=== PATIENT | male | born 1935 | race Caucasian/White ===

== ENCOUNTER 2016-07-12 14:28 | Inpatient (IN) | payer MEDICAID, MEDICARE ==
[~2016-07-12] VITALS: Ht 172.7 cm; Wt 55.0 kg
[~2016-07-12 14:28] MED LIST: ASPI1TAB PO; ATEN25TA PO; CITA20TA4 PO; FINA5TAB2 PO; FLOM5CAP PO; FOLI1TAB2 PO; LISI10TA4 PO; MIRT30TA3 PO; NITR0.4S14 SL; NORCOTAB PO; SIMV5TAB4 PO; TRAM50TA2 PO; VITMTA PO
[2016-07-12] MEDS ORDERED: IPRATROPIUM 0.5MG/ALBUTEROL 2.5MG INH SOL UD 3ML (DUONEB)(J7620) As Ordered ONE (16:59)
[2016-07-12] MEDS ORDERED: ALBUTEROL SULFATE 2.5 MG/0.5 ML INH NEB SOLN As Ordered ONE (16:59)
[2016-07-12] MEDS: FUROSEMIDE 40 MG/4 ML VIAL (J1940) IV SCH (17:00)
[2016-07-12] MEDS ORDERED: methylPREDNISolone INJ 125 MG/2 ML VIAL (J2930) As Ordered ONE (17:12)
[2016-07-12 17:18] LABS: MEAN CORPUSCULAR HEMOGLOBIN 29.3 pg (27.0-33.0); MEAN CORPUSCULAR HGB CONC 35.6 g/dl (32.0-36.5); MEAN CORPUSCULAR VOLUME 82.1 fl (80.0-96.0); RED CELL DISTRIBUTION WIDTH 14.6 % (11.5-14.5)
[2016-07-12 17:44] LABS: ALBUMIN 3.2 GM/DL (3.2-5.2); ALBUMIN/GLOBULIN RATIO 0.89 (1.00-1.93); ALKALINE PHOSPHATASE 135 U/L (45-117); ALT/SGPT 16 U/L (12-78); AMYLASE 20 U/L (25-115); ANION GAP 14 MEQ/L (8-16); AST/SGOT 17 U/L (15-37); BILIRUBIN,DIRECT 0.2 MG/DL (0.0-0.2); BILIRUBIN,TOTAL 0.6 MG/DL (0.2-1.0); BLOOD UREA NITROGEN 4 MG/DL (7-18); CALCIUM LEVEL 8.2 MG/DL (8.8-10.2); CARBON DIOXIDE LEVEL 23 MEQ/L (21-32); CHLORIDE LEVEL 80 MEQ/L (98-107); GLOMERULAR FILTRATION RATE > 60.0 (>35); GLUCOSE, FASTING 99 MG/DL (83-110); POTASSIUM SERUM 3.7 MEQ/L (3.5-5.1); SODIUM LEVEL 117 MEQ/L (136-145); TOTAL PROTEIN 6.8 GM/DL (6.4-8.2)
[2016-07-12] MEDS ORDERED: OXAZEPAM 10 MG CAP As Ordered ONE (18:40)
[2016-07-12 19:09] LABS: AMPHETAMINES LEVEL URINE NEGATIVE (NEGATIVE); BENZODIAZEPINES URINE NEGATIVE (NEGATIVE); COCAINE METABOLITE URINE NEGATIVE (NEGATIVE); CONTROL LINE INT CTR LINE PRESENT; METHADONE URINE NEGATIVE (NEGATIVE); OPIATES URINE NEGATIVE (NEGATIVE); TRICYCLIC ANTIDEPRESS URINE NEGATIVE (NEGATIVE)
[2016-07-12 19:12] LABS: FREE T4 1.52 NG/DL (0.76-1.46)
[2016-07-12] MEDS ORDERED: ATOR1TAB19 PO (19:16)
[2016-07-12] MEDS ORDERED: BISACODYL 5 MG TAB PO PRN (20:15)
[2016-07-12] MEDS ORDERED: IPRATROPIUM 0.5MG/ALBUTEROL 2.5MG INH SOL UD 3ML (DUONEB)(J7620) NEB PRN (20:30)
[2016-07-12] MEDS ORDERED: NITROGLYCERIN 0.4 MG SUBL TABLET SL PRN (20:30)
[2016-07-12] MEDS ORDERED: FUROSEMIDE 40 MG/4 ML VIAL (J1940) As Ordered ONE (20:40)
[2016-07-12] MEDS ORDERED: LORazepam 2 MG/ML VIAL (J2060) IV PRN (20:45)
--- NOTE | 2016-07-12 20:58 | REP ---
CHEST, ONE VIEW: HISTORY: Shortness of breath. COMPARISON: 05/02/2016 Calcified granuloma are present in the lungs. An increase in interstitial markings is present in the lungs. Linear densities are present in the left lower lobe consistent with scarring. The heart is normal in size. The pulmonary vasculature is normal in appearance. IMPRESSION: 1. Old granulomatous disease. 2. COPD. 3. Left lower lobe scarring. Signed by Arvin Barclay MD 07/13/2016 08:18 A
[2016-07-12 21:32] LABS: INR 1.05
[2016-07-12 21:35] LABS: ANION GAP 12 MEQ/L (8-16); BLOOD UREA NITROGEN 6 MG/DL (7-18); CARBON DIOXIDE LEVEL 23 MEQ/L (21-32); CHLORIDE LEVEL 82 MEQ/L (98-107); CREATININE FOR GFR 0.63 MG/DL (0.70-1.30); GLOMERULAR FILTRATION RATE > 60.0 (>35); GLUCOSE, FASTING 130 MG/DL (83-110); PHOSPHORUS LEVEL 2.5 MG/DL (2.5-4.9); POTASSIUM SERUM 3.8 MEQ/L (3.5-5.1); SODIUM LEVEL 117 MEQ/L (136-145)
--- NOTE | 2016-07-12 23:04 | EDDOCDS ---
Physician Documentation [facility] Name: Clint Gresham Age: 81 yrs Sex: Male : 1935 Arrival Date: 07/12/2016 Time: 14:28 Bed 7 Private MD: [facility] Disposition: 07/12 21:15 Critical Care:. ml Disposition: 07/12/16 19:45 Hospitalization ordered by Rosi Cummings for Inpatient Admission. Preliminary diagnosis are Hypo-osmolality and hyponatremia, Alcohol abuse counseling and surveillance, Alcohol abuse, Chronic obstructive pulmonary disease with (acute) exacerbation. - Bed requested for PCU. - Status is Inpatient Admission. jul - Condition is Stable. - Problem is new. - Symptoms are unchanged. Historical: - Allergies: No known drug Allergies; - Home Meds: 1. Aspirin Oral 2. Atenolol Oral Unknown 3. Folic Acid Oral 4. Lisinopril Oral 5. Simvastatin Unknown - PMHx: bowel obstruction; Cancer, Colon; COPD; Hypercholesterolemia; Hypertension; ulcers; - PSHx: Cholecystectomy; back surgery; perforated ulcer; Colon Resection; - Social history: Smoking status: Patient uses tobacco products, heavy tobacco smoker. No barriers to communication noted, The patient speaks fluent Welsh. - Family history: Not pertinent. - : The pt / caregiver states he / she is not on anticoagulants. Home medication list is obtained from [employer] import data. - Exposure Risk Screening:: None identified. Vital Signs: 14:30 BP 100 / 65 LA Sitting (auto/reg); Pulse 82; Resp 20; Temp 98.7; Pulse Ox 95% ; Weight cmb 66.68 kg / 147 lbs; Height 5 ft. 8 in. (172.72 cm); Pain 7/10; 17:35 BP 158 / 70 (auto/); js13 17:35 Pulse 66 MON; Resp 18; Pulse Ox 96% on 2 lpm NC; js13 17:50 BP 172 / 74 (auto/); js13 17:50 Pulse 70 MON; Resp 18; Pulse Ox 96% on 2 lpm NC; js13 18:05 BP 158 / 70 (auto/); js13 18:05 Pulse 70 MON; Resp 20; Pulse Ox 96% on 2 lpm NC; js13 18:49 Pulse 70 MON; Resp 22 S; Pulse Ox 88% on 2 lpm NC; jace 18:50 BP 168 / 67 (auto/); jace 19:04 Pulse 68 MON; Resp 18 S; Pulse Ox 88% on 2 lpm NC; jace 19:05 BP 174 / 82 (auto/); jace 19:19 Pulse 90 MON; Resp 20; Pulse Ox 94% 2 lpm ; jace 19:20 BP 178 / 81 (auto/); jace 19:34 Pulse 74 MON; Resp 16 S; Pulse Ox 93% on 2 lpm NC; jace 19:35 BP 176 / 80 (auto/); jace 19:49 Pulse 78 MON; Resp 20 S; Pulse Ox 93% on 2 lpm NC; jace 19:50 BP 168 / 76 (auto/); jace 20:04 Pulse 76 MON; Resp 22 S; Pulse Ox 97% on 2 lpm NC; jace 20:05 BP 197 / 88 (auto/); jace 20:19 Pulse 70 MON; Resp 20 S; Pulse Ox 95% on 2 lpm NC; jace 20:20 BP 175 / 66 (auto/); jace 20:34 Pulse 68 MON; Resp 18 S; Pulse Ox 98% on 2 lpm NC; jace 20:35 BP 176 / 80 (auto/); jace 22:05 BP 167 / 75; Pulse 84 MON; Resp 22; Pulse Ox 97% on 2 lpm NC; jace 14:30 Body Mass Index 22.35 (66.68 kg, 172.72 cm) cmb MDM: 16:45 IV Saline Lock ordered. ml 16:45 Consult PFS/PSA/Meter And Regulator Shop Supervisor ordered. ml 16:45 Consult PFS/PSA/Meter And Regulator Shop Supervisor: Patient's case requires discussion with on-call ml Psychiatrist ordered. 16:45 PSA/PFS to call Nursing Customer Operations Associate, to enter patient data on [place] Safe Act if patient ml involuntarily admitted or transferred for SI or HI ordered. 16:45 Stroke Belt Sander Operator/Pulse Ox/q 15 min VS ordered. ml 16:45 Confirm accurate psychiatric medication list and times of last dosage ordered. ml 16:45 Detain Pt Until Medically/PFS Cleared ordered. ml 16:45 Rhythm Strip to chart ordered. ml 16:45 Albuterol 5 mg Nebulizer once ordered. ml 16:45 Albuterol-Ipratropium 3 ml Inhalation once ordered. ml 16:45 Call Respiratory ordered. ml 16:45 Solu-MEDROL 125 mg IVP once ordered. ml 16:46 Acetaminophen Level Ordered. EDMS 16:46 Basic Metabolic Profile Ordered. EDMS 16:46 Complete Blood Count Ordered. EDMS 16:46 Drug Eval Toxicology ED Only Ordered. EDMS 16:46 Ethyl Alcohol (ethanol) Ordered. EDMS 16:46 Liver Profile Ordered. EDMS 16:46 Salicylate Level Ordered. EDMS 16:46 Thyroid Stimulating Hormone Ordered. EDMS 16:47 Chest, 1 View Ordered. EDMS 16:47 ECG WITH READING ER PHYS+CARDIAG ordered. EDMS 16:47 Call Respiratory complete. js13 16:55 AMYLASE Ordered. EDMS 16:55 LIPASE Ordered. EDMS 18:06 Complete Blood Count Reviewed. ml 18:06 NS 0.9% 1000 ml IV at 100 mL/hr continuous ordered. ml 18:07 BED REQUEST+ADM ordered. EDMS 18:07 Urine Random,Sodium Ordered. EDMS 18:07 Osmolality, Serum Ordered. EDMS 18:07 Osmolality,Urine Ordered. EDMS 18:07 TSH with Free T4 Ordered. EDMS 18:07 Urine Random,Creatinine Ordered. EDMS 18:21 Acetaminophen Level Reviewed. ml 18:21 Basic Metabolic Profile Reviewed. ml 18:21 Ethyl Alcohol (ethanol) Reviewed. ml 18:21 Liver Profile Reviewed. ml 18:21 Salicylate Level Reviewed. ml 18:21 AMYLASE Reviewed. ml 18:21 Thyroid Stimulating Hormone Reviewed. ml 18:21 LIPASE Reviewed. ml 18:22 Oxazepam 20 mg PO once ordered. ml 18:48 BED REQUEST+ADM ordered. EDMS 19:31 Financial registration complete. gjb 19:43 Admission / Observation Status ordered. EDMS 20:14 Furosemide 40 mg IVP once ordered. ss12 20:18 LOW FAT LOW CHOLESTEROL DIET ordered. EDMS 20:19 [facility] [place] Payment Agreement was scanned into [employer] and attached to record. gjb 20:19 PHYSICAL THERAPY EVAL & TREAT ordered. EDMS 20:22 RENAL PROFILE Ordered. EDMS 20:23 CBC WITH DIFFERENTIAL Ordered. EDMS 20:23 RENAL PROFILE Ordered. EDMS 20:23 RENAL PROFILE Ordered. EDMS 20:23 RENAL PROFILE Ordered. EDMS 20:23 RENAL PROFILE Ordered. EDMS 20:23 RENAL PROFILE Ordered. EDMS 20:25 Admission / Observation Status ordered. EDMS 20:25 Attending Doctor Change: ordered. EDMS 20:25 BRAIN NATIURETIC PEPTIDE Ordered. EDMS 20:25 AMMONIA Ordered. EDMS 20:33 CORTISOL AM Ordered. EDMS 20:39 ANTI-DIURETIC HORMONE Ordered. EDMS 20:49 THYROGLOBULIN ANTIBODIES Ordered. EDMS 20:56 RENAL PROFILE Ordered. EDMS 21:10 LIVER US Ordered. EDMS 21:11 PROTHROMBIN TIME PROFILE\E\INR Ordered. EDMS 21:45 ECHOCARD,DOPPLER/COLOR FLOW ordered. EDMS Administered Medications: 17:07 Drug: Albuterol 5 mg [albuterol sulfate 2.5 mg/0.5 mL solution for nebulization (1 mL)] sd7 Route: Nebulizer; 17:18 Follow up: Response: Nebulizer completed 17:07 Drug: Albuterol-Ipratropium 3 ml [ipratropium-albuterol 0.5 mg-3 mg(2.5 mg base)/3 mL sd7 nebulization soln (3 mL)] Route: Inhalation; 17:18 Follow up: Response: Nebulizer completed 7 17:14 Drug: Solu-MEDROL 125 mg [Solu-Medrol 500 mg intravenous solution (125 mg)] Route: IVP; js13 Site: left antecubital; 18:16 Drug: NS 0.9% 1000 ml [sodium chloride 0.9 % intravenous solution] Route: IV; Rate: 100 js13 mL/hr; Site: left antecubital; 21:00 Follow up: IV Status: Infusion discontinued jace 18:44 Drug: Oxazepam 20 mg [oxazepam 10 mg capsule (2 caps)] Route: PO; js13 20:48 Drug: Furosemide 40 mg [furosemide 10 mg/mL injection solution (4 mL)] Route: IVP; jace Site: left antecubital; Critical Care Time: 21:15 Critical care time: Bedside Care: 120 minutes, Consultation: 10 minutes. Total time: ml 130 minutes Signatures: Dispatcher [employer] EDMS Kristyn Valdivia MD MD ml Sleeman, Kacey RN Mony Kapoor RN Carl Tavarez, Lease Picker Unit ml3 Tete Jackman RN RN js13 Yannick Vitale12 Kayley Alves Carolyn RN cas Woodhouse, Samantha RT sd7 The chart was reviewed and I authenticate all verbal orders and agree with the evaluation and treatment provided.Corrections: (The following items were deleted from the chart) 16:55 16:47 LIPASE+LAB ordered. EDMS EDMS 16:55 16:47 AMYLASE+LAB ordered. EDMS EDMS 20:56 20:23 RENAL PROFILE ordered. EDMS EDMS 21:49 21:48 THYROID PROFILE ordered. EDMS EDMS 21:54 21:49 THYROID BINDING GLOBULIN ordered. EDMS EDMS Attachments: 20:19 [facility] [place] Payment Agreement gjb [email or web address]
--- NOTE | 2016-07-12 23:05 | EDDOCDS ---
Nurse's Notes [facility] Name: Clint Gresham Age: 81 yrs Sex: Male : 1935 Arrival Date: 07/12/2016 Time: 14:28 Bed 7 Private MD: [facility] [place] Diagnosis: Hypo-osmolality and hyponatremia;Alcohol abuse counseling and surveillance;Alcohol abuse;Chronic obstructive pulmonary disease with (acute) exacerbation Presentation: 07/12 15:02 Presenting complaint: Patient states: he is here because he drank too much beer and kcs needs something to calm him down. Mental Health Triage Level: Level 1- Pt displays no suicidal or homicidal ideations and does not appear to be a danger to self or others. Adult Sepsis Screening: The patient does not have new or worsening altered mentation. Patient has a respiratory rate of greater than or equal to 22 (1 point). Systolic blood pressure is less than or equal to 100 (1 point). Patient has a qSOFA score of 2. No known or suspected infection- Negative Sepsis Screen. Suicide/Homicide risk assessment- the patient denies having any suicidal and/or homicidal ideations and does not present with any other emotional, behavioral or mental health complaints. Status: Patient is not a service writer or dependent. Transition of care: patient was not received from another setting of care. 15:02 Acuity: NADJA Level 3 kcs 15:02 Method Of Arrival: Wheelchair kcs Triage Assessment: 15:05 General: Appears comfortable, slender, well developed, well nourished, Behavior is kcs cooperative, pleasant. Pain: Location: back Pain currently is 10 out of 10 on a pain scale. Neurological: Level of Consciousness is awake, alert. Respiratory: Airway is patent Respiratory effort is even, unlabored, Respiratory pattern is regular, symmetrical. Derm: Skin is intact, is healthy with good turgor, Skin is dry, Skin is normal. Historical: - Allergies: No known drug Allergies; - Home Meds: 1. Aspirin Oral 2. Atenolol Oral Unknown 3. Folic Acid Oral 4. Lisinopril Oral 5. Simvastatin Unknown - PMHx: bowel obstruction; Cancer, Colon; COPD; Hypercholesterolemia; Hypertension; ulcers; - PSHx: Cholecystectomy; back surgery; perforated ulcer; Colon Resection; - Social history: Smoking status: Patient uses tobacco products, heavy tobacco smoker. No barriers to communication noted, The patient speaks fluent Malay. - Family history: Not pertinent. - : The pt / caregiver states he / she is not on anticoagulants. Home medication list is obtained from [facility] import data. - Exposure Risk Screening:: None identified. Screenin:14 Screening information is obtained from the patient. Fall risk: At risk due to age, js13 apparent chemical impairment. Assistance ADL's: requires no assistance with activities of daily living. Abuse/DV Screen: The patient / caregiver reports he/she is: not in a situation that causes fear, pain or injury. Nutritional screening: No deficits noted. Advance Directives: There is no active DNR order. home support is adequate. Assessment: 17:14 General: Appears in no apparent distress, Behavior is appropriate for age, cooperative. js13 Pain: Denies pain. Neurological: Level of Consciousness is awake, alert. Cardiovascular: Rhythm is sinus rhythm with 1st degree heart block Chest pain is denied. Respiratory: Airway is patent Respiratory effort is even, Respiratory pattern is regular, Breath sounds with rhonchi Breath sounds with wheezes. Derm: Skin is pink, warm & dry. 17:47 General: Appears in no apparent distress, comfortable, to be sleeping. Respiratory: js13 Airway is patent Respiratory effort is even, unlabored, Respiratory pattern is regular, Breath sounds with rhonchi Breath sounds with wheezes. Derm: Skin is pink, warm & dry. 18:19 General: Appears in no apparent distress, comfortable, Behavior is appropriate for age, js13 cooperative. Pain: Denies pain. Neurological: Level of Consciousness is awake, alert. Cardiovascular: Rhythm is sinus rhythm Chest pain is denied. Respiratory: Airway is patent Respiratory effort is even, unlabored, Respiratory pattern is regular, Breath sounds with rhonchi Breath sounds with wheezes. Derm: Skin is pink, warm & dry. 20:00 Reassessment: Patient appears in no apparent distress at this time. Patient denies pain jace at this time. General: Appears in no apparent distress, Behavior is appropriate for age, cooperative. Neurological: No deficits noted. Cardiovascular: Rhythm is sinus rhythm. Respiratory: Airway is patent Respiratory effort is even, unlabored, Respiratory pattern is regular, Breath sounds with rhonchi bilaterally. GI: Abdomen is non- distended. Derm: Skin is pink, warm & dry. 21:00 Reassessment: Patient appears in no apparent distress at this time. General: Appears in jace no apparent distress, Behavior is appropriate for age, cooperative. Neurological: No deficits noted. Cardiovascular: Rhythm is sinus rhythm. Respiratory: Airway is patent Respiratory effort is even, unlabored. GI: Abdomen is non- distended. Derm: Skin is pink, warm & dry. 22:00 Reassessment: Patient appears in no apparent distress at this time. General: Appears jace comfortable, Behavior is appropriate for age, cooperative. Neurological: No deficits noted. Cardiovascular: Rhythm is sinus rhythm. Respiratory: Airway is patent Respiratory effort is even, unlabored, Respiratory pattern is regular. GI: Abdomen is flat, non- distended. Derm: Skin is pink, warm & dry. 22:51 Reassessment: Patient appears in no apparent distress at this time. General: Appears jace comfortable. Pain: Denies pain. Neurological: No deficits noted. Cardiovascular: Rhythm is sinus rhythm. Respiratory: Airway is patent Respiratory effort is even, Respiratory pattern is regular. Derm: Skin is pink, warm & dry. Vital Signs: 14:30 BP 100 / 65 LA Sitting (auto/reg); Pulse 82; Resp 20; Temp 98.7; Pulse Ox 95% ; Weight cmb 66.68 kg; Height 5 ft. 8 in. (172.72 cm); Pain 7/10; 17:35 BP 158 / 70 (auto/); js13 17:35 Pulse 66 MON; Resp 18; Pulse Ox 96% on 2 lpm NC; js13 17:50 BP 172 / 74 (auto/); js13 17:50 Pulse 70 MON; Resp 18; Pulse Ox 96% on 2 lpm NC; js13 18:05 BP 158 / 70 (auto/); js13 18:05 Pulse 70 MON; Resp 20; Pulse Ox 96% on 2 lpm NC; js13 18:49 Pulse 70 MON; Resp 22 S; Pulse Ox 88% on 2 lpm NC; jace 18:50 BP 168 / 67 (auto/); jace 19:04 Pulse 68 MON; Resp 18 S; Pulse Ox 88% on 2 lpm NC; jace 19:05 BP 174 / 82 (auto/); jace 19:19 Pulse 90 MON; Resp 20; Pulse Ox 94% 2 lpm ; jace 19:20 BP 178 / 81 (auto/); jace 19:34 Pulse 74 MON; Resp 16 S; Pulse Ox 93% on 2 lpm NC; jace 19:35 BP 176 / 80 (auto/); jace 19:49 Pulse 78 MON; Resp 20 S; Pulse Ox 93% on 2 lpm NC; jace 19:50 BP 168 / 76 (auto/); jace 20:04 Pulse 76 MON; Resp 22 S; Pulse Ox 97% on 2 lpm NC; jace 20:05 BP 197 / 88 (auto/); jace 20:19 Pulse 70 MON; Resp 20 S; Pulse Ox 95% on 2 lpm NC; jace 20:20 BP 175 / 66 (auto/); jace 20:34 Pulse 68 MON; Resp 18 S; Pulse Ox 98% on 2 lpm NC; jace 20:35 BP 176 / 80 (auto/); jace 22:05 BP 167 / 75; Pulse 84 MON; Resp 22; Pulse Ox 97% on 2 lpm NC; jace 14:30 Body Mass Index 22.35 (66.68 kg, 172.72 cm) cmb Vitals: 14:30 Log In Time: July 12, 2016 at 14:27. cmb ED Course: 14:28 Patient visited by Angelina Garcia. cmb 14:28 Patient moved to Waiting cmb 14:30 [facility] [place] is Private Physician. cmb 14:35 Patient moved to Pre RCE cmb 15:04 Triage Initiated kcs 15:46 Patient moved to Triage 3 ar3 16:21 Tete Jackman,RN is Primary Nurse. mb9 16:21 Patient moved to 7 mb9 16:36 Kristyn Valdivia MD is Attending Physician. ml 16:36 Patient visited by Kristyn Valdivia MD. ml 17:00 Inserted saline lock:. jace 17:07 LIPASE Sent. js13 17:07 AMYLASE Sent. js13 17:07 Acetaminophen Level Sent. js13 17:07 Basic Metabolic Profile Sent. js13 17:07 Complete Blood Count Sent. js13 17:07 Ethyl Alcohol (ethanol) Sent. js13 17:08 Liver Profile Sent. js13 17:08 Salicylate Level Sent. js13 17:08 Thyroid Stimulating Hormone Sent. js13 17:10 EKG done. (by ED staff). Reviewed by Kristyn Valdivia MD. dem1 17:14 The patient / caregiver is instructed regarding the plan of care and ED course. Placed js13 in gown. Bed in low position. Call light in reach. Side rails up X2. visitor services technician on. Pulse ox on. NIBP on. 17:16 Patient visited by Tete Jackman,JT. js13 17:16 Patient visited by Shan De La Torre. dem1 17:48 Patient visited by Tete Jackman,JT. js13 18:16 Osmolality, Serum Sent. js13 18:16 TSH with Free T4 Sent. js13 18:20 Patient visited by Tete Jackman,JT. js13 18:44 Osmolality,Urine Sent. js13 18:44 Urine Random,Creatinine Sent. js13 18:44 Urine Random,Sodium Sent. js13 18:44 Drug Eval Toxicology ED Only Sent. js13 18:58 Luci Alvarado,RN is Primary Nurse. jace 19:19 Rosi Cummings hr operations advisor. ys2 19:26 Patient visited by Kiera García PCA. ashlee 19:41 Primary Nurse role handed off by Tete Jackman RN ashlee 19:44 Rosi Cummings is Hospitalizing Provider. ml 20:19 [facility] [place] [place] Agreement was scanned into [employer] and attached to record. gjb 21:33 Chest, 1 View Returned. EDMS 22:02 No procedures done that require assistance. jace Administered Medications: 17:07 Drug: Albuterol 5 mg [albuterol sulfate 2.5 mg/0.5 mL solution for nebulization (1 mL)] 7 Route: Nebulizer; 17:18 Follow up: Response: Nebulizer completed 17:07 Drug: Albuterol-Ipratropium 3 ml [ipratropium-albuterol 0.5 mg-3 mg(2.5 mg base)/3 mL sd7 nebulization soln (3 mL)] Route: Inhalation; 17:18 Follow up: Response: Nebulizer completed 17:14 Drug: Solu-MEDROL 125 mg [Solu-Medrol 500 mg intravenous solution (125 mg)] Route: IVP; js13 Site: left antecubital; 18:16 Drug: NS 0.9% 1000 ml [sodium chloride 0.9 % intravenous solution] Route: IV; Rate: 100 js13 mL/hr; Site: left antecubital; 21:00 Follow up: IV Status: Infusion discontinued jace 18:44 Drug: Oxazepam 20 mg [oxazepam 10 mg capsule (2 caps)] Route: PO; js13 20:48 Drug: Furosemide 40 mg [furosemide 10 mg/mL injection solution (4 mL)] Route: IVP; jace Site: left antecubital; Intake: 21:00 IV: 300.00ml; Total: 300.00ml. jace Output: 21:00 Urine: 300.00ml (Voided); Total: 300.00ml. jace 22:05 Urine: 650.00ml (Voided); Total: 950.00ml. jace RT: 17:12 Initial Med Neb Given as ordered Patient was instructed and evaluated on procedure sd7 Patient tolerated procedure well without adverse effect. Respiratory: Breath sounds with rhonchi bilaterally. Breath sounds with wheezes bilaterally. at expiration. Order Results: Lab Order: Acetaminophen Level; SPEC'M 07/12/16 17:04 Test: ACETAMINOPHEN LEVEL; Value: < 2.0; Range: 10.0-30.0; Abnormal: Below low normal; Units: UG/ML; Status: F Lab Order: Basic Metabolic Profile; SPEC'M 07/12/16 17:04 Test: GLUCOSE, FASTING; Value: 99; Range: 83-110; Units: MG/DL; Status: F Test: BLOOD UREA NITROGEN; Value: 4; Range: 7-18; Abnormal: Below low normal; Units: MG/DL; Status: F Test: CREATININE FOR GFR; Value: 0.70; Range: 0.70-1.30; Units: MG/DL; Status: F Test: GLOMERULAR FILTRATION RATE; Value: > 60.0; Range: >35; Status: F Test: SODIUM LEVEL; Value: 117; Range: 136-145; Abnormal: Critical Low; Units: MEQ/L; Status: F Test: POTASSIUM SERUM; Value: 3.7; Range: 3.5-5.1; Units: MEQ/L; Status: F Test: CHLORIDE LEVEL; Value: 80; Range: 98-107; Abnormal: Below low normal; Units: MEQ/L; Status: F Test: CARBON DIOXIDE LEVEL; Value: 23; Range: 21-32; Units: MEQ/L; Status: F Test: ANION GAP; Value: 14; Range: 8-16; Units: MEQ/L; Status: F Test: CALCIUM LEVEL; Value: 8.2; Range: 8.8-10.2; Abnormal: Below low normal; Units: MG/DL; Status: F Test Note: ; Units are mL/min/1.73 m2 Chronic Kidney Disease Staging per NKF: Stage I & II GFR >=60 Normal to Mildly Decreased Stage III GFR 30-59 Moderately Decreased Stage IV GFR 15-29 Severely Decreased Stage V GFR <15 Very Little GFR Left ESRD GFR <15 on [employer] Lab Order: Complete Blood Count; SPEC'M 07/12/16 17:04 Test: WHITE BLOOD COUNT; Value: 10.0; Range: 4.0-10.0; Units: K/mm3; Status: F Test: RED BLOOD COUNT; Value: 3.63; Range: 4.30-6.10; Abnormal: Below low normal; Units: M/mm3; Status: F Test: HEMOGLOBIN; Value: 10.6; Range: 14.0-18.0; Abnormal: Below low normal; Units: g/dl; Status: F Test: HEMATOCRIT; Value: 29.8; Range: 42.0-52.0; Abnormal: Below low normal; Units: %; Status: F Test: MEAN CORPUSCULAR VOLUME; Value: 82.1; Range: 80.0-96.0; Units: fl; Status: F Test: MEAN CORPUSCULAR HEMOGLOBIN; Value: 29.3; Range: 27.0-33.0; Units: pg; Status: F Test: MEAN CORPUSCULAR HGB CONC; Value: 35.6; Range: 32.0-36.5; Units: g/dl; Status: F Test: RED CELL DISTRIBUTION WIDTH; Value: 14.6; Range: 11.5-14.5; Abnormal: Above high normal; Units: %; Status: F Test: PLATELET COUNT, AUTOMATED; Value: 245; Range: 150-450; Units: k/mm3; Status: F Lab Order: Drug Eval Toxicology ED Only; SPEC'M 07/12/16 18:45 Test: AMPHETAMINES LEVEL URINE; Value: NEGATIVE; Range: NEGATIVE; Status: F Test: BARBITURATES URINE; Value: NEGATIVE; Range: NEGATIVE; Status: F Test: BENZODIAZEPINES URINE; Value: NEGATIVE; Range: NEGATIVE; Status: F Test: CANNABINOIDS URINE; Value: NEGATIVE; Range: NEGATIVE; Status: F Test: COCAINE METABOLITE URINE; Value: NEGATIVE; Range: NEGATIVE; Status: F Test: METHADONE URINE; Value: NEGATIVE; Range: NEGATIVE; Status: F Test: OPIATES URINE; Value: NEGATIVE; Range: NEGATIVE; Status: F Test: TRICYCLIC ANTIDEPRESS URINE; Value: NEGATIVE; Range: NEGATIVE; Status: F Test Note: ; ALL PRESUMPTIVE POSITIVE FINDINGS ARE UNCONFIRMED NORMAL VALUES THRESHOLD IN NG/ML AMPHETAMINES 1000 METHAMPHETAMINES 1000 BARBITURATES 300 BENZODIAZEPINES 300 CANNABINOIDS (THC) 50 COCAINE METABOLITE 300 METHADONE 300 OPIATES 300 PHENCYCLIDINE 25 TRICYCLIC ANTIDEPRESSANTS 1000 RESULTS ARE FOR MEDICAL PURPOSES ONLY. ALL URINE SPECIMENS WILL BE SAVED FOR 3 DAYS. IF CONFIRMATION OF A PRESUMPTIVE POSTIVE SCREEN RESULT IS DESIRED, CALL CHEMISTRY ([phone]) AND REQUEST URINE TO BE SENT TO REFERENCE LAB. FOR A LIST OF CLOSELY RELATED COMPOUNDS PLEASE CALL THE LAB. Lab Order: Ethyl Alcohol (ethanol); SPEC'M 07/12/16 17:04 Test: ETHYL ALCOHOL (ETHANOL); Value: 0.016; Range: 0.000-0.010; Abnormal: Above high normal; Units: %; Status: F Lab Order: Liver Profile; SPEC'M 07/12/16 17:04 Test: AST/SGOT; Value: 17; Range: 15-37; Units: U/L; Status: F Test: ALT/SGPT; Value: 16; Range: 12-78; Units: U/L; Status: F Test: ALKALINE PHOSPHATASE; Value: 135; Range: 45-117; Abnormal: Above high normal; Units: U/L; Status: F Test: BILIRUBIN,TOTAL; Value: 0.6; Range: 0.2-1.0; Units: MG/DL; Status: F Test: BILIRUBIN,DIRECT; Value: 0.2; Range: 0.0-0.2; Units: MG/DL; Status: F Test: TOTAL PROTEIN; Value: 6.8; Range: 6.4-8.2; Units: GM/DL; Status: F Test: ALBUMIN; Value: 3.2; Range: 3.2-5.2; Units: GM/DL; Status: F Test: ALBUMIN/GLOBULIN RATIO; Value: 0.89; Range: 1.00-1.93; Abnormal: Below low normal; Status: F Lab Order: Salicylate Level; [facility] 07/12/16 17:04 Test: SALICYLATE LEVEL; Value: < 1.7; Range: 5.0-30.0; Abnormal: Below low normal; Units: MG/DL; Status: F Lab Order: Thyroid Stimulating Hormone; 07/12/16 17:04 Test: THYROID STIMULATING HORMONE; Value: 2.000; Range: 0.358-3.740; Units: uIU/ML; Status: F Lab Order: AMYLASE; [facility] 07/12/16 17:04 Test: AMYLASE; Value: 20; Range: 25-115; Abnormal: Below low normal; Units: U/L; Status: F Lab Order: LIPASE; [facility] 07/12/16 17:04 Test: LIPASE; Value: 96; Range: 73-393; Units: U/L; Status: F Lab Order: Urine Random,Sodium; 07/12/16 18:45 Test: SODIUM,RANDOM URINE; Value: 36; Units: MEQ/L; Status: F Lab Order: Osmolality, Serum; 07/12/16 18:14 Test: OSMOLALITY SERUM; Value: 239; Range: 280-301; Abnormal: Below low normal; Units: MOSM/KG; Status: F Lab Order: Osmolality,Urine; 07/12/16 18:45 Test: OSMOLALITY URINE; Value: 354; Range: 500-800; Abnormal: Below low normal; Units: MOSM/KG; Status: F Lab Order: TSH with Free T4; 07/12/16 18:14 Test: THYROID STIMULATING HORMONE; Value: 1.990; Range: 0.358-3.740; Units: uIU/ML; Status: F Test: FREE T4; Value: 1.52; Range: 0.76-1.46; Abnormal: Above high normal; Units: NG/DL; Status: F Lab Order: Urine Random,Creatinine; 07/12/16 18:45 Test: CREATININE,RANDOM URINE; Value: 79.4; Units: MG/DL; Status: F Lab Order: RENAL PROFILE; SPEC'M 07/12/16 20:49 Test: GLUCOSE, FASTING; Value: 130; Range: 83-110; Abnormal: Above high normal; Units: MG/DL; Status: F Test: BLOOD UREA NITROGEN; Value: 6; Range: 7-18; Abnormal: Below low normal; Units: MG/DL; Status: F Test: CREATININE FOR GFR; Value: 0.63; Range: 0.70-1.30; Abnormal: Below low normal; Units: MG/DL; Status: F Test: GLOMERULAR FILTRATION RATE; Value: > 60.0; Range: >35; Status: F Test: SODIUM LEVEL; Value: 117; Range: 136-145; Abnormal: Critical Low; Units: MEQ/L; Status: F Test: POTASSIUM SERUM; Value: 3.8; Range: 3.5-5.1; Units: MEQ/L; Status: F Test: CHLORIDE LEVEL; Value: 82; Range: 98-107; Abnormal: Below low normal; Units: MEQ/L; Status: F Test: CARBON DIOXIDE LEVEL; Value: 23; Range: 21-32; Units: MEQ/L; Status: F Test: ANION GAP; Value: 12; Range: 8-16; Units: MEQ/L; Status: F Test: CALCIUM LEVEL; Value: 8.0; Range: 8.8-10.2; Abnormal: Below low normal; Units: MG/DL; Status: F Test: PHOSPHORUS LEVEL; Value: 2.5; Range: 2.5-4.9; Units: MG/DL; Status: F Test: ALBUMIN; Value: 3.0; Range: 3.2-5.2; Abnormal: Below low normal; Units: GM/DL; Status: F Test Note: ; Units are mL/min/1.73 m2 Chronic Kidney Disease Staging per NKF: Stage I & II GFR >=60 Normal to Mildly Decreased Stage III GFR 30-59 Moderately Decreased Stage IV GFR 15-29 Severely Decreased Stage V GFR <15 Very Little GFR Left ESRD GFR <15 on [employer] Lab Order: BRAIN NATIURETIC PEPTIDE; SPEC'M 07/12/16 20:49 Test: BRAIN NATRIURETIC PEPTIDE; Value: 405; Range: <100; Abnormal: Above high normal; Units: PG/ML; Status: F Lab Order: AMMONIA; SPEC'M 07/12/16 20:49 Test: AMMONIA; Value: < 25; Range: <32; Units: uMOL/L; Status: F Lab Order: PROTHROMBIN TIME PROFILE\E\INR; SPEC'M 07/12/16 17:04 Test: PROTHROMBIN TIME; Value: 13.8; Range: 12.3-14.5; Units: SECONDS; Status: F Test: INR; Value: 1.05; Status: F Test Note: ; THERAPUTIC HUMAN INR VALUES INDICATIONS NORMAL RANGES PROPHYLAXIS/TREATMENT OF: VENOUS THROMBOSIS 2.0-3.0 PULMONARY EMBOLISM 2.0-3.0 PREVENTION OF SYSTEMIC EMBOLISM FROM: TISSUE HEART VALVES 2.0-3.0 ACUTE MYOCARDIAL INFARCTION 2.0-3.0 VALVULAR HEART DISEASE 2.0-3.0 ATRIAL FIBRILLATION 2.0-3.0 MECHANICAL VALVES(HIGH RISK) 2.5-3.5 RECURRENT MYOCARDIAL INFARCTION 2.5-3.5 Radiology Order: Chest, 1 View Test: Chest, 1 View REASON FOR EXAMINATION: sob; CHEST, ONE VIEW:; ; HISTORY: Shortness of breath.; ; COMPARISON: 05/02/2016; ; Calcified granuloma are present in the lungs. An increase in interstitial; markings is present in the lungs. Linear densities are present in the left lower; lobe consistent with scarring. The heart is normal in size. The pulmonary; vasculature is normal in appearance.; ; IMPRESSION:; 1. Old granulomatous disease.; 2. COPD.; 3. Left lower lobe scarring.; ; ; ; Unreviewed; Outcome: 19:45 Decision to Hospitalize by Provider. 22:02 Ultrasound Study completed. jace 22:02 Condition: good. jace 22:03 Discharge Assessment: patient administered narcotics -. jace 22:52 The following High Risk Discharge criteria are identified: Yes, Admitted to PCU jace accompanied by nurse, accompanied by tech, via stretcher, with oxygen, on monitor, with chart. Property :Personal belongings accompany Pt. 23:04 Patient left the ED. jul Signatures: Dispatcher [employer] EDMS Kristyn Valdivia MD MD ml Sleeman, Kacey, RN RN kcs Newman, Jill New, RN RN jan Sovie, Carolyn, RN RN Rae Gilbert, GOLF CART ATTENDANT GOLF CART ATTENDANT ar3 Kiera García, GOLF CART ATTENDANT GOLF CART ATTENDANT Shan Menendez dem1 Tete Jackman,RN RN js13 Jose, Angelina simmonsb Brandy Bowens,RT RT sd7 Corby LealRN RN mb9 Kayley Alves Yu ys2 SANJIVD
[2016-07-12 23:10] VITALS: BP 165/71
[2016-07-12] MEDS: traMADol 50 MG TAB PO SCH (23:33)
[2016-07-13 01:13] LABS: ALBUMIN 2.9 GM/DL (3.2-5.2); ANION GAP 11 MEQ/L (8-16); BLOOD UREA NITROGEN 6 MG/DL (7-18); CALCIUM LEVEL 8.1 MG/DL (8.8-10.2); CARBON DIOXIDE LEVEL 26 MEQ/L (21-32); CHLORIDE LEVEL 80 MEQ/L (98-107); GLOMERULAR FILTRATION RATE > 60.0 (>35); GLUCOSE, FASTING 145 MG/DL (83-110); PHOSPHORUS LEVEL 2.9 MG/DL (2.5-4.9); POTASSIUM SERUM 3.8 MEQ/L (3.5-5.1); SODIUM LEVEL 117 MEQ/L (136-145)
[2016-07-13 01:46] VITALS: O2SAT 98
[2016-07-13] MEDS: IPRATROPIUM 0.5MG/ALBUTEROL 2.5MG INH SOL UD 3ML (DUONEB)(J7620) NEB SCH ×4 (01:48→19:15)
[2016-07-13 04:39] LABS: EOS % 0.5 % (0.0-3.0); LARGE UNSTAINED CELL # 0.1 K/mm3 (0.0-0.4); LARGE UNSTAINED CELL % 1.8 % (0.0-4.0); LYMPH # 0.5 K/mm3 (1.5-4.5); LYMPH % 8.4 % (24.0-44.0); MEAN CORPUSCULAR HGB CONC 35.2 g/dl (32.0-36.5); MEAN CORPUSCULAR VOLUME 82.4 fl (80.0-96.0); MONO # 0.3 K/mm3 (0.0-0.8); MONO % 6.2 % (0.0-5.0); NEUTROPHILS # 4.6 K/mm3 (1.8-7.7); NEUTROPHILS % 83.2 % (36.0-66.0); PLATELET COUNT, AUTOMATED 218 k/mm3 (150-450); RED CELL DISTRIBUTION WIDTH 14.7 % (11.5-14.5); WHITE BLOOD COUNT 5.5 K/mm3 (4.0-10.0)
[2016-07-13 05:03] VITALS: BP 147/67
[2016-07-13 05:05] LABS: ANION GAP 11 MEQ/L (8-16); BLOOD UREA NITROGEN 7 MG/DL (7-18); CALCIUM LEVEL 8.2 MG/DL (8.8-10.2); CARBON DIOXIDE LEVEL 27 MEQ/L (21-32); CHLORIDE LEVEL 82 MEQ/L (98-107); CREATININE FOR GFR 0.77 MG/DL (0.70-1.30); GLOMERULAR FILTRATION RATE > 60.0 (>35); GLUCOSE, FASTING 150 MG/DL (83-110); PHOSPHORUS LEVEL 3.2 MG/DL (2.5-4.9); POTASSIUM SERUM 4.7 MEQ/L (3.5-5.1); SODIUM LEVEL 120 MEQ/L (136-145)
[2016-07-13] MEDS: OXAZEPAM 15 MG CAP PO SCH ×3 (05:37→22:57)
[2016-07-13 07:30] VITALS: BP 100/55
[2016-07-13 08:36] LABS: ALBUMIN 2.9 GM/DL (3.2-5.2); ANION GAP 11 MEQ/L (8-16); BLOOD UREA NITROGEN 7 MG/DL (7-18); CALCIUM LEVEL 8.2 MG/DL (8.8-10.2); CARBON DIOXIDE LEVEL 27 MEQ/L (21-32); CHLORIDE LEVEL 83 MEQ/L (98-107); CREATININE FOR GFR 0.64 MG/DL (0.70-1.30); GLOMERULAR FILTRATION RATE > 60.0 (>35); GLUCOSE, FASTING 129 MG/DL (83-110); PHOSPHORUS LEVEL 2.8 MG/DL (2.5-4.9); POTASSIUM SERUM 3.7 MEQ/L (3.5-5.1); SODIUM LEVEL 121 MEQ/L (136-145)
[2016-07-13 08:49] LABS: CORTISOL AM 6.8 UG/DL (4.3-22.4)
[2016-07-13] MEDS ORDERED: LISINOPRIL 10 MG TAB PO SCH (09:00)
[2016-07-13] MEDS: FUROSEMIDE 40 MG/4 ML VIAL (J1940) IV SCH ×2 (10:07→17:33)
[2016-07-13] MEDS: MULTIVITAMINS/MINERALS THERAP 1 TAB PO SCH (10:08)
[2016-07-13] MEDS: ATENOLOL 25 MG TAB PO SCH (10:08)
[2016-07-13] MEDS: ASPIRIN 81 MG ENTERIC TAB PO SCH (10:08)
[2016-07-13] MEDS: FOLIC ACID 1 MG TAB PO SCH (10:08)
[2016-07-13] MEDS: ATORVASTATIN 10 MG TAB PO SCH (10:09)
[2016-07-13] MEDS: TAMSULOSIN 0.4 MG CAP PO SCH (10:09)
[2016-07-13] MEDS: CitaloPRAM (CeleXA) 20 MG TAB PO SCH (10:09)
[2016-07-13] MEDS: THIAMINE 100 MG TAB PO SCH (10:09)
[2016-07-13] MEDS: traMADol 50 MG TAB PO SCH ×2 (10:09→20:38)
[2016-07-13] MEDS: ENOXAPARIN 40 MG/0.4 ML SYRINGE (J1650) SC SCH (10:23)
--- NOTE | 2016-07-13 10:24 | REP ---
RIGHT UPPER QUADRANT ULTRASOUND: Real-time sonographic evaluation of the right upper quadrant performed. Patient has had a prior cholecystectomy. There is no intrahepatic biliary dilatation. Common bile duct measurement of 8 mm is within normal limits. Calcified granulomas are seen in the liver. Echotexture is heterogenous with no gross mass. Main portal vein is slightly dilated at 15 mm. Pancreas as visualized is grossly unremarkable, but not well seen due to overlying bowel gas. Right kidney demonstrates no hydronephrosis with normal size at 12.2 cm in length. There is no free fluid. IMPRESSION: Status post cholecystectomy. No significant biliary dilatation. Multiple calcified granulomas in the liver with heterogeneous echotexture. Mildly dilated main portal vein at 15 mm could indicate some degree of portal hypertension. Signed by Quoc Ferrari MD 07/13/2016 05:20 P
[2016-07-13] MEDS: FINASTERIDE 5 MG TAB PO SCH (11:24)
[2016-07-13 12:00] VITALS: BP 112/59
--- NOTE | 2016-07-13 12:17 | HPE ---
DATE OF ADMISSION: 07/12/2016 PRIMARY CARE PHYSICIAN: Patient is seeing Dr. Sy at the [facility] ([place]). CHIEF COMPLAINT: Fatigue, anxiety, and alcohol abuse. HISTORY OF PRESENT ILLNESS: Mr. Gresham is an 81-year-old male with multiple past medical history who presented to the emergency room (ER) due to experiencing fatigue as well as anxiety. Patient expressed that he has been having anxiety for a long time and he has been drinking to help his anxiety. Patient expressed that he drinks about four or five cans of beer. However, patient expressed that he does not drink regularly. Patient noticed that for the past several days he has been more fatigued and tired; also this morning patient developed dyspnea. Patient denies chills and night sweats; however, patient expressed that he felt warm. He did not take his temperature. Patient has chronic dry cough; however, patient expressed that today's cough has increased with production of white sputum. Patient was at [facility] from 04/29/2016 to 05/05/2016, due to intestinal obstruction due to scarring. At the emergency room (ER), patient was found to have low sodium level (117) as well as abnormal free T4. Patient also found to have increased ethyl alcohol blood level (0.016). In the ER, the patient received breathing treatment as well as Solu-Medrol 125 mg and started on normal saline as well as one dose of oxazepam 20 mg, and hospitalist was called to admit the patient. ALLERGIES: No known drug allergies. PAST MEDICAL HISTORY: 1. Small intestinal obstruction secondary to adhesions. 2. Chronic obstructive pulmonary disease (COPD). 3. Coronary artery disease status post coronary artery bypass. 4. Hypertension. 5. Hypercholesterolemia. 6. Hyponatremia. 7. Tobacco abuse. 8. Alcohol abuse. 9. Colorectal cancer. 10. Perforated ulcer. PAST SURGICAL HISTORY: 1. Status post partial gastrectomy. 2. Partial colectomy. 3. Status post iliac artery stent. 4. Coronary artery bypass. 5. Back surgery. HOME MEDICATIONS: - aspirin 81 mg by mouth daily - atenolol 25 mg by mouth daily - atorvastatin calcium 10 mg by mouth daily - citalopram hydrobromide 20 mg by mouth daily - finasteride 5 mg by mouth daily - folic acid 1 mg by mouth daily - lisinopril 5 mg by mouth daily - mirtazapine 10 mg by mouth at bedtime as needed for sleep - multivitamin one tablet by mouth daily - nitroglycerin 0.4 mg SL - Flomax 0.4 mg by mouth daily - tramadol 50 mg by mouth twice a day SOCIAL HISTORY: Patient expressed that he lives by himself. Patient has three sons who are healthy. Patient expressed that he drinks about four or five cans of beer two or three times per week. However, patient expressed that he drinks due to his anxiety. Patient was a person; however, patient has retired. Patient denies illicit drug use. Patient smoked about 18 cigarettes per day for the past 72 years. FAMILY HISTORY: Patient had four brothers and one sister who have . Patient's father at age 64 due to unknown cause. Patient's mother at age 78 due to cancer. Patient expressed that cardiac issues as well as diabetes runs in the family. REVIEW OF SYSTEMS: GENERAL: Patient expressed that he feels fatigued. Patient denies chills or night sweats; however, patient expressed that he feels warm, but he did not take his temperature. Patient denies weight change. HEENT: Patient expressed that he sometimes has a problem with swallowing food. Patient denies acute vision or hearing changes. Patient also denies sinsuitis. NECK: Patient denies lumps, bumps, or decreased range of motion of his neck. HEART: Patient denies chest pain, palpitations, racing or skipping heartbeat. LUNGS: Patient denies wheezing; however, patient expressed that he has been experiencing shortness of breath since this morning as well as chronic cough with production of sputum since this morning. ABDOMEN: Patient denies abdominal pain, nausea, vomiting, diarrhea, or constipation, melena or hematochezia. NEURO: Patient denies history of transient ischemic attack (TIA), cerebrovascular accident (CVA), or seizure type activity. PHYSICAL EXAMINATION: VITAL SIGNS: Blood pressure 100/65, pulse 85, respiratory rate 20, temperature 98.7, pulse oximetry 95%, weight 66.68 kg, height 172.72 cm, body mass index (BMI) 22.35. GENERAL APPEARANCE: Patient was lying in bed in no acute distress. Patient was awake, alert, and oriented to time, place and person. HEENT: Normocephalic, atraumatic. Pupils are equal. Oral mucosa is moist. NECK: Patient has mild thyromegaly. No lymphadenopathy. HEART: Regular rate and rhythm, normal S1, S2. LUNGS: Patient has wheezing, both on inhalation and exhalation, as well as scattered rhonchi at the base of the lung. ABDOMEN: Soft, nontender. Positive bowel sounds in all quadrants. Patient has healed surgical incisional areas on the abdomen. EXTREMITIES: Patient has lower extremity edema, +2 pulses in both lower extremities. Normal range of motion in both upper and lower extremities. Patient has missing proximal interphalangeal (PIP) joints on the left second digit. NEURO: Cranial nerves II-XII was intact. No focal deficiencies. LABORATORY DATA: White blood cells 10, red blood cells 3.63, hemoglobin 10.6, hematocrit 29.8, MCV 82.1, MCH 29.3, MCHC 35.6, RDW 14.6, platelet count 245. Sodium 117, potassium 3.7, chloride 80, carbon dioxide 23, anion gap 14, BUN 4, creatinine 0.7, GFR more than 60, fasting glucose 99, osmolarity 239, calcium 8.2, total bilirubin 0.6, direct bilirubin 0.2, AST 17, ALT 16, alkaline phosphatase 135, total protein 6.8, albumin 3.2, amylase 20, lipase 96, TSH 1.99, free T4 1.52. Urine random osmolarity 354, urine random creatinine 79.4, urine random sodium 36. Urine tox negative except salicylates less than 1.7, acetaminophen less than 2. Ethyl alcohol 0.16. Total globulin antibody is pending. IMAGING STUDIES: Chest x-ray shows old granulomatous disease, COPD, and left lower lobe scarring. ASSESSMENT AND PLAN: 1. Hyponatremia. Dr. Levine has been consulted. Appreciate Dr. Levine's recommendations. Dr. Levine recommended that the patient be started on IV Lasix 40 mg twice a day. We started dosing in the emergency room. Also, we have ordered urine random osmolarity as well as urine random creatinine and urine random sodium; results are pending at this time. Patient's FENa score is calculated to be 0.27%. It is possible that the patient is experiencing euvolemic hyponatremia possibly related to syndrome of inappropriate secretion of antidiuretic hormone (SIADH). We will continue monitoring patient's sodium level and we will repeat renal profile every four hours. Also, we have ordered a.m. cortisol as well as antidiuretic hormone; result is pending at this time. 2. Hypothyroidism. Physical examination indicated that the patient possibly has mild thyromegaly. Lab work indicated increase of free T4. We have ordered thyroglobulin antibody; result is pending at this time. Patient required to have thyroid ultrasound; however, this can possibly be done as an outpatient. At this time, we will continue patient on home dosage of beta amie (atenolol 25 mg by mouth daily). EKG did not show any signs of atrial fibrillation (AFib) or atrial flutter. We will continue to monitor patient for any abnormal symptoms. Patient is admitted to progressive care unit (PCU) for further monitoring. 3. Alcohol abuse. Patient has been having alcohol abuse for many years. Therefore, we have started the patient on Serax 50 mg every eight hours as well as Ativan 2 mg every 2 hours as needed anxiety. Due to possibility of liver abnormalities secondary to alcohol abuse, we have ordered liver ultrasound as well as PT/INR and result is pending at this time. Also due to alcoholism, we will continue patient on folic acid 1 mg by mouth daily, as well as thiamine 100 mg by mouth daily. 4. Hypertension. We will continue patient on lisinopril 5 mg by mouth daily as well as Lasix 40 mg IV twice a day. 5. Chronic obstructive pulmonary disease (COPD). We have started the patient on breathing treatments; also patient is on oxygen nasal cannula for the saturation of 88-92%. 6. Back pain. We will continue patient on Ultram home dosage (50 mg by mouth twice a day). 7. Insomnia. We will continue patient on home dosage of mirtazapine 10 mg by mouth at bedtime as needed for sleep. 8. Anxiety. We will continue patient on Celexa 20 mg by mouth daily, also patient is on beta amie. 9. Benign prostatic hypertrophy (BPH). We will continue patient on Flomax as well as Proscar 5 mg by mouth daily. 10. Deep vein thrombosis (DVT) prophylaxis. Patient is on Lovenox 40 mg subcutaneous daily. 11. Hyperlipidemia. Patient is on Lipitor 10 mg by mouth daily. 12. Coronary artery disease. Patient is status post coronary artery bypass. At this time, we will continue patient on aspirin. Also, patient is on beta amie as well as Lipitor. Also, we will continue the patient on lisinopril. 13. Problem with swallowing. We have ordered aspiration precautions. Patient needs to have swallow evaluation. However, we will continue patient on low fat, low cholesterol, and no salt diet. My preceptor for this patient encounter was Dr. Rosi Cummings. The preceptor was physically present in the building during the encounter and was fully available as needed. All aspects of the patient interview, examination, medical decision making process, and medical care plan development were reviewed and approved by the preceptor. The preceptor is aware and concurs with the plan as stated in the body of this note and will attest to such by his/her co-signature.
[2016-07-13 12:25] LABS: OSMOLALITY URINE 242 MOSM/KG (500-800)
--- NOTE | 2016-07-13 13:12 | IPNPDOC ---
Text Note Date of Service The patient was seen on 07/13/16 at 12:46. NOTE Subjective: Patient is a 81 year old male with a PMHx of COPD, SBO 2/2 adhesions, CAD s/p CABG, HTN, DLP, Colorectal CA, Perforated ulcer, Hx of hyponatremia, who presented to the ER with complaints of fatigue, anxiety and alcohol abuse. Patient noted that he was anxious at home and took alcohol to help control it. Patient had complaints of a shortness of breath and a non-productive cough. Patient was seen and examined at the bedside. He reports that he was feeling well, no acute complaints today. Objective: Vitals (See below) General: Sitting up in bed, no acute distress, AAOx3 HEENT: NC, AT CVS: RRR, +S1S2 Lungs: Fair air entry b/l, - w/r/r Abdomen: Soft, ND, NT, +BSx4 Extremities: b/l pitting edema (L > R), -calf tenderness Assessment and plan: 1. Hyponatremia - possibly 2/2 SIADH, beer potomania, fluid overload - Has no signs of confusion, or altered mental status, no seizure episodes - No focal weakness - CXR with granulomatous disease, COPD, left lower lobe scarring - Sodium on admission was 117, has shown improvement - will continue to check BMP + Albumin q4 hours - will c/w lasix 40 IV BID - Nephrology (Dr. Levine) following - appreciate their input 2. Normocytic anemia - will check iron panel, b12, folate, reticulocyte count 3. Granulomatous disease - CXR with granulomas; US of liver reveals granulomas 4. Abnormal thyroid function - TSH normal; Mild elevation of free T4 - will need repeat of thyroid function test - thyroglobulin antibody negative - outpatient follow up with ultrasound 5. Alcohol abuse - c/w Folate, Thiamine and Multivitamine - alcohol withdrawal precautions - c/w serax 15mg PO q8h 6. HTN - BP well controlled - c/w lisinopril 5mg po qd with holding parameters 7. COPD - c/w duoneb breathing treatments 8. Insomnia - c/w mirtazapine PRN 9. Back pain - c/w ultram 10. Anxiety - c/w celeza and atenolol 11. BPH - c/w tamsulosin and finasteride 12. DLP - c/w lipitor 13. Swallowing difficulty - c/w aspiration precautions 14. CAD - s/p CABG - c/w ASA, Atenolol, Lipitor and Lisinopril 15. DVT prophylaxis - c/w Lovenox VS,Fishbone, I+O VS, Fishbone, I+O Laboratory Tests 07/12/16 17:04 Red Blood Count 3.63 L, Mean Corpuscular Volume 82.1, Mean Corpuscular Hemoglobin 29.3, Mean Corpuscular Hemoglobin Concent 35.6, Red Cell Distribution Width 14.6 H 07/12/16 20:49 Anion Gap 12 07/13/16 00:32 Anion Gap 11 07/13/16 04:26 Red Blood Count 3.59 L, Mean Corpuscular Volume 82.4, Mean Corpuscular Hemoglobin 29.0, Mean Corpuscular Hemoglobin Concent 35.2, Red Cell Distribution Width 14.7 H, Anion Gap 11, Neutrophils (%) (Auto) 83.2 H, Lymphocytes (%) (Auto) 8.4 L, Monocytes (%) (Auto) 6.2 H, Eosinophils (%) (Auto ) 0.5, Basophils (%) (Auto) 0.0, Neutrophils # (Auto) 4.6, Lymphocytes # (Auto) 0.5 L, Monocytes # (Auto) 0.3, Eosinophils # (Auto) 0.0, Basophils # (Auto) 0.0 07/13/16 07:57 Anion Gap 11 Vital Signs Date Time Temp Pulse Resp B/P Pulse Ox O2 Delivery O2 Flow Rate FiO2 07/13/16 10:09 20 07/13/16 10:08 82 114/74 07/13/16 08:00 Room Air 07/13/16 07:30 97.5 95 07/13/16 05:03 1.0 I&O- Last 24 Hours up to 6 AM 07/13/16 06:00 Output Total 425 ml Balance -425 ml PIA PATEL MD Jul 13, 2016 13:12
[2016-07-13 13:15] LABS: ANION GAP 12 MEQ/L (8-16); BLOOD UREA NITROGEN 8 MG/DL (7-18); CALCIUM LEVEL 8.6 MG/DL (8.8-10.2); CARBON DIOXIDE LEVEL 27 MEQ/L (21-32); CHLORIDE LEVEL 84 MEQ/L (98-107); CREATININE FOR GFR 0.83 MG/DL (0.70-1.30); GLOMERULAR FILTRATION RATE > 60.0 (>35); GLUCOSE, FASTING 115 MG/DL (83-110); PHOSPHORUS LEVEL 2.4 MG/DL (2.5-4.9); POTASSIUM SERUM 4.3 MEQ/L (3.5-5.1); SODIUM LEVEL 123 MEQ/L (136-145)
[2016-07-13 13:41] LABS: FERRITIN 31 NG/ML (26-388); PERCENT SATURATION 8.8 % (19.7-37.4); TOTAL IRON BINDING CAPACITY 387 UG/DL (250-450)
[2016-07-13 13:48] LABS: RETIC HEMOGLOBIN CONTENT CHr 30.4 PG (24-36); RETICULOCYTE ABSOLUTE ADVIA212 101 x10(9)/L (17-77)
[2016-07-13 13:53] LABS: FOLATE > 24.0 NG/ML (>5.4); VITAMIN B12 LEVEL 297 PG/ML (247-911)
--- NOTE | 2016-07-13 14:09 | CR ---
DATE OF CONSULTATION: 07/13/2016 REQUESTING PHYSICIAN: Dr. Garvin CONSULTING PHYSICIAN: Dr. Levine REASON FOR CONSULTATION: Management for hyponatremia. CHIEF COMPLAINT: The patient presented to the hospital last night with fatigue, anxiety, and history of alcohol abuse. HISTORY OF PRESENT ILLNESS: Mr. Clint Gresham is an 81-year-old male with a past medical history of alcohol abuse. He drinks about 5 cans of alcohol every day. He had been feeling much more anxious recently. He tried to increase his drinks to help with anxiety, but that was not helping him. He started feeling more and more fatigued and tiredness. He also was complaining of shortness of breath. He presented to the emergency room yesterday where on initial triage labs he was found to have a sodium of 117. The patient was admitted to the hospital for symptomatic hyponatremia and nephrology service was called for further management of hyponatremia. The patient was already discussed by me with the on-call hospitalist last night and after looking at the labs and discussing the patient the patient was started on Lasix 40 mg IV twice a day and his IV fluids were held. I saw the patient at bedside today. He was having breakfast. He does not have any neurological symptoms at this time. PAST MEDICAL HISTORY: 1. Chronic obstructive pulmonary disease (COPD). 2. History of coronary artery disease status post coronary artery bypass graft (CABG). 3. Hypertension. 4. Hyperlipidemia. 5. History of tobacco abuse. 6. Alcohol abuse. 7. History of perforated duodenal ulcer in the past. PAST SURGICAL HISTORY: 1. Status post partial gastrectomy. 2. Status post partial colectomy. 3. Status post iliac artery stent. 4. Status post coronary artery bypass grafting. 5. Status post back surgery. ALLERGIES: Patient has no known drug allergies. HOME MEDICATIONS: - aspirin 81 mg by mouth daily - atenolol 25 mg by mouth daily - atorvastatin 10 mg by mouth daily - citalopram 20 mg daily - finasteride 5 mg daily - folic acid 1 mg - lisinopril 5 mg - mirtazapine 10 mg at bedtime - multivitamin - nitroglycerin sublingual as needed - Flomax 0.4 mg by mouth daily - tramadol 50 mg by mouth twice a day FAMILY HISTORY: There is no significant family history of end stage renal disease requiring hemodialysis. Positive family history of cardiac disease and diabetes in the family. SOCIAL HISTORY: The patient lives alone. He drinks about five cans of alcohol every day. He denies any drug abuse. He is an active smoker. He smokes about 18 cigarettes a day. REVIEW OF SYSTEMS: CONSTITUTIONAL: The patient reports fatigue, anxiety, feeling weak and tired. EYES: He denies any recent blurry vision or eye pain. ENT: He denies any ear discharge, ear infection, sore throat, dysphagia, odynophagia. CARDIOVASCULAR: He reports history of coronary artery disease, but he denies any chest pain. RESPIRATORY: The patient does report some shortness of breath; however, he denies any wheezing or cough. GI: He denies any abdominal pain, constipation or diarrhea. GENITOURINARY: He denies any dysuria or hematuria, but he does report history of benign prostatic hypertrophy (BPH). MUSCULOSKELETAL: Patient reported weakness and lethargy. CENTRAL NERVOUS SYSTEM (ASSI[employer]): He denies any history of seizures or strokes. PSYCHIATRIC: He reports anxiety and alcohol abuse. All other review of systems is negative. PHYSICAL EXAMINATION: Patient is awake, alert, oriented times three, sitting in the bed, eating his breakfast at this time. VITAL SIGNS: Temperature 97.5 degrees Fahrenheit, blood pressure 114/74, pulse 82, respiratory rate 18, saturating 95% on room air. INTAKE AND OUTPUT: Urine output recorded overnight as 1325 mL. Weight on the bed scale is 64.1 kg. HEAD AND NECK EXAM: Extraocular muscles intact. Pupils equally round and reactive to light. Neck is supple. There is mildly elevated jugular venous distention. CARDIOVASCULAR: S1, S2. Regular rate. No murmur, rub or gallop. RESPIRATORY: Decreased breath sounds at the bases. Mild expiratory rhonchi on expiration. ABDOMEN: Soft. Positive bowel sounds. Nontender. No ascites. No organomegaly. There is old midline surgical scar visible in the abdomen. EXTREMITIES: No clubbing or cyanosis. Pulses are 2+. He has 1+ edema of the bilateral lower extremities. CENTRAL NERVOUS SYSTEM: No focal neurological deficit. Power is 5/5 in all extremities. LAB REVIEW: CBC showed a WBC of 5.5, hemoglobin 10.4, and platelets 218. Urine random osmolality was 354, random creatinine was 79.4 and sodium was 36. A repeat random osmolality done this morning shows it is 242. BMP done today morning showed sodium 121 and it was 117 on admission, potassium 3.7, chloride 83, bicarbonate 27, BUN 7, creatinine 0.64, calcium 8.2, phosphorus 2.8, albumin 2.9. MICROBIOLOGY: Influenza is negative. IMAGING: Ultrasound of the liver done today morning showed status post cholecystectomy, no significant biliary dilatation, multiple calcified granulomas in the liver. A chest x-ray done last night showed old granulomatous disease, chronic obstructive pulmonary disease, left lower lobe scarring. CURRENT MEDICATIONS: Patient's current medications were all reviewed by me. He is on DuoNeb, aspirin, atenolol, atorvastatin, Dulcolax, Celexa, Lovenox, Proscar, folic acid. He was on Lasix 40 mg IV twice a day, but I changed it to 20 mg IV twice a day. He is on lisinopril 5 mg daily, mirtazapine, multivitamin, nitroglycerin, oxazepam, Flomax, thiamine, tramadol, and he has been started on potassium chloride 40 mEq by mouth daily as well. ASSESSMENT: 81-year-old male with past medical history of hypertension, coronary artery disease, COPD, history of alcohol abuse, admitted at this time with symptomatic hyponatremia. PLAN: 1. Patient has hypotonic hyponatremia with high urine osmolality and high urine sodium and clinically slightly volume overloaded on physical exam. Most likely, it is syndrome of inappropriate secretion of antidiuretic hormone (SIADH), but his beer drinking and use of lisinopril at home might also have contributed. However, treatment would be the same. Avoid IV fluids. He has already been started on IV Lasix. I am going to decrease the dose to 20 mg IV twice a day. I already see an improvement in the urine osmolality with IV Lasix that he is on. I have already stopped the lisinopril as well because sometimes lisinopril can also cause hyponatremia. If patient's blood pressure goes up, we shall start him on amlodipine. The patient also needs to increase his oral intake. He needs to take a regular diet. Most likely, he is just drinking alcohol at home, so low osmolar diet can also contribute to hyponatremia. However, sodium level is improving. Continue to monitor the BMP every four hours until the sodium goes above 130. 2. Hypertension. As mentioned above, ANNA inhibitor has been stopped. Continue atenolol 25 mg by mouth daily. If needed, calcium channel blockers can be started. 3. History of coronary artery disease, possible congestive heart failure. I do not have any echocardiogram available on this patient during this admission. It is possible that patient might be in congestive heart failure as well. I have ordered an echocardiogram. Report is pending. Continue the diuretics at this time. 4. Chronic obstructive pulmonary disease. The patient is getting nebulizations at this time. The rest of the management is as per primary team. Thank you for involving us in the care of this patient. We shall be happy to follow the patient along with you tomorrow morning. Plan of care was already discussed with Dr. Garvin today.
[2016-07-13] MEDS: POTASSIUM CHLORIDE 10 MEQ SR TABLET PO SCH (14:30)
[2016-07-13 16:00] VITALS: BP 102/66
[2016-07-13 16:44] LABS: ANION GAP 12 MEQ/L (8-16); BLOOD UREA NITROGEN 11 MG/DL (7-18); CALCIUM LEVEL 8.3 MG/DL (8.8-10.2); CARBON DIOXIDE LEVEL 28 MEQ/L (21-32); CHLORIDE LEVEL 83 MEQ/L (98-107); CREATININE FOR GFR 0.88 MG/DL (0.70-1.30); GLOMERULAR FILTRATION RATE > 60.0 (>35); GLUCOSE, FASTING 132 MG/DL (83-110); PHOSPHORUS LEVEL 2.2 MG/DL (2.5-4.9); POTASSIUM SERUM 3.9 MEQ/L (3.5-5.1); SODIUM LEVEL 123 MEQ/L (136-145)
[2016-07-13] MEDS ORDERED: IRON SUCROSE 100 MG/5 ML INJ (J1756) IV ONE (17:45)
[2016-07-13] MEDS ORDERED: SODIUM PHOSPHATE INJ 20 MMOL in D5W 250 ML IV ONE (19:00)
[2016-07-13] MEDS ORDERED: IRON SUCROSE 25 MG in NS 50 ML IV ONE (19:00)
--- NOTE | 2016-07-13 19:47 | ECGEPIP ---
Stationary ECG Study [facility] - ED Test Date: 2016-07-12 Pat Name: KAREEN SHARMA Department: Room: - Gender: M Analyst Microbiology Lab: kai : [id number] Requested By: Kristyn Valdivia Order Number: [id number] Reading MD: Valentine Suero Measurements Intervals Hessel Rate: 69 P: 96 ME: 243 QRS: 27 QRSD: 98 T: 52 QT: 457 QTc: 490 Interpretive Statements SINUS RHYTHM WITH FIRST DEGREE AV BLOCK MINIMAL ST DEPRESSION PROLONGED QT INTERVAL NO PRIOR FOR COMPARISON Electronically Signed On 07-13-2016 19:47:09 EST by Valentine Suero
[2016-07-13 20:00] VITALS: BP 131/65
[2016-07-13] MEDS ORDERED: IRON SUCROSE 475 MG in NS 250 ML IV ONE (20:00)
[2016-07-13] MEDS: MIRTAZAPINE 15 MG TAB PO PRN (20:38)
[2016-07-13 20:41] LABS: ALBUMIN 2.9 GM/DL (3.2-5.2); ANION GAP 10 MEQ/L (8-16); BLOOD UREA NITROGEN 13 MG/DL (7-18); CALCIUM LEVEL 8.2 MG/DL (8.8-10.2); CARBON DIOXIDE LEVEL 28 MEQ/L (21-32); CHLORIDE LEVEL 87 MEQ/L (98-107); CREATININE FOR GFR 0.97 MG/DL (0.70-1.30); GLOMERULAR FILTRATION RATE > 60.0 (>35); GLUCOSE, FASTING 138 MG/DL (83-110); PHOSPHORUS LEVEL 2.3 MG/DL (2.5-4.9); POTASSIUM SERUM 3.9 MEQ/L (3.5-5.1); SODIUM LEVEL 125 MEQ/L (136-145)
[2016-07-14] VITALS (13 sets, daily range): BP systolic 101–160; BP diastolic 56–73
[2016-07-14] MEDS: IPRATROPIUM 0.5MG/ALBUTEROL 2.5MG INH SOL UD 3ML (DUONEB)(J7620) NEB SCH ×4 (01:59→19:54)
[2016-07-14] MEDS: OXAZEPAM 15 MG CAP PO SCH (06:17)
[2016-07-14 06:23] LABS: EOS % 0.5 % (0.0-3.0); LARGE UNSTAINED CELL # 0.2 K/mm3 (0.0-0.4); LARGE UNSTAINED CELL % 2.2 % (0.0-4.0); LYMPH # 1.2 K/mm3 (1.5-4.5); LYMPH % 14.1 % (24.0-44.0); MEAN CORPUSCULAR HEMOGLOBIN 28.1 pg (27.0-33.0); MEAN CORPUSCULAR HGB CONC 33.1 g/dl (32.0-36.5); MONO # 0.5 K/mm3 (0.0-0.8); MONO % 6.1 % (0.0-5.0); NEUTROPHILS # 6.8 K/mm3 (1.8-7.7); NEUTROPHILS % 77.1 % (36.0-66.0); PLATELET COUNT, AUTOMATED 242 k/mm3 (150-450); WHITE BLOOD COUNT 8.8 K/mm3 (4.0-10.0)
[2016-07-14] MEDS: ATENOLOL 25 MG TAB PO SCH (06:39)
[2016-07-14 08:04] LABS: ALBUMIN 3.1 GM/DL (3.2-5.2); ALBUMIN/GLOBULIN RATIO 0.86 (1.00-1.93); ALKALINE PHOSPHATASE 128 U/L (45-117); ALT/SGPT 16 U/L (12-78); ANION GAP 9 MEQ/L (8-16); AST/SGOT 24 U/L (15-37); BILIRUBIN,TOTAL 0.2 MG/DL (0.2-1.0); BLOOD UREA NITROGEN 9 MG/DL (7-18); CALCIUM LEVEL 8.4 MG/DL (8.8-10.2); CARBON DIOXIDE LEVEL 31 MEQ/L (21-32); CHLORIDE LEVEL 93 MEQ/L (98-107); CREATININE FOR GFR 0.78 MG/DL (0.70-1.30); GLOMERULAR FILTRATION RATE > 60.0 (>35); GLUCOSE, FASTING 132 MG/DL (83-110); POTASSIUM SERUM 3.8 MEQ/L (3.5-5.1); SODIUM LEVEL 133 MEQ/L (136-145); TOTAL PROTEIN 6.7 GM/DL (6.4-8.2)
[2016-07-14] MEDS: FUROSEMIDE 40 MG/4 ML VIAL (J1940) IV SCH ×2 (08:52→17:33)
[2016-07-14] MEDS: MULTIVITAMINS/MINERALS THERAP 1 TAB PO SCH (08:52)
[2016-07-14] MEDS: POTASSIUM CHLORIDE 10 MEQ SR TABLET PO SCH (08:52)
[2016-07-14] MEDS: ENOXAPARIN 40 MG/0.4 ML SYRINGE (J1650) SC SCH (08:52)
[2016-07-14] MEDS: ATORVASTATIN 10 MG TAB PO SCH (08:52)
[2016-07-14] MEDS: CitaloPRAM (CeleXA) 20 MG TAB PO SCH (08:53)
[2016-07-14] MEDS: FINASTERIDE 5 MG TAB PO SCH (08:53)
[2016-07-14] MEDS: THIAMINE 100 MG TAB PO SCH (08:53)
[2016-07-14] MEDS: FOLIC ACID 1 MG TAB PO SCH (08:53)
[2016-07-14] MEDS: TAMSULOSIN 0.4 MG CAP PO SCH (08:53)
[2016-07-14] MEDS: ASPIRIN 81 MG ENTERIC TAB PO SCH (08:53)
[2016-07-14] MEDS: traMADol 50 MG TAB PO SCH ×2 (08:54→21:14)
[2016-07-14] MEDS: amLODIPine 5 MG TAB PO SCH (11:00)
--- NOTE | 2016-07-14 12:06 | IPNPDOC ---
Text Note Date of Service The patient was seen on 07/14/16 at 11:59. NOTE Subjective: Patient is a 81 year old male with a PMHx of COPD, SBO 2/2 adhesions, CAD s/p CABG, HTN, DLP, Colorectal CA, Perforated ulcer, Hx of hyponatremia, who presented to the ER with complaints of fatigue, anxiety and alcohol abuse. Patient noted that he was anxious at home and took alcohol to help control it. Patient had complaints of a shortness of breath and a non-productive cough. Patient was seen and examined at the bedside. He denies any problems overnight. Objective: Vitals (See below) General: Sitting up in bed, no acute distress, AAOx3 HEENT: NC, AT CVS: RRR, +S1S2 Lungs: Fair air entry b/l, - w/r/r Abdomen: Soft, ND, NT, +BSx4 Extremities: b/l pitting edema (L > R), -calf tenderness Assessment and plan: 1. Hyponatremia - possibly 2/2 SIADH, beer potomania, fluid overload - Has no signs of confusion, or altered mental status, no seizure episodes - No focal weakness - CXR with granulomatous disease, COPD, left lower lobe scarring - Sodium on admission was 117, has shown improvement; currently at 133 - will continue to check BMP + Albumin q4 hours - will c/w lasix 40 IV BID - Nephrology (Dr. Levine) following - appreciate their input 2. Normocytic anemia - B12 and Folate adequate - Reticulocyte index of 1.4 - hypoproliferative - Iron panel consistent with ROSE - s/p Iron sucrose 500mg IV on 07/13 - will c/w ferrous sulfate 325 BID 3. Granulomatous disease - CXR with granulomas; US of liver reveals granulomas 4. Abnormal thyroid function - TSH normal; Mild elevation of free T4 - will need repeat of thyroid function test - thyroglobulin antibody negative - outpatient follow up with ultrasound 5. Alcohol abuse - c/w Folate, Thiamine and Multivitamin - alcohol withdrawal precautions - Currently on serax 15mg PO q8h; will begin to taper today 6. HTN - BP well controlled - c/w lisinopril and amlodipine with holding parameters 7. COPD - c/w duoneb breathing treatments 8. Insomnia - c/w mirtazapine PRN 9. Back pain - c/w ultram 10. Anxiety - c/w celeza and atenolol 11. BPH - c/w tamsulosin and finasteride 12. DLP - c/w lipitor 13. Swallowing difficulty - c/w aspiration precautions 14. CAD - s/p CABG - c/w ASA, Atenolol, Lipitor and Lisinopril 15. DVT prophylaxis - c/w Lovenox VS,Fishbone, I+O VS, Fishbone, I+O Laboratory Tests 07/13/16 12:19 Anion Gap 12 07/13/16 16:04 Anion Gap 12 07/13/16 20:00 Anion Gap 10 07/14/16 06:03 Calcium Level 8.4 L, Aspartate Amino Transf (AST/SGOT) 24, Alanine Aminotransferase (ALT/SGPT) 16, Alkaline Phosphatase 128 H, Total Bilirubin 0.2 #, Total Protein 6.7, Albumin 3.1 L 07/14/16 06:05 Red Blood Count 3.79 L, Mean Corpuscular Volume 85.0, Mean Corpuscular Hemoglobin 28.1, Mean Corpuscular Hemoglobin Concent 33.1, Red Cell Distribution Width 15.0 H, Neutrophils (%) (Auto) 77.1 H, Lymphocytes (%) (Auto ) 14.1 L, Monocytes (%) (Auto) 6.1 H, Eosinophils (%) (Auto) 0.5, Basophils (%) (Auto) 0.0, Neutrophils # (Auto) 6.8, Lymphocytes # (Auto) 1.2 L, Monocytes # ( Auto) 0.5, Eosinophils # (Auto) 0.0, Basophils # (Auto) 0.0 Vital Signs Date Time Temp Pulse Resp B/P Pulse Ox O2 Delivery O2 Flow Rate FiO2 07/14/16 11:00 65 130/72 07/14/16 08:54 20 Nasal Cannula 2.0 07/14/16 08:00 97.5 97 I&O- Last 24 Hours up to 6 AM 07/14/16 05:59 Intake Total 1143.25 ml Output Total 2725 ml Balance -1581.75 ml PIA PATEL MD Jul 14, 2016 12:06
[2016-07-14] MEDS: FERROUS SULFATE 325MG TAB PO SCH ×2 (13:19→21:14)
[2016-07-14] MEDS: OXAZEPAM 10 MG CAP PO SCH ×2 (13:19→21:14)
[2016-07-14] MEDS ORDERED: ACETAMINOPHEN TAB 650MG DOSE (2X325MG) PO PRN (16:00)
--- NOTE | 2016-07-14 17:06 | ECHO ---
DATE OF SERVICE: 07/13/2016 REFERRING PROVIDER: Dr. Rosi Cummings PATIENT LOCATION: Room 3229 REASON FOR ECHOCARDIOGRAM: Shortness of breath. 2D MEASUREMENTS: IVS: 1.2 cm LV: 4.9 cm LVPW: 1.0 cm LA: 4.3 cm Aorta: 3.7 cm IVC: 2.2 cm DOPPLER MEASUREMENTS: Peak velocity across the aortic valve: 1.9 m/s Peak velocity across the LVOT: 1.0 m/s Mitral E: 1.0 Mitral A: 0.87 with a ratio of 1.2 Maximum tricuspid valve velocity: 2.5 m/s 2D COMMENTS: 1. Normal left ventricular size, wall thickness and normal global left ventricular systolic function. Left ventricular systolic ejection fraction is estimated at 65-70%. 2. The left atrium appeared to be mildly enlarged. Normal right atrium and right ventricle. 3. The atrial septum appeared to be normal without evidence of defect or shunt. 4. Borderline enlarged aortic root at 3.7 cm 5. Small pericardial effusion noted mainly posteriorly, no evidence of cardiac tamponade. 6. Mildly calcified aortic valve with normal leaflet excursion. Mildly calcified mitral annulus with normal anterior mitral leaflet motion. Normal tricuspid valve and pulmonic valve. The proximal pulmonary artery branches appear to be normal in limited views. 7. The inferior vena cava was mildly enlarged, central venous pressure is probably elevated. IMPRESSION: 1. Normal global left ventricular systolic function. Not mentioned above, there was abnormal relaxation noted across the mitral valve annulus consistent with a pseudo-pneumo pattern, left ventricle and diastolic pressure might be elevated. 2. Aortic valve sclerosis with trivial aortic stenosis but no aortic regurgitation. 3. Mitral annulus calcification with mildly enlarged left atrium and mild mitral regurgitation. The dilated left atrium is probably related to underlying left ventricular diastolic dysfunction because there was no significant mitral regurgitation. 4. Mild tricuspid regurgitation with mild pulmonary hypertension. 5. There are some features of elevated central venous pressure. 6. Small pericardial effusion note, no evidence of cardiac tamponade.
[2016-07-14] MEDS: MIRTAZAPINE 15 MG TAB PO PRN (21:14)
--- NOTE | 2016-07-14 21:41 | IPN ---
DATE: 07/14/2016 SUBJECTIVE: The patient was seen and examined at the bedside today in the morning. He was sitting on the sofa. He is slightly sleepy today because of the medications that he is being given for alcohol withdrawal, his sodium level improved to 133 today morning. REVIEW OF SYSTEMS: The patient denies any fever, chills, rigors, headache, nausea, vomiting, chest pain, shortness of breath, pain in abdomen, constipation or diarrhea. He reports that he is sleeping because of the medications. All other review of systems is negative. OBJECTIVE: VITAL SIGNS: Temperature is 97 degrees Fahrenheit, blood pressure is 132/65, pulse is 85, respiratory rate of 18, saturating 94% on room air. Intake and output: Urine output is 2.3 liters yesterday, 2.4 liters so far today since overnight. PHYSICAL EXAMINATION: The patient is awake, alert and oriented times three, but slightly sleepy because of the benzodiazepines that he is on. HEAD/NECK: Extraocular muscles intact. Pupils equally round and reactive to light. Neck is supple. There is no jugular venous distention (JVD). CARDIOVASCULAR: S1, S2, regular rate. No murmur, rub or gallop. RESPIRATORY: Chest is clear to auscultation bilaterally. Bilateral equal air entry. No rales or rhonchi. ABDOMEN: Soft. Positive bowel sounds. Nontender. No ascites. No organomegaly. EXTREMITIES: No clubbing or cyanosis. Pulses are 2+. No edema of the bilateral lower extremities. CENTRAL NERVOUS SYSTEM: No focal neurological deficit. Power is 5/5 in all extremities. LAB REVIEW: CBC showed a WBC 8.8, hemoglobin 10.7, platelets are 242. BMP showed sodium 133, potassium 3.8, chloride 93, bicarbonate 31, BUN 9, creatinine is 0.78. Calcium is 8.4. His iron was 34. Transferrin saturation was 8.8%. Ferritin was 31. Albumin is 3.1. IMAGING: Ultrasound of the liver was done which showed a status post cholecystectomy. No significant biliary dilatation. Multiple calcified granulomas in the liver with heterogeneous echotexture. CURRENT MEDICATIONS: The patient's medications were all reviewed by me. He has been started on amlodipine 5 mg by mouth daily. Lisinopril was stopped yesterday. His oxazepam dose has been decreased to 10 mg every 8 hourly. There is no other change in the medications at this time. ASSESSMENT: 81-year-old male with past medical history of hypertension, coronary artery disease, COPD, history of alcohol abuse admitted this time with symptomatic hyponatremia. PLAN: 1. Hypotonic Hyponatremia: The patient is responding well with current dose of IV Lasix 20 mg twice a day. His sodium level has improved to 133. Continue the current dose of Lasix at this time. If patient's sodium level improves to above 135 by tomorrow then Lasix will be stopped and he will be put on fluid restriction. 2. Hypertension. The patient's angiotensin-converting enzyme (ANNA) inhibitors were stopped because of hyponatremia. He has been started on amlodipine 10 mg by mouth daily. He continues to be on atenolol. Blood pressure is in acceptable range at this time. The patient should not restart his ANNA inhibitors because of the risk of recurrent hyponatremia. 3. Congestive heart failure with diastolic dysfunction. The patient had elevated central venous pressures on echocardiogram. Continue current dose of Lasix 20 mg IV twice a day. The dose will be adjusted tomorrow morning. Plan of care was discussed with the hospitalist, Dr. Topher Garvin. [facility]
--- NOTE | 2016-07-15 00:05 | EDDOCDS ---
Nurse's Notes [facility] Name: Clint Gresham Age: 81 yrs Sex: Male : 1935 Arrival Date: 07/12/2016 Time: 14:28 Bed 7 Private MD: [facility] Christine Diagnosis: Hypo-osmolality and hyponatremia;Alcohol abuse counseling and surveillance;Alcohol abuse;Chronic obstructive pulmonary disease with (acute) exacerbation Presentation: 07/12 15:02 Presenting complaint: Patient states: he is here because he drank too much beer and kcs needs something to calm him down. Mental Health Triage Level: Level 1- Pt displays no suicidal or homicidal ideations and does not appear to be a danger to self or others. Adult Sepsis Screening: The patient does not have new or worsening altered mentation. Patient has a respiratory rate of greater than or equal to 22 (1 point). Systolic blood pressure is less than or equal to 100 (1 point). Patient has a qSOFA score of 2. No known or suspected infection- Negative Sepsis Screen. Suicide/Homicide risk assessment- the patient denies having any suicidal and/or homicidal ideations and does not present with any other emotional, behavioral or mental health complaints. 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 Transition of care: patient was not received from another setting of care. 15:02 Acuity: NADJA Level 3 kcs 15:02 Method Of Arrival: Wheelchair kcs Triage Assessment: 15:05 General: Appears comfortable, slender, well developed, well nourished, Behavior is kcs cooperative, pleasant. Pain: Location: back Pain currently is 10 out of 10 on a pain scale. Neurological: Level of Consciousness is awake, alert. Respiratory: Airway is patent Respiratory effort is even, unlabored, Respiratory pattern is regular, symmetrical. Derm: Skin is intact, is healthy with good turgor, Skin is dry, Skin is normal. Historical: - Allergies: No known drug Allergies; - Home Meds: 1. Aspirin Oral 2. Atenolol Oral Unknown 3. Folic Acid Oral 4. Lisinopril Oral 5. Simvastatin Unknown - PMHx: bowel obstruction; Cancer, Colon; COPD; Hypercholesterolemia; Hypertension; ulcers; - PSHx: Cholecystectomy; back surgery; perforated ulcer; Colon Resection; - Social history: Smoking status: Patient uses tobacco products, heavy tobacco smoker. No barriers to communication noted, The patient speaks fluent Croatian. - Family history: Not pertinent. - : The pt / caregiver states he / she is not on anticoagulants. Home medication list is obtained from [employer] import data. - Exposure Risk Screening:: None identified. Screenin:14 Screening information is obtained from the patient. Fall risk: At risk due to age, js13 apparent chemical impairment. Assistance ADL's: requires no assistance with activities of daily living. Abuse/DV Screen: The patient / caregiver reports he/she is: not in a situation that causes fear, pain or injury. Nutritional screening: No deficits noted. Advance Directives: There is no active DNR order. home support is adequate. Assessment: 17:14 General: Appears in no apparent distress, Behavior is appropriate for age, cooperative. js13 Pain: Denies pain. Neurological: Level of Consciousness is awake, alert. Cardiovascular: Rhythm is sinus rhythm with 1st degree heart block Chest pain is denied. Respiratory: Airway is patent Respiratory effort is even, Respiratory pattern is regular, Breath sounds with rhonchi Breath sounds with wheezes. Derm: Skin is pink, warm & dry. 17:47 General: Appears in no apparent distress, comfortable, to be sleeping. Respiratory: js13 Airway is patent Respiratory effort is even, unlabored, Respiratory pattern is regular, Breath sounds with rhonchi Breath sounds with wheezes. Derm: Skin is pink, warm & dry. 18:19 General: Appears in no apparent distress, comfortable, Behavior is appropriate for age, js13 cooperative. Pain: Denies pain. Neurological: Level of Consciousness is awake, alert. Cardiovascular: Rhythm is sinus rhythm Chest pain is denied. Respiratory: Airway is patent Respiratory effort is even, unlabored, Respiratory pattern is regular, Breath sounds with rhonchi Breath sounds with wheezes. Derm: Skin is pink, warm & dry. 20:00 Reassessment: Patient appears in no apparent distress at this time. Patient denies pain jace at this time. General: Appears in no apparent distress, Behavior is appropriate for age, cooperative. Neurological: No deficits noted. Cardiovascular: Rhythm is sinus rhythm. Respiratory: Airway is patent Respiratory effort is even, unlabored, Respiratory pattern is regular, Breath sounds with rhonchi bilaterally. GI: Abdomen is non- distended. Derm: Skin is pink, warm & dry. 21:00 Reassessment: Patient appears in no apparent distress at this time. General: Appears in jace no apparent distress, Behavior is appropriate for age, cooperative. Neurological: No deficits noted. Cardiovascular: Rhythm is sinus rhythm. Respiratory: Airway is patent Respiratory effort is even, unlabored. GI: Abdomen is non- distended. Derm: Skin is pink, warm & dry. 22:00 Reassessment: Patient appears in no apparent distress at this time. General: Appears jace comfortable, Behavior is appropriate for age, cooperative. Neurological: No deficits noted. Cardiovascular: Rhythm is sinus rhythm. Respiratory: Airway is patent Respiratory effort is even, unlabored, Respiratory pattern is regular. GI: Abdomen is flat, non- distended. Derm: Skin is pink, warm & dry. 22:51 Reassessment: Patient appears in no apparent distress at this time. General: Appears jace comfortable. Pain: Denies pain. Neurological: No deficits noted. Cardiovascular: Rhythm is sinus rhythm. Respiratory: Airway is patent Respiratory effort is even, Respiratory pattern is regular. Derm: Skin is pink, warm & dry. Vital Signs: 14:30 BP 100 / 65 LA Sitting (auto/reg); Pulse 82; Resp 20; Temp 98.7; Pulse Ox 95% ; Weight cmb 66.68 kg; Height 5 ft. 8 in. (172.72 cm); Pain 7/10; 17:35 BP 158 / 70 (auto/); js13 17:35 Pulse 66 MON; Resp 18; Pulse Ox 96% on 2 lpm NC; js13 17:50 BP 172 / 74 (auto/); js13 17:50 Pulse 70 MON; Resp 18; Pulse Ox 96% on 2 lpm NC; js13 18:05 BP 158 / 70 (auto/); js13 18:05 Pulse 70 MON; Resp 20; Pulse Ox 96% on 2 lpm NC; js13 18:49 Pulse 70 MON; Resp 22 S; Pulse Ox 88% on 2 lpm NC; jace 18:50 BP 168 / 67 (auto/); jace 19:04 Pulse 68 MON; Resp 18 S; Pulse Ox 88% on 2 lpm NC; jace 19:05 BP 174 / 82 (auto/); jace 19:19 Pulse 90 MON; Resp 20; Pulse Ox 94% 2 lpm ; jace 19:20 BP 178 / 81 (auto/); jace 19:34 Pulse 74 MON; Resp 16 S; Pulse Ox 93% on 2 lpm NC; jace 19:35 BP 176 / 80 (auto/); jace 19:49 Pulse 78 MON; Resp 20 S; Pulse Ox 93% on 2 lpm NC; jace 19:50 BP 168 / 76 (auto/); jace 20:04 Pulse 76 MON; Resp 22 S; Pulse Ox 97% on 2 lpm NC; jace 20:05 BP 197 / 88 (auto/); jace 20:19 Pulse 70 MON; Resp 20 S; Pulse Ox 95% on 2 lpm NC; ajce 20:20 BP 175 / 66 (auto/); jace 20:34 Pulse 68 MON; Resp 18 S; Pulse Ox 98% on 2 lpm NC; jace 20:35 BP 176 / 80 (auto/); jace 22:05 BP 167 / 75; Pulse 84 MON; Resp 22; Pulse Ox 97% on 2 lpm NC; jace 14:30 Body Mass Index 22.35 (66.68 kg, 172.72 cm) cmb Vitals: 14:30 Log In Time: July 12, 2016 at 14:27. cmb ED Course: 14:28 Patient visited by Angelina Garcia. cmb 14:28 Patient moved to Waiting cmb 14:30 [facility], Christine is Private Physician. cmb 14:35 Patient moved to Pre RCE cmb 15:04 Triage Initiated kcs 15:46 Patient moved to Triage 3 ar3 16:21 Tete Jackman,RN is Primary Nurse. mb9 16:21 Patient moved to 7 mb9 16:36 Kristyn Valdivia MD is Attending Physician. ml 16:36 Patient visited by Kristyn Valdivia MD. ml 17:00 Inserted saline lock:. jace 17:07 LIPASE Sent. js13 17:07 AMYLASE Sent. js13 17:07 Acetaminophen Level Sent. js13 17:07 Basic Metabolic Profile Sent. js13 17:07 Complete Blood Count Sent. js13 17:07 Ethyl Alcohol (ethanol) Sent. js13 17:08 Liver Profile Sent. js13 17:08 Salicylate Level Sent. js13 17:08 Thyroid Stimulating Hormone Sent. js13 17:10 EKG done. (by ED staff). Reviewed by Kristyn Valdivia MD. dem1 17:14 The patient / caregiver is instructed regarding the plan of care and ED course. Placed js13 in gown. Bed in low position. Call light in reach. Side rails up X2. groundwater monitoring technician on. Pulse ox on. NIBP on. 17:16 Patient visited by Tete Jackman,JT. js13 17:16 Patient visited by Shan De La Torre. dem1 17:48 Patient visited by Tete Jackman,JT. js13 18:16 Osmolality, Serum Sent. js13 18:16 TSH with Free T4 Sent. js13 18:20 Patient visited by Tete Jackman,JT. js13 18:44 Osmolality,Urine Sent. js13 18:44 Urine Random,Creatinine Sent. js13 18:44 Urine Random,Sodium Sent. js13 18:44 Drug Eval Toxicology ED Only Sent. js13 18:58 Luci Alvarado,RN is Primary Nurse. jace 19:19 Rosi Cummings audio visual equipment rental clerk. ys2 19:26 Patient visited by Kiera García PCA. ashlee 19:41 Primary Nurse role handed off by Tete Jackman RN ashlee 19:44 Rosi Cummings is Hospitalizing Provider. ml 20:[address] [facility] Payment Agreement was scanned into [employer] and attached to record. gjb 21:33 Chest, 1 View Returned. EDMS 22:02 No procedures done that require assistance. jace 07/13 12:41 T-Sheet-- Draft Copy was scanned into [employer] and attached to record. gb 12:41 Radiology Report was scanned into [employer] and attached to record. gb Administered Medications: 07/12 17:07 Drug: Albuterol 5 mg [albuterol sulfate 2.5 mg/0.5 mL solution for nebulization (1 mL)] sd7 Route: Nebulizer; 17:18 Follow up: Response: Nebulizer completed 17:07 Drug: Albuterol-Ipratropium 3 ml [ipratropium-albuterol 0.5 mg-3 mg(2.5 mg base)/3 mL sd7 nebulization soln (3 mL)] Route: Inhalation; 17:18 Follow up: Response: Nebulizer completed 17:14 Drug: Solu-MEDROL 125 mg [Solu-Medrol 500 mg intravenous solution (125 mg)] Route: IVP; js13 Site: left antecubital; 18:16 Drug: NS 0.9% 1000 ml [sodium chloride 0.9 % intravenous solution] Route: IV; Rate: 100 js13 mL/hr; Site: left antecubital; 21:00 Follow up: IV Status: Infusion discontinued jace 18:44 Drug: Oxazepam 20 mg [oxazepam 10 mg capsule (2 caps)] Route: PO; js13 20:48 Drug: Furosemide 40 mg [furosemide 10 mg/mL injection solution (4 mL)] Route: IVP; jace Site: left antecubital; Intake: 21:00 IV: 300.00ml; Total: 300.00ml. jace Output: 21:00 Urine: 300.00ml (Voided); Total: 300.00ml. jace 22:05 Urine: 650.00ml (Voided); Total: 950.00ml. jace RT: 17:12 Initial Med Neb Given as ordered Patient was instructed and evaluated on procedure sd7 Patient tolerated procedure well without adverse effect. Respiratory: Breath sounds with rhonchi bilaterally. Breath sounds with wheezes bilaterally. at expiration. Order Results: Lab Order: Acetaminophen Level; SPEC'M 07/12/16 17:04 Test: ACETAMINOPHEN LEVEL; Value: < 2.0; Range: 10.0-30.0; Abnormal: Below low normal; Units: UG/ML; Status: F Lab Order: Basic Metabolic Profile; SPEC'M 07/12/16 17:04 Test: GLUCOSE, FASTING; Value: 99; Range: 83-110; Units: MG/DL; Status: F Test: BLOOD UREA NITROGEN; Value: 4; Range: 7-18; Abnormal: Below low normal; Units: MG/DL; Status: F Test: CREATININE FOR GFR; Value: 0.70; Range: 0.70-1.30; Units: MG/DL; Status: F Test: GLOMERULAR FILTRATION RATE; Value: > 60.0; Range: >35; Status: F Test: SODIUM LEVEL; Value: 117; Range: 136-145; Abnormal: Critical Low; Units: MEQ/L; Status: F Test: POTASSIUM SERUM; Value: 3.7; Range: 3.5-5.1; Units: MEQ/L; Status: F Test: CHLORIDE LEVEL; Value: 80; Range: 98-107; Abnormal: Below low normal; Units: MEQ/L; Status: F Test: CARBON DIOXIDE LEVEL; Value: 23; Range: 21-32; Units: MEQ/L; Status: F Test: ANION GAP; Value: 14; Range: 8-16; Units: MEQ/L; Status: F Test: CALCIUM LEVEL; Value: 8.2; Range: 8.8-10.2; Abnormal: Below low normal; Units: MG/DL; Status: F Test Note: ; Units are mL/min/1.73 m2 Chronic Kidney Disease Staging per NKF: Stage I & II GFR >=60 Normal to Mildly Decreased Stage III GFR 30-59 Moderately Decreased Stage IV GFR 15-29 Severely Decreased Stage V GFR <15 Very Little GFR Left ESRD GFR <15 on GOVERNMENT AUDITOR Lab Order: Complete Blood Count; SPEC'M 07/12/16 17:04 Test: WHITE BLOOD COUNT; Value: 10.0; Range: 4.0-10.0; Units: K/mm3; Status: F Test: RED BLOOD COUNT; Value: 3.63; Range: 4.30-6.10; Abnormal: Below low normal; Units: M/mm3; Status: F Test: HEMOGLOBIN; Value: 10.6; Range: 14.0-18.0; Abnormal: Below low normal; Units: g/dl; Status: F Test: HEMATOCRIT; Value: 29.8; Range: 42.0-52.0; Abnormal: Below low normal; Units: %; Status: F Test: MEAN CORPUSCULAR VOLUME; Value: 82.1; Range: 80.0-96.0; Units: fl; Status: F Test: MEAN CORPUSCULAR HEMOGLOBIN; Value: 29.3; Range: 27.0-33.0; Units: pg; Status: F Test: MEAN CORPUSCULAR HGB CONC; Value: 35.6; Range: 32.0-36.5; Units: g/dl; Status: F Test: RED CELL DISTRIBUTION WIDTH; Value: 14.6; Range: 11.5-14.5; Abnormal: Above high normal; Units: %; Status: F Test: PLATELET COUNT, AUTOMATED; Value: 245; Range: 150-450; Units: k/mm3; Status: F Lab Order: Drug Eval Toxicology ED Only; SPEC'M 07/12/16 18:45 Test: AMPHETAMINES LEVEL URINE; Value: NEGATIVE; Range: NEGATIVE; Status: F Test: BARBITURATES URINE; Value: NEGATIVE; Range: NEGATIVE; Status: F Test: BENZODIAZEPINES URINE; Value: NEGATIVE; Range: NEGATIVE; Status: F Test: CANNABINOIDS URINE; Value: NEGATIVE; Range: NEGATIVE; Status: F Test: COCAINE METABOLITE URINE; Value: NEGATIVE; Range: NEGATIVE; Status: F Test: METHADONE URINE; Value: NEGATIVE; Range: NEGATIVE; Status: F Test: OPIATES URINE; Value: NEGATIVE; Range: NEGATIVE; Status: F Test: TRICYCLIC ANTIDEPRESS URINE; Value: NEGATIVE; Range: NEGATIVE; Status: F Test Note: ; ALL PRESUMPTIVE POSITIVE FINDINGS ARE UNCONFIRMED NORMAL VALUES THRESHOLD IN NG/ML AMPHETAMINES 1000 METHAMPHETAMINES 1000 BARBITURATES 300 BENZODIAZEPINES 300 CANNABINOIDS (THC) 50 COCAINE METABOLITE 300 METHADONE 300 OPIATES 300 PHENCYCLIDINE 25 TRICYCLIC ANTIDEPRESSANTS 1000 RESULTS ARE FOR MEDICAL PURPOSES ONLY. ALL URINE SPECIMENS WILL BE SAVED FOR 3 DAYS. IF CONFIRMATION OF A PRESUMPTIVE POSTIVE SCREEN RESULT IS DESIRED, CALL CHEMISTRY ([phone]) AND REQUEST URINE TO BE SENT TO REFERENCE LAB. FOR A LIST OF CLOSELY RELATED COMPOUNDS PLEASE CALL THE LAB. Lab Order: Ethyl Alcohol (ethanol); SPEC'M 07/12/16 17:04 Test: ETHYL ALCOHOL (ETHANOL); Value: 0.016; Range: 0.000-0.010; Abnormal: Above high normal; Units: %; Status: F Lab Order: Liver Profile; SPEC'M 07/12/16 17:04 Test: AST/SGOT; Value: 17; Range: 15-37; Units: U/L; Status: F Test: ALT/SGPT; Value: 16; Range: 12-78; Units: U/L; Status: F Test: ALKALINE PHOSPHATASE; Value: 135; Range: 45-117; Abnormal: Above high normal; Units: U/L; Status: F Test: BILIRUBIN,TOTAL; Value: 0.6; Range: 0.2-1.0; Units: MG/DL; Status: F Test: BILIRUBIN,DIRECT; Value: 0.2; Range: 0.0-0.2; Units: MG/DL; Status: F Test: TOTAL PROTEIN; Value: 6.8; Range: 6.4-8.2; Units: GM/DL; Status: F Test: ALBUMIN; Value: 3.2; Range: 3.2-5.2; Units: GM/DL; Status: F Test: ALBUMIN/GLOBULIN RATIO; Value: 0.89; Range: 1.00-1.93; Abnormal: Below low normal; Status: F Lab Order: Salicylate Level; [facility] 07/12/16 17:04 Test: SALICYLATE LEVEL; Value: < 1.7; Range: 5.0-30.0; Abnormal: Below low normal; Units: MG/DL; Status: F Lab Order: Thyroid Stimulating Hormone; 07/12/16 17:04 Test: THYROID STIMULATING HORMONE; Value: 2.000; Range: 0.358-3.740; Units: uIU/ML; Status: F Lab Order: AMYLASE; 07/12/16 17:04 Test: AMYLASE; Value: 20; Range: 25-115; Abnormal: Below low normal; Units: U/L; Status: F Lab Order: LIPASE; 07/12/16 17:04 Test: LIPASE; Value: 96; Range: 73-393; Units: U/L; Status: F Lab Order: Urine Random,Sodium; 07/12/16 18:45 Test: SODIUM,RANDOM URINE; Value: 36; Units: MEQ/L; Status: F Lab Order: Osmolality, Serum; 07/12/16 18:14 Test: OSMOLALITY SERUM; Value: 239; Range: 280-301; Abnormal: Below low normal; Units: MOSM/KG; Status: F Lab Order: Osmolality,Urine; 07/12/16 18:45 Test: OSMOLALITY URINE; Value: 354; Range: 500-800; Abnormal: Below low normal; Units: MOSM/KG; Status: F Lab Order: TSH with Free T4; 07/12/16 18:14 Test: THYROID STIMULATING HORMONE; Value: 1.990; Range: 0.358-3.740; Units: uIU/ML; Status: F Test: FREE T4; Value: 1.52; Range: 0.76-1.46; Abnormal: Above high normal; Units: NG/DL; Status: F Lab Order: Urine Random,Creatinine; [facility] 07/12/16 18:45 Test: CREATININE,RANDOM URINE; Value: 79.4; Units: MG/DL; Status: F Lab Order: RENAL PROFILE; SPEC'M 07/12/16 20:49 Test: GLUCOSE, FASTING; Value: 130; Range: 83-110; Abnormal: Above high normal; Units: MG/DL; Status: F Test: BLOOD UREA NITROGEN; Value: 6; Range: 7-18; Abnormal: Below low normal; Units: MG/DL; Status: F Test: CREATININE FOR GFR; Value: 0.63; Range: 0.70-1.30; Abnormal: Below low normal; Units: MG/DL; Status: F Test: GLOMERULAR FILTRATION RATE; Value: > 60.0; Range: >35; Status: F Test: SODIUM LEVEL; Value: 117; Range: 136-145; Abnormal: Critical Low; Units: MEQ/L; Status: F Test: POTASSIUM SERUM; Value: 3.8; Range: 3.5-5.1; Units: MEQ/L; Status: F Test: CHLORIDE LEVEL; Value: 82; Range: 98-107; Abnormal: Below low normal; Units: MEQ/L; Status: F Test: CARBON DIOXIDE LEVEL; Value: 23; Range: 21-32; Units: MEQ/L; Status: F Test: ANION GAP; Value: 12; Range: 8-16; Units: MEQ/L; Status: F Test: CALCIUM LEVEL; Value: 8.0; Range: 8.8-10.2; Abnormal: Below low normal; Units: MG/DL; Status: F Test: PHOSPHORUS LEVEL; Value: 2.5; Range: 2.5-4.9; Units: MG/DL; Status: F Test: ALBUMIN; Value: 3.0; Range: 3.2-5.2; Abnormal: Below low normal; Units: GM/DL; Status: F Test Note: ; Units are mL/min/1.73 m2 Chronic Kidney Disease Staging per NKF: Stage I & II GFR >=60 Normal to Mildly Decreased Stage III GFR 30-59 Moderately Decreased Stage IV GFR 15-29 Severely Decreased Stage V GFR <15 Very Little GFR Left ESRD GFR <15 on GOVERNMENT AUDITOR Lab Order: BRAIN NATIURETIC PEPTIDE; SPEC'M 01/03/17 20:49 Test: BRAIN NATRIURETIC PEPTIDE; Value: 405; Range: <100; Abnormal: Above high normal; Units: PG/ML; Status: F Lab Order: AMMONIA; SPEC'M 07/12/16 20:49 Test: AMMONIA; Value: < 25; Range: <32; Units: uMOL/L; Status: F Lab Order: PROTHROMBIN TIME PROFILE\E\INR; SPEC'M 07/12/16 17:04 Test: PROTHROMBIN TIME; Value: 13.8; Range: 12.3-14.5; Units: SECONDS; Status: F Test: INR; Value: 1.05; Status: F Test Note: ; THERAPUTIC HUMAN INR VALUES INDICATIONS NORMAL RANGES PROPHYLAXIS/TREATMENT OF: VENOUS THROMBOSIS 2.0-3.0 PULMONARY EMBOLISM 2.0-3.0 PREVENTION OF SYSTEMIC EMBOLISM FROM: TISSUE HEART VALVES 2.0-3.0 ACUTE MYOCARDIAL INFARCTION 2.0-3.0 VALVULAR HEART DISEASE 2.0-3.0 ATRIAL FIBRILLATION 2.0-3.0 MECHANICAL VALVES(HIGH RISK) 2.5-3.5 RECURRENT MYOCARDIAL INFARCTION 2.5-3.5 Radiology Order: Chest, 1 View Test: Chest, 1 View REASON FOR EXAMINATION: sob; CHEST, ONE VIEW:; ; HISTORY: Shortness of breath.; ; COMPARISON: 05/02/2016; ; Calcified granuloma are present in the lungs. An increase in interstitial; markings is present in the lungs. Linear densities are present in the left lower; lobe consistent with scarring. The heart is normal in size. The pulmonary; vasculature is normal in appearance.; ; IMPRESSION:; 1. Old granulomatous disease.; 2. COPD.; 3. Left lower lobe scarring.; ; ; ; Unreviewed; Outcome: 19:45 Decision to Hospitalize by Provider. 22:02 Ultrasound Study completed. jace 22:02 Condition: good. jace 22:03 Discharge Assessment: patient administered narcotics -. jace 22:52 The following High Risk Discharge criteria are identified: Yes, Admitted to PCU jace accompanied by nurse, accompanied by tech, via stretcher, with oxygen, on monitor, with chart. Property :Personal belongings accompany Pt. 23:04 Patient left the ED. jul Signatures: Dispatcher [employer] EDMS Kristyn Valdivia MD MD ml Sleeman, Kacey, RN RN Mony England RN RN lay Alvarado,Luci,RN RN jace Arreola, Massiel, Reg Reg gb Liz, Rae, METALLURGICAL LAB TECHNICIAN METALLURGICAL LAB TECHNICIAN ar3 Ricky, Kiera, METALLURGICAL LAB TECHNICIAN METALLURGICAL LAB TECHNICIAN ashlee Wil, Hodania dem1 Gasper,Tete,RN RN js13 Angelina Garcia cmb Kwan,Brandy,RT RT sd7 Corby Leal,RN RN [id number] Kayley Alves, Aranda ys2 Chart Complete MTDD
--- NOTE | 2016-07-15 00:05 | EDDOCDS ---
Physician Documentation [facility] Name: Clint Gresham Age: 81 yrs Sex: Male : 1935 Arrival Date: 07/12/2016 Time: 14:28 Bed 7 Private MD: [facility] Disposition: 07/12 21:15 Critical Care:. ml Disposition: 07/12/16 19:45 Hospitalization ordered by Rosi Cummings for Inpatient Admission. Preliminary diagnosis are Hypo-osmolality and hyponatremia, Alcohol abuse counseling and surveillance, Alcohol abuse, Chronic obstructive pulmonary disease with (acute) exacerbation. - Bed requested for PCU. - Status is Inpatient Admission. jul - Condition is Stable. - Problem is new. - Symptoms are unchanged. Historical: - Allergies: No known drug Allergies; - Home Meds: 1. Aspirin Oral 2. Atenolol Oral Unknown 3. Folic Acid Oral 4. Lisinopril Oral 5. Simvastatin Unknown - PMHx: bowel obstruction; Cancer, Colon; COPD; Hypercholesterolemia; Hypertension; ulcers; - PSHx: Cholecystectomy; back surgery; perforated ulcer; Colon Resection; - Social history: Smoking status: Patient uses tobacco products, heavy tobacco smoker. No barriers to communication noted, The patient speaks fluent Divehi. - Family history: Not pertinent. - : The pt / caregiver states he / she is not on anticoagulants. Home medication list is obtained from [employer] import data. - Exposure Risk Screening:: None identified. Vital Signs: 14:30 BP 100 / 65 LA Sitting (auto/reg); Pulse 82; Resp 20; Temp 98.7; Pulse Ox 95% ; Weight cmb 66.68 kg / 147 lbs; Height 5 ft. 8 in. (172.72 cm); Pain 7/10; 17:35 BP 158 / 70 (auto/); js13 17:35 Pulse 66 MON; Resp 18; Pulse Ox 96% on 2 lpm NC; js13 17:50 BP 172 / 74 (auto/); js13 17:50 Pulse 70 MON; Resp 18; Pulse Ox 96% on 2 lpm NC; js13 18:05 BP 158 / 70 (auto/); js13 18:05 Pulse 70 MON; Resp 20; Pulse Ox 96% on 2 lpm NC; js13 18:49 Pulse 70 MON; Resp 22 S; Pulse Ox 88% on 2 lpm NC; jace 18:50 BP 168 / 67 (auto/); jace 19:04 Pulse 68 MON; Resp 18 S; Pulse Ox 88% on 2 lpm NC; jace 19:05 BP 174 / 82 (auto/); jace 19:19 Pulse 90 MON; Resp 20; Pulse Ox 94% 2 lpm ; jace 19:20 BP 178 / 81 (auto/); jace 19:34 Pulse 74 MON; Resp 16 S; Pulse Ox 93% on 2 lpm NC; jace 19:35 BP 176 / 80 (auto/); jace 19:49 Pulse 78 MON; Resp 20 S; Pulse Ox 93% on 2 lpm NC; jace 19:50 BP 168 / 76 (auto/); jace 20:04 Pulse 76 MON; Resp 22 S; Pulse Ox 97% on 2 lpm NC; jace 20:05 BP 197 / 88 (auto/); jace 20:19 Pulse 70 MON; Resp 20 S; Pulse Ox 95% on 2 lpm NC; jace 20:20 BP 175 / 66 (auto/); jace 20:34 Pulse 68 MON; Resp 18 S; Pulse Ox 98% on 2 lpm NC; jace 20:35 BP 176 / 80 (auto/); jace 22:05 BP 167 / 75; Pulse 84 MON; Resp 22; Pulse Ox 97% on 2 lpm NC; jace 14:30 Body Mass Index 22.35 (66.68 kg, 172.72 cm) cmb MDM: 16:45 IV Saline Lock ordered. ml 16:45 Consult PFS/PSA/It Security Administrator ordered. ml 16:45 Consult PFS/PSA/It Security Administrator: Patient's case requires discussion with on-call ml Psychiatrist ordered. 16:45 PSA/PFS to call Nursing Brewery Cellar Worker, to enter patient data on [place] if patient ml involuntarily admitted or transferred for SI or HI ordered. 16:45 Fleet Sales Associate/Pulse Ox/q 15 min VS ordered. ml 16:45 Confirm accurate psychiatric medication list and times of last dosage ordered. ml 16:45 Detain Pt Until Medically/PFS Cleared ordered. ml 16:45 Rhythm Strip to chart ordered. ml 16:45 Albuterol 5 mg Nebulizer once ordered. ml 16:45 Albuterol-Ipratropium 3 ml Inhalation once ordered. ml 16:45 Call Respiratory ordered. ml 16:45 Solu-MEDROL 125 mg IVP once ordered. ml 16:46 Acetaminophen Level Ordered. EDMS 16:46 Basic Metabolic Profile Ordered. EDMS 16:46 Complete Blood Count Ordered. EDMS 16:46 Drug Eval Toxicology ED Only Ordered. EDMS 16:46 Ethyl Alcohol (ethanol) Ordered. EDMS 16:46 Liver Profile Ordered. EDMS 16:46 Salicylate Level Ordered. EDMS 16:46 Thyroid Stimulating Hormone Ordered. EDMS 16:47 Chest, 1 View Ordered. EDMS 16:47 ECG WITH READING ER PHYS+CARDIAG ordered. EDMS 16:47 Call Respiratory complete. js13 16:55 AMYLASE Ordered. EDMS 16:55 LIPASE Ordered. EDMS 18:06 Complete Blood Count Reviewed. ml 18:06 NS 0.9% 1000 ml IV at 100 mL/hr continuous ordered. ml 18:07 BED REQUEST+ADM ordered. EDMS 18:07 Urine Random,Sodium Ordered. EDMS 18:07 Osmolality, Serum Ordered. EDMS 18:07 Osmolality,Urine Ordered. EDMS 18:07 TSH with Free T4 Ordered. EDMS 18:07 Urine Random,Creatinine Ordered. EDMS 18:21 Acetaminophen Level Reviewed. ml 18:21 Basic Metabolic Profile Reviewed. ml 18:21 Ethyl Alcohol (ethanol) Reviewed. ml 18:21 Liver Profile Reviewed. ml 18:21 Salicylate Level Reviewed. ml 18:21 AMYLASE Reviewed. ml 18:21 Thyroid Stimulating Hormone Reviewed. ml 18:21 LIPASE Reviewed. ml 18:22 Oxazepam 20 mg PO once ordered. ml 18:48 BED REQUEST+ADM ordered. EDMS 19:31 Financial registration complete. gjb 19:43 Admission / Observation Status ordered. EDMS 20:14 Furosemide 40 mg IVP once ordered. ss12 20:18 LOW FAT LOW CHOLESTEROL DIET ordered. EDMS 20:19 [facility] [place] Payment Agreement was scanned into [employer] and attached to record. gjb 20:19 PHYSICAL THERAPY EVAL & TREAT ordered. EDMS 20:22 RENAL PROFILE Ordered. EDMS 20:23 CBC WITH DIFFERENTIAL Ordered. EDMS 20:23 RENAL PROFILE Ordered. EDMS 20:23 RENAL PROFILE Ordered. EDMS 20:23 RENAL PROFILE Ordered. EDMS 20:23 RENAL PROFILE Ordered. EDMS 20:23 RENAL PROFILE Ordered. EDMS 20:25 Admission / Observation Status ordered. EDMS 20:25 Attending Doctor Change: ordered. EDMS 20:25 BRAIN NATIURETIC PEPTIDE Ordered. EDMS 20:25 AMMONIA Ordered. EDMS 20:33 CORTISOL AM Ordered. EDMS 20:39 ANTI-DIURETIC HORMONE Ordered. EDMS 20:49 THYROGLOBULIN ANTIBODIES Ordered. EDMS 20:56 RENAL PROFILE Ordered. EDMS 21:10 LIVER US Ordered. EDMS 21:11 PROTHROMBIN TIME PROFILE\E\INR Ordered. EDMS 21:45 ECHOCARD,DOPPLER/COLOR FLOW ordered. EDMS 07/13 12:41 T-Sheet-- Draft Copy was scanned into [employer] and attached to record. gb 12:41 Radiology Report was scanned into [employer] and attached to record. gb Administered Medications: 07/12 17:07 Drug: Albuterol 5 mg [albuterol sulfate 2.5 mg/0.5 mL solution for nebulization (1 mL)] sd7 Route: Nebulizer; 17:18 Follow up: Response: Nebulizer completed sd7 17:07 Drug: Albuterol-Ipratropium 3 ml [ipratropium-albuterol 0.5 mg-3 mg(2.5 mg base)/3 mL sd7 nebulization soln (3 mL)] Route: Inhalation; 17:18 Follow up: Response: Nebulizer completed sd7 17:14 Drug: Solu-MEDROL 125 mg [Solu-Medrol 500 mg intravenous solution (125 mg)] Route: IVP; js13 Site: left antecubital; 18:16 Drug: NS 0.9% 1000 ml [sodium chloride 0.9 % intravenous solution] Route: IV; Rate: 100 js13 mL/hr; Site: left antecubital; 21:00 Follow up: IV Status: Infusion discontinued jace 18:44 Drug: Oxazepam 20 mg [oxazepam 10 mg capsule (2 caps)] Route: PO; js13 20:48 Drug: Furosemide 40 mg [furosemide 10 mg/mL injection solution (4 mL)] Route: IVP; jace Site: left antecubital; Critical Care Time: 21:15 Critical care time: Bedside Care: 120 minutes, Consultation: 10 minutes. Total time: ml 130 minutes Signatures: Dispatcher [employer] EDMS Kristyn Valdivia MD MD ml Sleeman, Kacey, RN RN kcs Newman, Jill New, RN RN jan Barnhardt, Gloria, Reg Reg gb Lopresti, Mary-Elizabeth, Work Study Student Unit ml3 Tete Jackman,RN RN js13 Yannick Vitale ss12 Kayley Alves gjb Luci Alvarado RN, cas, Samantha RT sd7 The chart was reviewed and I authenticate all verbal orders and agree with the evaluation and treatment provided.Corrections: (The following items were deleted from the chart) 16:55 16:47 LIPASE+LAB ordered. EDMS EDMS 16:55 16:47 AMYLASE+LAB ordered. EDMS EDMS 20:56 20:23 RENAL PROFILE ordered. EDMS EDMS 21:49 21:48 THYROID PROFILE ordered. EDMS EDMS 21:54 21:49 THYROID BINDING GLOBULIN ordered. EDMS EDMS Attachments: 20:19 [facility] [place] Payment Agreement gjb 07/13 12:41 T-Sheet-- Draft Copy gb Chart Complete MTDD
--- NOTE | 2016-07-15 00:07 | EDDOCDS ---
Physician Documentation [facility] Name: Clint Gresham Age: 81 yrs Sex: Male : 1935 Arrival Date: 07/12/2016 Time: 14:28 Bed 7 Private MD: [facility] Disposition: 07/12 21:15 Critical Care:. ml Disposition: 07/12/16 19:45 Hospitalization ordered by Rosi Cummings for Inpatient Admission. Preliminary diagnosis are Hypo-osmolality and hyponatremia, Alcohol abuse counseling and surveillance, Alcohol abuse, Chronic obstructive pulmonary disease with (acute) exacerbation. - Bed requested for PCU. - Status is Inpatient Admission. jul - Condition is Stable. - Problem is new. - Symptoms are unchanged. Historical: - Allergies: No known drug Allergies; - Home Meds: 1. Aspirin Oral 2. Atenolol Oral Unknown 3. Folic Acid Oral 4. Lisinopril Oral 5. Simvastatin Unknown - PMHx: bowel obstruction; Cancer, Colon; COPD; Hypercholesterolemia; Hypertension; ulcers; - PSHx: Cholecystectomy; back surgery; perforated ulcer; Colon Resection; - Social history: Smoking status: Patient uses tobacco products, heavy tobacco smoker. No barriers to communication noted, The patient speaks fluent Khmer. - Family history: Not pertinent. - : The pt / caregiver states he / she is not on anticoagulants. Home medication list is obtained from [employer] import data. - Exposure Risk Screening:: None identified. Vital Signs: 14:30 BP 100 / 65 LA Sitting (auto/reg); Pulse 82; Resp 20; Temp 98.7; Pulse Ox 95% ; Weight cmb 66.68 kg / 147 lbs; Height 5 ft. 8 in. (172.72 cm); Pain 7/10; 17:35 BP 158 / 70 (auto/); js13 17:35 Pulse 66 MON; Resp 18; Pulse Ox 96% on 2 lpm NC; js13 17:50 BP 172 / 74 (auto/); js13 17:50 Pulse 70 MON; Resp 18; Pulse Ox 96% on 2 lpm NC; js13 18:05 BP 158 / 70 (auto/); js13 18:05 Pulse 70 MON; Resp 20; Pulse Ox 96% on 2 lpm NC; js13 18:49 Pulse 70 MON; Resp 22 S; Pulse Ox 88% on 2 lpm NC; jace 18:50 BP 168 / 67 (auto/); jace 19:04 Pulse 68 MON; Resp 18 S; Pulse Ox 88% on 2 lpm NC; jace 19:05 BP 174 / 82 (auto/); jace 19:19 Pulse 90 MON; Resp 20; Pulse Ox 94% 2 lpm ; jace 19:20 BP 178 / 81 (auto/); jace 19:34 Pulse 74 MON; Resp 16 S; Pulse Ox 93% on 2 lpm NC; jace 19:35 BP 176 / 80 (auto/); jace 19:49 Pulse 78 MON; Resp 20 S; Pulse Ox 93% on 2 lpm NC; jace 19:50 BP 168 / 76 (auto/); jace 20:04 Pulse 76 MON; Resp 22 S; Pulse Ox 97% on 2 lpm NC; jace 20:05 BP 197 / 88 (auto/); jace 20:19 Pulse 70 MON; Resp 20 S; Pulse Ox 95% on 2 lpm NC; jace 20:20 BP 175 / 66 (auto/); jace 20:34 Pulse 68 MON; Resp 18 S; Pulse Ox 98% on 2 lpm NC; jace 20:35 BP 176 / 80 (auto/); jace 22:05 BP 167 / 75; Pulse 84 MON; Resp 22; Pulse Ox 97% on 2 lpm NC; jace 14:30 Body Mass Index 22.35 (66.68 kg, 172.72 cm) cmb MDM: 16:45 IV Saline Lock ordered. ml 16:45 Consult PFS/PSA/Career Discovery Teacher ordered. ml 16:45 Consult PFS/PSA/Career Discovery Teacher: Patient's case requires discussion with on-call ml Psychiatrist ordered. 16:45 PSA/PFS to call Nursing Overhead Foreman, to enter patient data on [place] if patient ml involuntarily admitted or transferred for SI or HI ordered. 16:45 Associate Professor Of Law/Pulse Ox/q 15 min VS ordered. ml 16:45 Confirm accurate psychiatric medication list and times of last dosage ordered. ml 16:45 Detain Pt Until Medically/PFS Cleared ordered. ml 16:45 Rhythm Strip to chart ordered. ml 16:45 Albuterol 5 mg Nebulizer once ordered. ml 16:45 Albuterol-Ipratropium 3 ml Inhalation once ordered. ml 16:45 Call Respiratory ordered. ml 16:45 Solu-MEDROL 125 mg IVP once ordered. ml 16:46 Acetaminophen Level Ordered. EDMS 16:46 Basic Metabolic Profile Ordered. EDMS 16:46 Complete Blood Count Ordered. EDMS 16:46 Drug Eval Toxicology ED Only Ordered. EDMS 16:46 Ethyl Alcohol (ethanol) Ordered. EDMS 16:46 Liver Profile Ordered. EDMS 16:46 Salicylate Level Ordered. EDMS 16:46 Thyroid Stimulating Hormone Ordered. EDMS 16:47 Chest, 1 View Ordered. EDMS 16:47 ECG WITH READING ER PHYS+CARDIAG ordered. EDMS 16:47 Call Respiratory complete. js13 16:55 AMYLASE Ordered. EDMS 16:55 LIPASE Ordered. EDMS 18:06 Complete Blood Count Reviewed. ml 18:06 NS 0.9% 1000 ml IV at 100 mL/hr continuous ordered. ml 18:07 BED REQUEST+ADM ordered. EDMS 18:07 Urine Random,Sodium Ordered. EDMS 18:07 Osmolality, Serum Ordered. EDMS 18:07 Osmolality,Urine Ordered. EDMS 18:07 TSH with Free T4 Ordered. EDMS 18:07 Urine Random,Creatinine Ordered. EDMS 18:21 Acetaminophen Level Reviewed. ml 18:21 Basic Metabolic Profile Reviewed. ml 18:21 Ethyl Alcohol (ethanol) Reviewed. ml 18:21 Liver Profile Reviewed. ml 18:21 Salicylate Level Reviewed. ml 18:21 AMYLASE Reviewed. ml 18:21 Thyroid Stimulating Hormone Reviewed. ml 18:21 LIPASE Reviewed. ml 18:22 Oxazepam 20 mg PO once ordered. ml 18:48 BED REQUEST+ADM ordered. EDMS 19:31 Financial registration complete. gjb 19:43 Admission / Observation Status ordered. EDMS 20:14 Furosemide 40 mg IVP once ordered. ss12 20:18 LOW FAT LOW CHOLESTEROL DIET ordered. EDMS 20:19 [facility] Payment Agreement was scanned into [employer] and attached to record. gjb 20:19 PHYSICAL THERAPY EVAL & TREAT ordered. EDMS 20:22 RENAL PROFILE Ordered. EDMS 20:23 CBC WITH DIFFERENTIAL Ordered. EDMS 20:23 RENAL PROFILE Ordered. EDMS 20:23 RENAL PROFILE Ordered. EDMS 20:23 RENAL PROFILE Ordered. EDMS 20:23 RENAL PROFILE Ordered. EDMS 20:23 RENAL PROFILE Ordered. EDMS 20:25 Admission / Observation Status ordered. EDMS 20:25 Attending Doctor Change: ordered. EDMS 20:25 BRAIN NATIURETIC PEPTIDE Ordered. EDMS 20:25 AMMONIA Ordered. EDMS 20:33 CORTISOL AM Ordered. EDMS 20:39 ANTI-DIURETIC HORMONE Ordered. EDMS 20:49 THYROGLOBULIN ANTIBODIES Ordered. EDMS 20:56 RENAL PROFILE Ordered. EDMS 21:10 LIVER US Ordered. EDMS 21:11 PROTHROMBIN TIME PROFILE\E\INR Ordered. EDMS 21:45 ECHOCARD,DOPPLER/COLOR FLOW ordered. EDMS 07/13 12:41 T-Sheet-- Draft Copy was scanned into [employer] and attached to record. gb 12:41 Radiology Report was scanned into [employer] and attached to record. gb Administered Medications: 07/12 17:07 Drug: Albuterol 5 mg [albuterol sulfate 2.5 mg/0.5 mL solution for nebulization (1 mL)] sd7 Route: Nebulizer; 17:18 Follow up: Response: Nebulizer completed sd7 17:07 Drug: Albuterol-Ipratropium 3 ml [ipratropium-albuterol 0.5 mg-3 mg(2.5 mg base)/3 mL sd7 nebulization soln (3 mL)] Route: Inhalation; 17:18 Follow up: Response: Nebulizer completed sd7 17:14 Drug: Solu-MEDROL 125 mg [Solu-Medrol 500 mg intravenous solution (125 mg)] Route: IVP; js13 Site: left antecubital; 18:16 Drug: NS 0.9% 1000 ml [sodium chloride 0.9 % intravenous solution] Route: IV; Rate: 100 js13 mL/hr; Site: left antecubital; 21:00 Follow up: IV Status: Infusion discontinued jace 18:44 Drug: Oxazepam 20 mg [oxazepam 10 mg capsule (2 caps)] Route: PO; js13 20:48 Drug: Furosemide 40 mg [furosemide 10 mg/mL injection solution (4 mL)] Route: IVP; jace Site: left antecubital; Critical Care Time: 21:15 Critical care time: Bedside Care: 120 minutes, Consultation: 10 minutes. Total time: ml 130 minutes Signatures: Dispatcher [employer] EDMS Kristyn Valdivia MD MD ml Sleeman, Kacey, RN RN kcs Newman, Jill New, RN RN jan Barnhardt, Gloria, Reg Reg gb Lopresti, Mary-Elizabeth, Wire Threader Unit ml3 Tete Jackman,RN RN js13 Yannick Vitale ss12 Kayley Alves gjb Luci Alvarado RN, cas, Samantha RT sd7 The chart was reviewed and I authenticate all verbal orders and agree with the evaluation and treatment provided.Corrections: (The following items were deleted from the chart) 16:55 16:47 LIPASE+LAB ordered. EDMS EDMS 16:55 16:47 AMYLASE+LAB ordered. EDMS EDMS 20:56 20:23 RENAL PROFILE ordered. EDMS EDMS 21:49 21:48 THYROID PROFILE ordered. EDMS EDMS 21:54 21:49 THYROID BINDING GLOBULIN ordered. EDMS EDMS Attachments: 20:19 [facility] Payment Agreement gjb 07/13 12:41 T-Sheet-- Draft Copy gb Chart Complete MTDD
[2016-07-15] MEDS: IPRATROPIUM 0.5MG/ALBUTEROL 2.5MG INH SOL UD 3ML (DUONEB)(J7620) NEB SCH ×4 (02:00→19:59)
[2016-07-15] MEDS: OXAZEPAM 10 MG CAP PO SCH ×2 (05:20→17:05)
[2016-07-15 06:38] LABS: BASO % 0.2 % (0.0-1.0); EOS # 0.2 K/mm3 (0.0-0.50); EOS % 1.5 % (0.0-3.0); LARGE UNSTAINED CELL # 0.2 K/mm3 (0.0-0.4); LARGE UNSTAINED CELL % 2.5 % (0.0-4.0); LYMPH # 1.2 K/mm3 (1.5-4.5); LYMPH % 12.3 % (24.0-44.0); MEAN CORPUSCULAR HEMOGLOBIN 28.2 pg (27.0-33.0); MEAN CORPUSCULAR HGB CONC 33.2 g/dl (32.0-36.5); MONO # 0.6 K/mm3 (0.0-0.8); MONO % 6.4 % (0.0-5.0); NEUTROPHILS # 7.3 K/mm3 (1.8-7.7); NEUTROPHILS % 77.1 % (36.0-66.0); PLATELET COUNT, AUTOMATED 259 k/mm3 (150-450); RED CELL DISTRIBUTION WIDTH 15.2 % (11.5-14.5); WHITE BLOOD COUNT 9.4 K/mm3 (4.0-10.0)
[2016-07-15 06:55] LABS: ANION GAP 8 MEQ/L (8-16); BLOOD UREA NITROGEN 13 MG/DL (7-18); CALCIUM LEVEL 8.7 MG/DL (8.8-10.2); CARBON DIOXIDE LEVEL 31 MEQ/L (21-32); CHLORIDE LEVEL 95 MEQ/L (98-107); CREATININE FOR GFR 0.76 MG/DL (0.70-1.30); GLOMERULAR FILTRATION RATE > 60.0 (>35); GLUCOSE, FASTING 122 MG/DL (83-110); PHOSPHORUS LEVEL 2.9 MG/DL (2.5-4.9); POTASSIUM SERUM 3.8 MEQ/L (3.5-5.1); SODIUM LEVEL 134 MEQ/L (136-145)
[2016-07-15] MEDS: FUROSEMIDE 40 MG/4 ML VIAL (J1940) IV SCH (09:00)
[2016-07-15] MEDS: amLODIPine 5 MG TAB PO SCH (09:00)
[2016-07-15] MEDS: FUROSEMIDE 20 MG TAB PO SCH ×2 (09:00→17:16)
[2016-07-15] MEDS: ATENOLOL 25 MG TAB PO SCH (09:00)
[2016-07-15] MEDS: MULTIVITAMINS/MINERALS THERAP 1 TAB PO SCH (09:11)
[2016-07-15] MEDS: FINASTERIDE 5 MG TAB PO SCH (09:11)
[2016-07-15] MEDS: POTASSIUM CHLORIDE 10 MEQ SR TABLET PO SCH (09:11)
[2016-07-15] MEDS: ATORVASTATIN 10 MG TAB PO SCH (09:13)
[2016-07-15] MEDS: THIAMINE 100 MG TAB PO SCH (09:13)
[2016-07-15] MEDS: CitaloPRAM (CeleXA) 20 MG TAB PO SCH (09:13)
[2016-07-15] MEDS: FOLIC ACID 1 MG TAB PO SCH (09:14)
[2016-07-15] MEDS: FERROUS SULFATE 325MG TAB PO SCH ×2 (09:14→20:57)
[2016-07-15] MEDS: ENOXAPARIN 40 MG/0.4 ML SYRINGE (J1650) SC SCH (09:14)
[2016-07-15] MEDS: ASPIRIN 81 MG ENTERIC TAB PO SCH (09:14)
[2016-07-15] MEDS: TAMSULOSIN 0.4 MG CAP PO SCH (09:14)
[2016-07-15] MEDS: traMADol 50 MG TAB PO SCH ×2 (09:14→20:58)
--- NOTE | 2016-07-15 11:15 | IPNPDOC ---
Text Note Date of Service The patient was seen on 07/15/16 at 11:13. NOTE Subjective: Patient is a 81 year old male with a PMHx of COPD, SBO 2/2 adhesions, CAD s/p CABG, HTN, DLP, Colorectal CA, Perforated ulcer, Hx of hyponatremia, who presented to the ER with complaints of fatigue, anxiety and alcohol abuse. Patient noted that he was anxious at home and took alcohol to help control it. Patient had complaints of a shortness of breath and a non-productive cough. Patient was seen and examined at the bedside. Patient denies any problems. However this morning, nursing staff has noted that he may have aspirated while taking his medications. Objective: Vitals (See below) General: Sitting up in bed, no acute distress, AAOx3 HEENT: NC, AT CVS: RRR, +S1S2 Lungs: Fair air entry b/l, - w/r/r Abdomen: Soft, ND, NT, +BSx4 Extremities: no lower extremity edema, -calf tenderness Assessment and plan: 1. Hyponatremia - possibly 2/2 SIADH, beer potomania, fluid overload - Has no signs of confusion, or altered mental status, no seizure episodes - No focal weakness - CXR with granulomatous disease, COPD, left lower lobe scarring - Sodium on admission was 117, has shown improvement; currently at 134 - Dose of lasix reduced to 20 IV BID from 40 IV BID - Nephrology (Dr. Levine) following - appreciate their input 2. Normocytic anemia - B12 and Folate adequate - Reticulocyte index of 1.4 - hypoproliferative - Iron panel consistent with ROSE - s/p Iron sucrose 500mg IV on 07/13 - will c/w ferrous sulfate 325 BID 3. Granulomatous disease - CXR with granulomas; US of liver reveals granulomas 4. Abnormal thyroid function - TSH normal; Mild elevation of free T4 - will need repeat of thyroid function test - thyroglobulin antibody negative - outpatient follow up with ultrasound 5. Alcohol abuse - c/w Folate, Thiamine and Multivitamin - alcohol withdrawal precautions - Currently on serax 15mg PO q8h; will begin to taper today 6. HTN - BP well controlled - c/w lisinopril and amlodipine with holding parameters 7. COPD - c/w duoneb breathing treatments 8. Insomnia - c/w mirtazapine PRN 9. Back pain - c/w ultram 10. Anxiety - c/w celeza and atenolol 11. BPH - c/w tamsulosin and finasteride 12. DLP - c/w lipitor 13. Swallowing difficulty - Possible aspiration this morning - Will get CXR to evaluate for infiltrate - Will get swallow evaluation - c/w aspiration precautions 14. CAD - s/p CABG - c/w ASA, Atenolol, Lipitor and Lisinopril 15. DVT prophylaxis - c/w Lovenox VS,Fishbone, I+O VS, Fishbone, I+O Laboratory Tests 07/15/16 06:00 Anion Gap 8, Red Blood Count 3.70 L, Mean Corpuscular Volume 85.0, Mean Corpuscular Hemoglobin 28.2, Mean Corpuscular Hemoglobin Concent 33.2, Red Cell Distribution Width 15.2 H, Neutrophils (%) (Auto) 77.1 H, Lymphocytes (%) (Auto ) 12.3 L, Monocytes (%) (Auto) 6.4 H, Eosinophils (%) (Auto) 1.5, Basophils (%) (Auto) 0.2, Neutrophils # (Auto) 7.3, Lymphocytes # (Auto) 1.2 L, Monocytes # ( Auto) 0.6, Eosinophils # (Auto) 0.2, Basophils # (Auto) 0.0 Vital Signs Date Time Temp Pulse Resp B/P Pulse Ox O2 Delivery O2 Flow Rate FiO2 07/15/16 09:14 20 07/15/16 09:00 83 108/63 07/15/16 08:15 Room Air 07/14/16 21:40 97.1 91 07/14/16 12:00 2.0 I&O- Last 24 Hours up to 6 AM 07/15/16 06:00 Intake Total 1220 ml Output Total 2450 ml Balance -1230 ml PIA PATEL MD Jul 15, 2016 11:15
[2016-07-15] MEDS ORDERED: VARIBAR PUDDING 40% w/v 230ML TUBE As Ordered ONE (11:33)
[2016-07-15] MEDS ORDERED: E-Z-PAQUE 96% w/w SUSP 176GM BTL As Ordered ONE (11:33)
[2016-07-15] MEDS ORDERED: VARIBAR NECTAR 40% w/v 240ML SUSP BTL As Ordered ONE (11:33)
--- NOTE | 2016-07-15 13:10 | REP ---
CHEST, SINGLE VIEW: Single view of the chest was performed. Interstitial fibrotic scarring is again seen bilaterally with tiny calcified granulomas. There is no evidence of barium aspiration. The heart is normal in size. There is calcified tortuous aorta. Mediastinal silhouette is unchanged. Multiple sternal wires and mediastinal clips are present. IMPRESSION: No acute infiltrate. No evidence of aspiration into the bronchial system. Signed by Quoc Ferrari MD 07/15/2016 01:30 P
[2016-07-15 14:00] VITALS: BP 106/61
[2016-07-15] MEDS ORDERED: OXAZEPAM 10 MG CAP PO SCH (14:00)
--- NOTE | 2016-07-15 14:29 | REP ---
COOKIE SWALLOW: The procedure was performed under the direct supervision of Dr. Ferrari. The procedure was performed with Chio Carbajal from speech pathology present. 5 mL aliquots of nectar pudding, solid, and thin consistency barium was administered. There is no evidence of penetration or aspiration. A detailed report of this examination will be provided by speech pathology. 55 seconds of fluoroscopy time was utilized for this procedure. Reviewed by TABBY Meier 07/15/2016 04:13 PEdited and Signed by Quoc Ferrari MD 07/15/2016 05:22 P
[2016-07-15] MEDS: MIRTAZAPINE 15 MG TAB PO PRN (20:57)
[2016-07-15 22:00] VITALS: BP 122/59
[2016-07-16] MEDS: IPRATROPIUM 0.5MG/ALBUTEROL 2.5MG INH SOL UD 3ML (DUONEB)(J7620) NEB SCH ×4 (00:06→20:04)
--- NOTE | 2016-07-16 01:36 | IPN ---
DATE OF SERVICE: 07/15/2016 SUBJECTIVE: Patient was seen and examined at the bedside today in the morning. He feels much better. His sodium is improving. Sodium is 134 today. REVIEW OF SYSTEMS: Patient is awake and alert. He denies any fever, chills, rigors, headache, nausea, vomiting, chest pain, shortness of breath, pain abdomen, constipation or diarrhea. Rest of review of systems is negative. OBJECTIVE: VITAL SIGNS: Temperature is 97.1 degrees Fahrenheit, blood pressure is 108/63, pulse is 83, respiratory rate of 18, saturating 91% on room air. INTAKE AND OUTPUT: Urine output recorded is 3.2 liters yesterday, 725 mL so far today. PHYSICAL EXAMINATION: GENERAL: Patient is awake, alert and oriented times three, lying in bed, no apparent distress. HEAD AND NECK EXAM: Extraocular muscles intact. Pupils equally round and reactive to light. Neck is supple. There is no jugular venous distention (JVD). Mucous membranes are moist. CARDIOVASCULAR: S1, S2, regular rate. No murmur, rub or gallop. RESPIRATORY: Chest is clear to auscultation bilaterally. Bilateral equal air entry. No rales or rhonchi. ABDOMEN: Soft. Positive bowel sounds. Nontender. No ascites. No organomegaly. Patient has an old midline surgical scar. EXTREMITIES: No clubbing or cyanosis. Pulses are 2+. No edema of the bilateral lower extremities. CENTRAL NERVOUS SYSTEM: No focal neurological deficit. Power is 5/5 in all extremities. LABORATORY REVIEW: CBC showed a WBC 9.4, hemoglobin 10.4, platelets are 259. BMP showed sodium 134, potassium 3.8, chloride 95, bicarbonate 31, BUN 13, creatinine is 0.7. Calcium is 8.7. Phosphorus is 2.9. CURRENT MEDICATIONS: Patient's current medications were all reviewed by me. His intravenous (IV) Lasix has been stopped and he has been switched to oral Lasix 20 mg by mouth twice a day. His oxazepam dose is being tapered down. ASSESSMENT: 81-year-old male with past medical history of hypertension, coronary artery disease, chronic obstructive pulmonary disease (COPD), history of alcohol abuse, admitted this time with symptomatic hyponatremia. PLAN: 1. Hyponatremia. The patient is responding well to current dose of Lasix. I have switched him to oral Lasix. Continue to check BMP daily. Sodium is 134. His sodium would normalize hopefully by tomorrow morning. 2. Hypertension. Patient's blood pressure is acceptable at this time. His angiotensin-converting enzyme (ANNA) inhibitors were stopped when he came to the hospital. Continue current dose of atenolol. No need to add anymore hypertensives at this time. He is currently on amlodipine 5 mg by mouth daily. 3. Congestive heart failure with diastolic dysfunction. On the recent echocardiogram, patient's volume status is well optimized at this time. His Lasix dose has been decreased to 20 mg by mouth twice a day. Further adjustment on dosage after the labs review tomorrow morning. 4. Iron deficiency anemia. Patient is status post intravenous (IV) iron during this admission. Hemoglobin is acceptable. Continue to monitor for now.
[2016-07-16] MEDS: OXAZEPAM 10 MG CAP PO SCH ×2 (05:21→17:05)
[2016-07-16 06:00] VITALS: BP 127/74
[2016-07-16 06:49] LABS: BASO % 0.3 % (0.0-1.0); EOS # 0.1 K/mm3 (0.0-0.50); EOS % 1.2 % (0.0-3.0); LARGE UNSTAINED CELL # 0.3 K/mm3 (0.0-0.4); LARGE UNSTAINED CELL % 2.5 % (0.0-4.0); LYMPH # 1.4 K/mm3 (1.5-4.5); LYMPH % 11.2 % (24.0-44.0); MEAN CORPUSCULAR HEMOGLOBIN 28.6 pg (27.0-33.0); MEAN CORPUSCULAR HGB CONC 33.3 g/dl (32.0-36.5); MEAN CORPUSCULAR VOLUME 85.8 fl (80.0-96.0); MONO # 0.6 K/mm3 (0.0-0.8); MONO % 6.2 % (0.0-5.0); NEUTROPHILS # 8.1 K/mm3 (1.8-7.7); NEUTROPHILS % 78.6 % (36.0-66.0); PLATELET COUNT, AUTOMATED 247 k/mm3 (150-450); RED CELL DISTRIBUTION WIDTH 15.9 % (11.5-14.5); WHITE BLOOD COUNT 10.3 K/mm3 (4.0-10.0)
[2016-07-16 07:13] LABS: ALBUMIN 3.1 GM/DL (3.2-5.2); ANION GAP 11 MEQ/L (8-16); BLOOD UREA NITROGEN 11 MG/DL (7-18); CALCIUM LEVEL 8.9 MG/DL (8.8-10.2); CARBON DIOXIDE LEVEL 26 MEQ/L (21-32); CHLORIDE LEVEL 96 MEQ/L (98-107); GLOMERULAR FILTRATION RATE > 60.0 (>35); GLUCOSE, FASTING 131 MG/DL (83-110); PHOSPHORUS LEVEL 2.9 MG/DL (2.5-4.9); POTASSIUM SERUM 4.1 MEQ/L (3.5-5.1); SODIUM LEVEL 133 MEQ/L (136-145)
[2016-07-16] MEDS: ATENOLOL 25 MG TAB PO SCH (10:10)
[2016-07-16] MEDS: FERROUS SULFATE 325MG TAB PO SCH ×2 (10:10→21:09)
[2016-07-16] MEDS: TAMSULOSIN 0.4 MG CAP PO SCH (10:10)
[2016-07-16] MEDS: ENOXAPARIN 40 MG/0.4 ML SYRINGE (J1650) SC SCH (10:10)
[2016-07-16] MEDS: FUROSEMIDE 20 MG TAB PO SCH ×2 (10:11→17:05)
[2016-07-16] MEDS: THIAMINE 100 MG TAB PO SCH (10:11)
[2016-07-16] MEDS: FINASTERIDE 5 MG TAB PO SCH (10:11)
[2016-07-16] MEDS: ATORVASTATIN 10 MG TAB PO SCH (10:11)
[2016-07-16] MEDS: ASPIRIN 81 MG ENTERIC TAB PO SCH (10:11)
[2016-07-16] MEDS: amLODIPine 5 MG TAB PO SCH (10:12)
[2016-07-16] MEDS: CitaloPRAM (CeleXA) 20 MG TAB PO SCH (10:12)
[2016-07-16] MEDS: MULTIVITAMINS/MINERALS THERAP 1 TAB PO SCH (10:12)
[2016-07-16] MEDS: FOLIC ACID 1 MG TAB PO SCH (10:12)
[2016-07-16] MEDS: traMADol 50 MG TAB PO SCH ×2 (10:13→21:10)
[2016-07-16] MEDS: SODIUM CHLORIDE 1 GM TAB PO SCH ×2 (11:50→21:09)
--- NOTE | 2016-07-16 12:36 | REP ---
CT chest without contrast: History: Evaluate for infiltrate. Comparison portable chest x-ray is from July 15, 2016. No comparison CT study. Findings: The there is a thick-walled cavitary mass in the right superior hilus measuring 2.8 x 3.1 x 2.8 cm. There is encasement and narrowing of the right upper lobe bronchus just below the cavitary lesion consistent with malignant encasement. There is no evidence of infiltrate. In the right upper lobe there are scattered areas of pricilla bronchovascular interstitial opacity and some inspissated intrabronchial material is seen. There are scattered granulomatous calcifications in the right lower lobe and in the left lower lobe. There is a granulomatous calcification in the lingula. There is bibasilar interstitial fibrosis. There are granulomatous lymph node residuals in the pretracheal mediastinum. No definite mediastinal adenopathy is seen. Extensive vascular calcification is seen. There are granulomatous calcifications within the spleen. No adrenal mass is observed on either side. A few scattered granulomatous calcifications are seen in the liver as well. There are clips in the upper abdomen. Prior sternotomy is seen. No bony destructive lesion is appreciated. Impression: There is a 3 cm central right upper lobe lung mass with cavitary change and encasement of the right upper lobe bronchus consistent with primary lung malignancy. Old granulomatous changes are seen. No CT evidence of pneumonia. Recommend PET-CT study and pulmonary medicine evaluation for further evaluation. Signed by Arpit Prabhakar MD 07/16/2016 02:07 P
--- NOTE | 2016-07-16 13:38 | IPNPDOC ---
Text Note Date of Service The patient was seen on 07/16/16 at 13:30. NOTE Subjective: Patient is a 81 year old male with a PMHx of COPD, SBO 2/2 adhesions, CAD s/p CABG, HTN, DLP, Colorectal CA, Perforated ulcer, Hx of hyponatremia, who presented to the ER with complaints of fatigue, anxiety and alcohol abuse. Patient noted that he was anxious at home and took alcohol to help control it. Patient had complaints of a shortness of breath and a non-productive cough. Patient was seen and examined at the bedside. Patient notes that he has been coughing still. Has had weak swallowing ability. Objective: Vitals (See below) General: Sitting up in bed, no acute distress, AAOx3 HEENT: NC, AT CVS: RRR, +S1S2 Lungs: Fair air entry b/l, Course lung sounds bilaterally Abdomen: Soft, ND, NT, +BSx4 Extremities: no lower extremity edema, -calf tenderness Assessment and plan: 1. 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 Levine) following - appreciate their input - Will discuss case with pulmonary (Dr. Siu) - appreciate their input 2. 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 Siu) - appreciate their input 3. Normocytic anemia - B12 and Folate adequate - Reticulocyte index of 1.4 - hypoproliferative - Iron panel consistent with ROSE - s/p Iron sucrose 500mg IV on 07/13 - will c/w ferrous sulfate 325 BID 4. Abnormal thyroid function - TSH normal; Mild elevation of free T4 - will need repeat of thyroid function test - thyroglobulin antibody negative - outpatient follow up with ultrasound 5. Alcohol abuse - c/w Folate, Thiamine and Multivitamin - alcohol withdrawal precautions - Currently on serax 15mg PO q8h; will begin to taper today 6. HTN - BP well controlled - c/w lisinopril and amlodipine with holding parameters 7. COPD - c/w duoneb breathing treatments 8. Insomnia - c/w mirtazapine PRN 9. Back pain - c/w ultram 10. Anxiety - c/w celeza and atenolol 11. BPH - c/w tamsulosin and finasteride 12. DLP - c/w lipitor 13. Swallowing difficulty - Possible aspiration this morning - CXR was negative for infiltrate and CT chest did not reveal any pneumonia - Swallow evaluation complete; did not reveal aspiration - c/w aspiration precautions - diet has been advanced; is tolerating 14. CAD - s/p CABG - c/w ASA, Atenolol, Lipitor and Lisinopril 15. DVT prophylaxis - c/w Lovenox VS,Fishbone, I+O VS, Fishbone, I+O Laboratory Tests 07/16/16 06:27 Anion Gap 11, Red Blood Count 3.90 L, Mean Corpuscular Volume 85.8, Mean Corpuscular Hemoglobin 28.6, Mean Corpuscular Hemoglobin Concent 33.3, Red Cell Distribution Width 15.9 H, Neutrophils (%) (Auto) 78.6 H, Lymphocytes (%) (Auto ) 11.2 L, Monocytes (%) (Auto) 6.2 H, Eosinophils (%) (Auto) 1.2, Basophils (%) (Auto) 0.3, Neutrophils # (Auto) 8.1 H, Lymphocytes # (Auto) 1.4 L, Monocytes # (Auto) 0.6, Eosinophils # (Auto) 0.1, Basophils # (Auto) 0.0 Vital Signs Date Time Temp Pulse Resp B/P Pulse Ox O2 Delivery O2 Flow Rate FiO2 07/16/16 10:13 16 07/16/16 09:00 Room Air 07/16/16 06:00 96.4 83 127/74 92 07/14/16 12:00 2.0 I&O- Last 24 Hours up to 6 AM 07/16/16 06:00 Intake Total 650 ml Output Total 1600 ml Balance -950 ml PIA PATEL MD Jul 16, 2016 13:35
[2016-07-16 14:00] VITALS: BP 97/61
[2016-07-16 22:00] VITALS: BP 104/57
[2016-07-17] MEDS: IPRATROPIUM 0.5MG/ALBUTEROL 2.5MG INH SOL UD 3ML (DUONEB)(J7620) NEB SCH ×4 (02:00→20:36)
[2016-07-17 06:00] VITALS: BP 114/61
[2016-07-17] MEDS: OXAZEPAM 10 MG CAP PO SCH (06:13)
[2016-07-17 06:40] LABS: BASO % 0.2 % (0.0-1.0); EOS # 0.2 K/mm3 (0.0-0.50); EOS % 2.3 % (0.0-3.0); LARGE UNSTAINED CELL # 0.3 K/mm3 (0.0-0.4); LARGE UNSTAINED CELL % 3.6 % (0.0-4.0); LYMPH # 1.5 K/mm3 (1.5-4.5); LYMPH % 16.1 % (24.0-44.0); MEAN CORPUSCULAR HEMOGLOBIN 28.6 pg (27.0-33.0); MEAN CORPUSCULAR VOLUME 86.5 fl (80.0-96.0); MONO # 0.5 K/mm3 (0.0-0.8); MONO % 5.5 % (0.0-5.0); NEUTROPHILS # 6.8 K/mm3 (1.8-7.7); NEUTROPHILS % 72.2 % (36.0-66.0); PLATELET COUNT, AUTOMATED 246 k/mm3 (150-450); RED CELL DISTRIBUTION WIDTH 15.1 % (11.5-14.5); WHITE BLOOD COUNT 9.4 K/mm3 (4.0-10.0)
[2016-07-17 06:57] LABS: ALBUMIN 3.1 GM/DL (3.2-5.2); ANION GAP 10 MEQ/L (8-16); BLOOD UREA NITROGEN 15 MG/DL (7-18); CALCIUM LEVEL 8.9 MG/DL (8.8-10.2); CARBON DIOXIDE LEVEL 27 MEQ/L (21-32); CHLORIDE LEVEL 97 MEQ/L (98-107); CREATININE FOR GFR 0.74 MG/DL (0.70-1.30); GLOMERULAR FILTRATION RATE > 60.0 (>35); GLUCOSE, FASTING 124 MG/DL (83-110); SODIUM LEVEL 134 MEQ/L (136-145)
--- NOTE | 2016-07-17 08:25 | IPN ---
DATE: 07/16/2016 SUBJECTIVE: Patient was seen and examined today in the morning. He reported that he was not feeling good; however, he could not pinpoint any pertinent symptoms. He reports that he is still having some cough and phlegm. His sodium is fluctuating between 133 and 134. Otherwise, renal function is stable. The patient just got the CAT scan of the chest done today morning for persistent cough and he was found to have right upper lobe lung mass. REVIEW OF SYSTEMS: Patient denies any fever, chills, rigors, headache, nausea, vomiting, chest pain. He does report some cough and phlegm. He denies any pain in abdomen, constipation or diarrhea. Rest of review of systems is negative. OBJECTIVE: VITAL SIGNS: Temperature is 96.4 degrees Fahrenheit, blood pressure is 127/74, pulse is 83, respiratory rate of 18, saturating 92% on room air. INTAKE AND OUTPUT: Urine output recorded as 925 mL yesterday, 1275 mL so far today. PHYSICAL EXAMINATION: GENERAL: Patient is awake, alert and oriented times three, sitting in the bed, slightly drowsy, in no apparent distress. HEAD AND NECK EXAM: Extraocular muscles intact. Pupils equally round and reactive to light. Neck is supple. There is no jugular venous distention (JVD). Mucous membranes are moist. CARDIOVASCULAR: S1, S2, regular rate. No murmur, rub or gallop. RESPIRATORY: Chest is clear to auscultation bilaterally. Bilateral equal air entry. No rales or rhonchi. ABDOMEN: Soft. Positive bowel sounds. Nontender. No ascites. No organomegaly. Positive old midline surgical scar. EXTREMITIES: No clubbing or cyanosis. Pulses are 2+. No edema of the bilateral lower extremities. CENTRAL NERVOUS SYSTEM: No focal neurological deficit. Power is 5/5 in all extremities. LABORATORY REVIEW: CBC showed a WBC of 10.3, hemoglobin 11.2, platelets are 247. BMP showed sodium 133, potassium 4.1, chloride 96, bicarbonate 26, BUN 11, creatinine 0.7, calcium is 8.9, phosphorus is 2.9. Albumin is 3.1. MICROBIOLOGY: Sputum for gram stain showed many gram positive cocci in clusters and chains. Moderate gram positive rods and a few gram negative rods. IMAGING: A CAT scan of the chest was done today morning which showed 3 cm central right upper lobe lung mass with cavity changes and encasement of the right upper lobe bronchus consistent with primary lung malignancy. No evidence of pneumonia. CURRENT MEDICATIONS: Patient's current medications were all reviewed by me. He has been started on sodium chloride 1 gram by mouth twice a day. He continues to be on Lasix 20 mg by mouth twice a day as well. ASSESSMENT: 81-year-old male with past medical history of hypertension, coronary artery disease, chronic obstructive pulmonary disease (COPD), history of alcohol abuse, admitted at this time with symptomatic hyponatremia. Later on, imaging showed right upper lobe lung mass. PLAN: 1. Hyponatremia. 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 Continue Lasix 20 mg by mouth twice a day and sodium chloride 1 gram by mouth twice a day. If sodium does not stay stable, then he will be switched to demeclocycline orally. 2. Right upper lobe mass. Patient was just found to have a right upper lobe mass. Management is as per primary team and hematology/oncology. 3. Hypertension. Patient's blood pressure is acceptable at this time. Continue current dose of amlodipine 5 mg by mouth daily. Plan of care was discussed with the hospitalist, Dr. Topher Garvin.
[2016-07-17] MEDS: MULTIVITAMINS/MINERALS THERAP 1 TAB PO SCH (08:35)
[2016-07-17] MEDS: CitaloPRAM (CeleXA) 20 MG TAB PO SCH (08:35)
[2016-07-17] MEDS: FOLIC ACID 1 MG TAB PO SCH (08:35)
[2016-07-17] MEDS: FINASTERIDE 5 MG TAB PO SCH (08:35)
[2016-07-17] MEDS: THIAMINE 100 MG TAB PO SCH (08:35)
[2016-07-17] MEDS: ATORVASTATIN 10 MG TAB PO SCH (08:35)
[2016-07-17] MEDS: FUROSEMIDE 20 MG TAB PO SCH ×2 (08:35→17:07)
[2016-07-17] MEDS: ASPIRIN 81 MG ENTERIC TAB PO SCH (08:35)
[2016-07-17] MEDS: FERROUS SULFATE 325MG TAB PO SCH ×2 (08:35→21:02)
[2016-07-17] MEDS: SODIUM CHLORIDE 1 GM TAB PO SCH (08:35)
[2016-07-17 08:36] VITALS: BP 110/62
[2016-07-17] MEDS: TAMSULOSIN 0.4 MG CAP PO SCH (08:36)
[2016-07-17] MEDS: amLODIPine 5 MG TAB PO SCH (08:36)
[2016-07-17] MEDS: traMADol 50 MG TAB PO SCH ×2 (08:37→21:03)
[2016-07-17] MEDS: ENOXAPARIN 40 MG/0.4 ML SYRINGE (J1650) SC SCH (08:37)
[2016-07-17] MEDS: ATENOLOL 25 MG TAB PO SCH (08:38)
--- NOTE | 2016-07-17 13:53 | IPNPDOC ---
Text Note Date of Service The patient was seen on 07/17/16 at 13:49. NOTE Subjective: Patient is a 81 year old male with a PMHx of COPD, SBO 2/2 adhesions, CAD s/p CABG, HTN, DLP, Colorectal CA, Perforated ulcer, Hx of hyponatremia, who presented to the ER with complaints of fatigue, anxiety and alcohol abuse. Patient noted that he was anxious at home and took alcohol to help control it. Patient had complaints of a shortness of breath and a non-productive cough. Patient was seen and examined at the bedside. Patient has still been complaining of persistent productive cough. I have advised him about his CT scan findings and the importance of follow up with pulmonary medicine. Objective: Vitals (See below) General: Sitting up in bed, no acute distress, AAOx3 HEENT: NC, AT CVS: RRR, +S1S2 Lungs: Fair air entry b/l, Course lung sounds bilaterally Abdomen: Soft, ND, NT, +BSx4 Extremities: no lower extremity edema, -calf tenderness Assessment and plan: 1. 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 Levine) following - appreciate their input 2. 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 Siu) - Case discussed and we will arrange for follow up appointment; appreciate pulmonary's input 3. Normocytic anemia - B12 and Folate adequate - Reticulocyte index of 1.4 - hypoproliferative - Iron panel consistent with ROSE - s/p Iron sucrose 500mg IV on 07/13 - will c/w ferrous sulfate 325 BID 4. Abnormal thyroid function - TSH normal; Mild elevation of free T4 - will need repeat of thyroid function test - thyroglobulin antibody negative - outpatient follow up with ultrasound 5. Alcohol abuse - c/w Folate, Thiamine and Multivitamin - alcohol withdrawal precautions - Will continue taper of Serax 6. HTN - BP well controlled - c/w lisinopril and amlodipine with holding parameters 7. COPD - c/w duoneb breathing treatments 8. Insomnia - c/w mirtazapine PRN 9. Back pain - c/w ultram 10. Anxiety - c/w celeza and atenolol 11. BPH - c/w tamsulosin and finasteride 12. DLP - c/w lipitor 13. Swallowing difficulty - Possible aspiration this morning - CXR was negative for infiltrate and CT chest did not reveal any pneumonia - Swallow evaluation complete; did not reveal aspiration - c/w aspiration precautions - diet has been advanced; is tolerating 14. CAD - s/p CABG - c/w ASA, Atenolol, Lipitor and Lisinopril 15. DVT prophylaxis - c/w Lovenox VS,Fishbone, I+O VS, Fishbone, I+O Laboratory Tests 07/17/16 06:22 Anion Gap 10, Red Blood Count 3.74 L, Mean Corpuscular Volume 86.5, Mean Corpuscular Hemoglobin 28.6, Mean Corpuscular Hemoglobin Concent 33.0, Red Cell Distribution Width 15.1 H, Neutrophils (%) (Auto) 72.2 H, Lymphocytes (%) (Auto ) 16.1 L, Monocytes (%) (Auto) 5.5 H, Eosinophils (%) (Auto) 2.3, Basophils (%) (Auto) 0.2, Neutrophils # (Auto) 6.8, Lymphocytes # (Auto) 1.5, Monocytes # ( Auto) 0.5, Eosinophils # (Auto) 0.2, Basophils # (Auto) 0.0 Vital Signs Date Time Temp Pulse Resp B/P Pulse Ox O2 Delivery O2 Flow Rate FiO2 07/17/16 09:00 Room Air 07/17/16 08:37 16 07/17/16 08:36 60 110/62 07/17/16 06:00 97.2 93 07/14/16 12:00 2.0 I&O- Last 24 Hours up to 6 AM 07/17/16 05:59 Intake Total 1480 ml Output Total 1875 ml Balance -395 ml PIA PATEL MD Jul 17, 2016 13:53
[2016-07-17 14:00] VITALS: BP 102/62
[2016-07-17 17:05] VITALS: BP 109/67
[2016-07-17] MEDS: MIRTAZAPINE 15 MG TAB PO PRN (21:06)
[2016-07-17 22:00] VITALS: BP 101/55
[2016-07-18] MEDS: IPRATROPIUM 0.5MG/ALBUTEROL 2.5MG INH SOL UD 3ML (DUONEB)(J7620) NEB SCH ×3 (01:40→13:46)
[2016-07-18 06:00] VITALS: BP 105/71
[2016-07-18 07:20] LABS: BASO % 0.1 % (0.0-1.0); EOS # 0.2 K/mm3 (0.0-0.50); EOS % 2.1 % (0.0-3.0); LARGE UNSTAINED CELL # 0.2 K/mm3 (0.0-0.4); LARGE UNSTAINED CELL % 2.6 % (0.0-4.0); LYMPH % 11.1 % (24.0-44.0); MEAN CORPUSCULAR HEMOGLOBIN 28.7 pg (27.0-33.0); MEAN CORPUSCULAR HGB CONC 33.6 g/dl (32.0-36.5); MEAN CORPUSCULAR VOLUME 85.3 fl (80.0-96.0); MONO # 0.5 K/mm3 (0.0-0.8); MONO % 5.5 % (0.0-5.0); NEUTROPHILS # 7.1 K/mm3 (1.8-7.7); NEUTROPHILS % 78.5 % (36.0-66.0); PLATELET COUNT, AUTOMATED 233 k/mm3 (150-450); RED CELL DISTRIBUTION WIDTH 15.2 % (11.5-14.5); WHITE BLOOD COUNT 9.1 K/mm3 (4.0-10.0)
[2016-07-18 07:40] LABS: ANION GAP 7 MEQ/L (8-16); BLOOD UREA NITROGEN 13 MG/DL (7-18); CALCIUM LEVEL 8.6 MG/DL (8.8-10.2); CARBON DIOXIDE LEVEL 30 MEQ/L (21-32); CHLORIDE LEVEL 97 MEQ/L (98-107); CREATININE FOR GFR 0.75 MG/DL (0.70-1.30); GLOMERULAR FILTRATION RATE > 60.0 (>35); GLUCOSE, FASTING 121 MG/DL (83-110); PHOSPHORUS LEVEL 2.9 MG/DL (2.5-4.9); POTASSIUM SERUM 3.5 MEQ/L (3.5-5.1); SODIUM LEVEL 134 MEQ/L (136-145)
[2016-07-18] MEDS ORDERED: OXAZEPAM 10 MG CAP PO SCH (09:00)
[2016-07-18] MEDS: FERROUS SULFATE 325MG TAB PO SCH (09:45)
[2016-07-18] MEDS: MULTIVITAMINS/MINERALS THERAP 1 TAB PO SCH (09:45)
[2016-07-18] MEDS: FINASTERIDE 5 MG TAB PO SCH (09:45)
[2016-07-18] MEDS: CitaloPRAM (CeleXA) 20 MG TAB PO SCH (09:45)
[2016-07-18] MEDS: FOLIC ACID 1 MG TAB PO SCH (09:45)
[2016-07-18] MEDS: THIAMINE 100 MG TAB PO SCH (09:45)
[2016-07-18] MEDS: ASPIRIN 81 MG ENTERIC TAB PO SCH (09:45)
[2016-07-18] MEDS: TAMSULOSIN 0.4 MG CAP PO SCH (09:45)
[2016-07-18] MEDS: ATORVASTATIN 10 MG TAB PO SCH (09:45)
[2016-07-18] MEDS: amLODIPine 5 MG TAB PO SCH (09:46)
[2016-07-18] MEDS: FUROSEMIDE 20 MG TAB PO SCH (09:46)
[2016-07-18] MEDS: ENOXAPARIN 40 MG/0.4 ML SYRINGE (J1650) SC SCH (09:47)
[2016-07-18] MEDS: traMADol 50 MG TAB PO SCH (09:47)
[2016-07-18] MEDS: ATENOLOL 25 MG TAB PO SCH (09:47)
[2016-07-18] MEDS ORDERED: POTASSIUM CHLORIDE 10 MEQ SR TABLET PO ONE (11:30)
--- NOTE | 2016-07-18 11:35 | IPN ---
DATE: 07/18/2016 SUBJECTIVE: The patient was seen this morning at bedside. No acute overnight issues. He reports that he is feeling well and ready to go home. Denies any shortness of breath. No gastrointestinal (GI) symptoms. Cumulative net negative of 4600. Mentation is at baseline. Weight of 55 kg from initial of 66.68 kg. OBJECTIVE: VITAL SIGNS: Temperature 98.5, pulse 98, respiratory rate 21, blood pressure 105/71, pulse oximetry 95% on room air. GENERAL: Patient is awake and alert. In no acute distress. HEENT: Normocephalic, atraumatic. Extraocular muscles are intact. Moist mucosa. NECK: Supple. No jugular venous distension appreciated. HEART: Normal S1 and S2. Regular rate and rhythm. No murmurs appreciated. LUNGS: Diminished breath sounds bilaterally. No rales or rhonchi appreciated. ABDOMEN: Soft, nontender, nondistended. EXTREMITIES: No lower extremity edema. No cyanosis. NEUROLOGIC: No focal deficits. LABORATORY DATA: WBC 9.1, hemoglobin 10.7, hematocrit 31.9, platelet count 233, sodium 134, potassium 3.5, chloride 97, carbon dioxide 30, anion gap 7, BUN 13, creatinine 0.75, GFR greater than 60, fasting glucose 121, calcium 8.6, phosphorus 2.9, albumin 3.0. ASSESSMENT/PLAN: 1. Hyponatremia. 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 The patient is no longer on sodium chloride tablets. Continue with Lasix, changed to 20 mg daily. Sodium is currently 134 and stable. Continue with fluid restriction. Patient has an extensive smoking history. States that he has been smoking since he was 9 intermittently about one pack per day. Continue with a regular diet. 2. Right upper lobe mass. The patient will need to see pulmonary as outpatient and further workup will take place at that time. May also need to see hematology/oncology after official pathology results. 3. Hypertension. Blood pressure was a little soft this morning. He remains on amlodipine 5 mg daily. Lasix has been changed to once daily dosing and blood pressure will need to continue to be monitored. He is also on atenolol 25 mg daily. Further adjustments in blood pressure medications can be further adjusted if needed for soft blood pressures. DISPOSITION: The patient's sodium is stable and he can be discharged to followup with the appropriate specialties in regard to his right upper lobe mass. Followup with nephrology as an outpatient. Thank you for allowing us to participate in the care of Mr. Gresham My preceptor for this patient encounter was Dr. Adam Tripp. The preceptor was physically present in the building during the encounter and was fully available. As needed, all aspects of the patient interview, examination, medical decision making process, and medical care plan development were reviewed and approved by the preceptor. The preceptor is aware and concurs with the plan as stated in the body of this note and will attest to such by his/her cosignature. CANDICE
--- NOTE | 2016-07-18 12:02 | IPN ---
DATE OF VISIT: 07/17/2016 SUBJECTIVE: The patient was seen and examined at the bedside today. His sodium is stable. 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 He is slightly depressed today. The patient does not have any other active complaints. REVIEW OF SYSTEMS: The patient denies any fever, chills, rigors, headache, nausea, vomiting, chest pain. The does report some cough and phlegm. He denies any shortness of breath. He denies any constipation or diarrhea, or abdominal pain. The rest of the review of systems is negative. OBJECTIVE: VITAL SIGNS: Temperature 97.9 degrees Fahrenheit, blood pressure 102/62, pulse 79, respiratory rate 18, saturating 100% on room air. Intake and output: Urine output recorded as 1.8 liters yesterday and around 500 mL so far today since overnight. GENERAL: The patient is awake, alert and oriented times three, sitting in the bed in no apparent distress. HEAD/NECK: Extraocular muscles intact, pupils equal, round, reactive to light. Neck is supple. There is no jugular venous distention (JVD). CARDIOVASCULAR: S1, S2, regular rate, no murmurs, rubs, gallops. RESPIRATORY: Chest is clear to auscultation bilaterally, bilateral equal air entry. No rales or rhonchi. ABDOMEN: Soft, positive bowel sounds, nontender. No ascites, no organomegaly. EXTREMITIES: No clubbing, cyanosis. Pulses are 2+. No edema of the bilateral lower extremities. CENTRAL NERVOUS SYSTEM (KETTLE LOADER): No focal neurological deficit. Power is 5/5 in all extremities. LABORATORY DATA: CBC showed a WBC 9.4, hemoglobin 10.7, platelets 246. BMP shows sodium 134, potassium 4, chloride 97, bicarbonate 27, BUN 15, creatinine 0.7, calcium 8.9, phosphorus 3, albumin 3.1. CURRENT MEDICATIONS: The patient's current medications are all reviewed by me. His salt tablet was stopped by me today. ASSESSMENT: 81-year-old male with past medical history of hypertension, coronary artery disease, chronic pulmonary obstructive disease, history of alcohol abuse admitted this time with symptomatic hyponatremia and now he is found to have right upper lobe lung mass. PLAN: 1. Hypernatremia. The patient's sodium is staying stable at 133-134 with current dose of Lasix 20 mg by mouth twice a day. He was also on a salt tablet; however, I am going to stop the salt tablet and monitor him without salt on the current dose of Lasix. If his sodium stays stable at around 133-134 he can be just observed as an outpatient. 2. Right upper lobe mass. Further workup including biopsy or PET scan is as per pulmonary service. It is possible that the patient might have syndrome of inappropriate secretion of antidiuretic hormone (SIADH) secondary to a right upper lobe mass. 3. Hypertension. Blood pressure is acceptable at this time. He is on amlodipine 5 mg by mouth daily. DISCHARGE PLANNING: The patient's sodium is stable. He can be discharged home on the current dose of Lasix. The patient can followup with the nephrology service as an outpatient.
[2016-07-18 14:00] VITALS: BP 110/67
--- NOTE | 2016-07-18 14:32 | IPN ---
DATE OF SERVICE: 07/18/2016 Mr. Gresham is seen this morning at his bedside. He is feeling well and continues to have some cough. Denies any hemoptysis or pleuritic type of chest pain. He was admitted with severe hyponatremia and during workup he has been diagnosed with right upper lobe lung mass. His sodium level has improved. He remains on fluid restriction and low-dose diuretic due to a prior leg edema. On physical examination, patient is awake and alert. Temperature 98.5 degrees Fahrenheit, heart at 98 per minute and respiratory rate 18 per minute. Blood pressure 105/70 mmHg and oxygen saturation 95% on room air. Head is atraumatic. Ears, nose and throat are unremarkable. Neck is supple and without jugular venous distention (JVD) or thyroid enlargement. Trachea is midline. Heart sounds are regular. Lungs with bilateral rhonchi. Abdomen soft and nontender and without any palpable organomegaly. Bowel sounds are normal. Extremities have no leg edema. There is no cyanosis or clubbing. Today's laboratories show sodium level 134 and potassium 3.5. BUN 13 and creatinine 0.75. PROBLEMS 1. Hyponatremia. Sodium level has improved and leveled off. The patient will remain on low-dose diuretic. His sodium supplement has already been stopped. 2. Hypokalemia. Potassium level is borderline low. The patient has been given a potassium supplement. 3. Peripheral edema. The patient is currently on Lasix 20 mg twice a day. I recommend to cut it down to 20 mg once a day. His volume status has improved. 4. Right upper lobe lung mass. The patient can have further workup as an outpatient. I do not feel that he needs to be in the hospital for it. DISPOSITION: From a renal standpoint, patient can be discharged to home and follow up with Dr. Levine as outpatient.
--- NOTE | 2016-07-18 14:39 | REP ---
Clinical: History of edema and thrombophlebitis. Technique: Real time calvillo scale and color Doppler evaluation using linear high frequency transducer. Findings: Nearly occlusive thrombus is identified within the distal cephalic vein extending into the antecubital fossa at the site of maximal edema. Visualized left jugular vein, subclavian, axillary, brachial and basilic veins are all patent and normal in appearance demonstrating normal venous wave patterns and velocities. Impression: Thrombus involving the distal cephalic vein extending to the antecubital fossa. Signed by Delano Martinez MD 07/18/2016 02:31 P
[2016-07-18] MEDS ORDERED: AMLO5TAB2 PO (15:34)
[2016-07-18] MEDS ORDERED: FURO20TA2 PO (15:34)
[2016-07-18] MEDS ORDERED: FERR325T PO (15:34)
--- NOTE | 2016-07-18 19:54 | DSES ---
DATE OF ADMISSION: 07/13/2016 DATE OF DISCHARGE: 07/18/2016 ATTENDING PHYSICIAN: Dr. Topher Garvin PRIMARY CARE PROVIDER: At the [facility] REFERRING PHYSICIAN: None. CONSULTING PHYSICIAN: Dr. Levine. CONDITION ON DISCHARGE: Stable. 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 PROCEDURES: None. HISTORY OF PRESENT ILLNESS: Patient is an 81-year-old male with past medical history of chronic obstructive pulmonary disease, small bowel obstruction secondary to adhesion, coronary disease, diastolic coronary artery bypass graft, hypertension, dyslipidemia, colorectal cancer, perforated ulcer, history of hyponatremia who presented to the emergency room with complaints of fatigue, anxiety, and alcohol abuse. Patient was noted to have anxiety at home and took alcohol to help control it. Patient had complained of (cut off). In the emergency room, patient was found to have a very low sodium and was admitted for severe hyponatremia. HOSPITAL COURSE: 1. Hyponatremia possible secondary to syndrome of inappropriate secretion of antidiuretic hormone, possible secondary to malignancy, possibly secondary to beer potomania. He had no signs of confusion or altered mental status, no seizure episodes, no focal weakness. Chest CT on 07/16 revealed 3 cm central right lung mass with cavitary changes and encasing of the right upper lung bronchus consistent with primary lung malignancy. No evidence of pneumonia. Sodium on admission was 117 and has improved. He was put on Lasix and salt tabs. Patient was initially started with high dose Lasix about 40 twice a day, then brought down to 20 twice a day and ultimately he was discharged home with Lasix 20 every day. Nephrology was consulted, Dr. Levine and Dr. Tripp have been following the patient. We appreciate their input. 2. 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 He has an extensive smoking history of about [address] more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 I discussed the case with Dr. Siu and we have arranged for outpatient follow up for this patient to follow up as an outpatient for additional imaging and/or possible intervention. 3. Normocytic anemia. B12 and folic are adequate. Reticular index of 1.4 indicating hypoproliferative etiology. Iron panel was consistent with iron deficiency anemia status post iron sucrose 500 mg IV on 07/13. Will continue with ferrous sulfate 325 mg by mouth twice a day. 4. Abnormal thyroid function. TSH is normal. No elevation of Free T4. We will need to repeat thyroid function test as an outpatient. Thyroglobulin antibody has been negative. Outpatient follow up with ultrasound. 5. Alcohol abuse. Continue with folate, thiamine and multivitamin. Alcohol withdrawal precautions. Will continue to taper Serax. 6. Hypertension. Blood pressure well controlled. Continue with lisinopril, amlodipine with holding parameters. 7. Chronic obstructive pulmonary disease. Continue with DuoNeb's breathing treatment. 8. Insomnia. Continue with mirtazapine as needed. 9. Back pain. Continue with Ultram. 10. Anxiety. Continue with Celexa and atenolol. 11. Benign prostatic hyperplasia (BPH). Continue with tamsulosin and finasteride. 12. Dyslipidemia. Continue with Lipitor. 13. Difficulty swallowing. Patient had aspiration throughout the hospital course. Chest x-ray was negative for any infiltrates. CT chest did not reveal any pneumonia. Swallow evaluation was completed, did not reveal any aspiration. Continue with aspiration precautions. Diet was advanced and he is currently tolerating. 14. Coronary artery disease status post coronary artery bypass graft. Continue with aspirin, atenolol, Lipitor and lisinopril. 15. Deep vein thrombosis prophylaxis. Continue with Lovenox. DISCHARGE MEDICATIONS: Patient being discharged home with the following: - aspirin 81 mg by mouth daily - atenolol 25 mg by mouth daily - atorvastatin 10 mg by mouth daily - citalopram 20 mg by mouth daily - finasteride 5 mg by mouth daily - folic acid 1 mg by mouth daily - mirtazapine 30 mg by mouth at bedtime as needed sleep - multivitamin one tablet by mouth daily - nitroglycerin 0.4 mg SL - tamsulosin 0.4 mg by mouth every day - Tramadol 50 mg by mouth twice a day NEW MEDICATIONS PRESCRIBED: Include - amlodipine 5 mg by mouth every day - ferrous sulfate 325 mg by mouth twice a day - furosemide 20 mg by mouth every day DISCHARGE INSTRUCTIONS: Patient has been advised to follow up with his primary care provider and pulmonology within the next 1-2 weeks. He has been advised to remain compliant with treatment plan and medications and to return to the emergency room if he experiences problems. TIME SPENT ON DISCHARGE: 35 minutes.
[2016-07-19] MEDS ORDERED: FUROSEMIDE 20 MG TAB PO SCH (09:00)
[2016-07-22 00:06] LABS: ADH PANEL OSMOLALITY 249 mOsmol/kg (280-301); ANTI-DIURETIC HORMONE <0.8 pg/mL (0.0-4.7)
[2016-07-22 13:36] LABS: % OXIDATION POSITIVE NEUT See Separate Report
== END 2016-07-18 18:27 | disposition home or self-care (01) | DRG 181 ==
LOC: M ED 14:28 → M ED INP 19:39 → M PCU 23:17 → M MSPAV 07-14 21:39
PROVIDERS: ADMIT Internal Medicine; ATTEND Internal Medicine
DX: C34.90 Malignant neoplasm of unspecified part of unspecified bronchus or lung (principal); E22.2 Syndrome of inappropriate secretion of antidiuretic hormone; I50.30 Unspecified diastolic (congestive) heart failure; F17.200 Nicotine dependence, unspecified, uncomplicated; D64.9 Anemia, unspecified; I10 Essential (primary) hypertension; J44.9 Chronic obstructive pulmonary disease, unspecified; G47.00 Insomnia, unspecified; M54.9 Dorsalgia, unspecified; F41.9 Anxiety disorder, unspecified; N40.0 Benign prostatic hyperplasia without lower urinary tract symptoms; R94.6 Abnormal results of thyroid function studies; F10.10 Alcohol abuse, uncomplicated; E78.5 Hyperlipidemia, unspecified; E87.6 Hypokalemia; R60.9 Edema, unspecified; R13.10 Dysphagia, unspecified; D71 Functional disorders of polymorphonuclear neutrophils; I25.10 Atherosclerotic heart disease of native coronary artery without angina pectoris; Z79.82 Long term (current) use of aspirin; Z79.899 Other long term (current) drug therapy; Z95.1 Presence of aortocoronary bypass graft; Z85.038 Personal history of other malignant neoplasm of large intestine; Z90.3 Acquired absence of stomach [part of]; Z90.49 Acquired absence of other specified parts of digestive tract; Z83.3 Family history of diabetes mellitus; Z80.9 Family history of malignant neoplasm, unspecified

== ENCOUNTER → 2016-08-03 | Outpatient (CLI) | payer MEDICARE ==
[~2016-08-03] MED LIST changes: +ALBU83IN INH; +AMLO5TAB2 PO; +ATOR1TAB19 PO; +BENZ100C5 PO; +FERR325T PO; +FURO20TA2 PO
--- NOTE | 2016-08-03 20:01 | REP ---
PET/CT: History: Initial staging lung mass. Comparisons: Comparison chest CT 16 July 2016. TECHNIQUE: 62 minutes following the intravenous injection of a 7.6 mCi dose of F-18 FDG, three-dimensional PET scintigraphy is acquired from the skull base to the proximal thighs. Triplanar noncontrast CT scanning is acquired through the same anatomic range for attenuation correction, and image registration with scan parameters optimized to minimize radiation exposure to the patient. PET scintigraphy and CT datasets were fused and displayed on a workstation with multiplanar and projection display capability. PET/CT Findings: The known right suprahilar cavitary lung mass is quite hypermetabolic. Maximum SUV value within this lesion is 13.4. There is a hypermetabolic jeancarlos focus adjacent to the right mediastinum with maximum SUV value 11.2. This jeancarlos focus measures 1.6 cm in greatest diameter. It is adjacent to the superior vena cava right atrial junction. No other hilar or mediastinal hypermetabolic focus is seen. There is a patchy new area of infiltrative density in the left upper lobe. The superior aspect of this infiltrate is somewhat nodular. There is discernible mildly hypermetabolic uptake within this infiltrate. Maximum SUV value 2.9. This is new when compared with the recent prior study of July 16, 2016 and it is felt to be most compatible with an area of inflammatory pneumonia. There is also a new pricilla bronchovascular infiltrate in the right upper lobe compared to the recent prior study. No FDG accumulation is seen within this area. No other abnormal hypermetabolic uptake is seen within the lung parenchyma. No adrenal hypermetabolic uptake is seen. No abnormal skeletal hypermetabolic uptake is seen. Head and neck soft tissues are unremarkable. There are surgical clips in the upper abdomen and the patient has undergone prior median sternotomy. Prominent vascular calcification is noted. There is an infrarenal abdominal aortic aneurysm measuring 3.1 cm. No abnormal abdominal or pelvic hypermetabolic uptake is seen. 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 There is evidence of a new infiltrate in the left upper lobe, which shows minimally hypermetabolic uptake suggesting pneumonia. There is also a new infiltrate developing in the right upper lobe. Signed by Arpit Prabhakar MD 08/04/2016 09:23 A
== END ==
LOC: M RAD 14:37
PROVIDERS: ATTEND Internal Medicine Pulmonary Disease
DX: R91.8 Other nonspecific abnormal finding of lung field (principal); C34.90 Malignant neoplasm of unspecified part of unspecified bronchus or lung
CPT/HCPCS: 78815; A9552

== ENCOUNTER 2016-08-07 14:16 | Emergency (ER) | payer MEDICAID, MEDICARE ==
[~2016-08-07 14:16] MED LIST changes: -ALBU83IN INH; -BENZ100C5 PO
[2016-08-07] MEDS ORDERED: FUROSEMIDE 20 MG/2 ML VIAL (J1940) As Ordered ONE (15:15)
[2016-08-07 16:16] LABS: ALBUMIN 3.2 GM/DL (3.2-5.2); ALKALINE PHOSPHATASE 116 U/L (45-117); ALT/SGPT 24 U/L (12-78); ANION GAP 7 MEQ/L (8-16); AST/SGOT 17 U/L (15-37); BILIRUBIN,DIRECT 0.1 MG/DL (0.0-0.2); BILIRUBIN,TOTAL 0.3 MG/DL (0.2-1.0); BLOOD UREA NITROGEN 23 MG/DL (7-18); CALCIUM LEVEL 8.2 MG/DL (8.8-10.2); CARBON DIOXIDE LEVEL 30 MEQ/L (21-32); CHLORIDE LEVEL 104 MEQ/L (98-107); GLOMERULAR FILTRATION RATE > 60.0 (>35); GLUCOSE, FASTING 98 MG/DL (83-110); POTASSIUM SERUM 4.2 MEQ/L (3.5-5.1); SODIUM LEVEL 141 MEQ/L (136-145); TOTAL PROTEIN 7.2 GM/DL (6.4-8.2)
[2016-08-07 16:20] LABS: BASO % 0.3 % (0.0-1.0); EOS # 0.2 K/mm3 (0.0-0.50); EOS % 2.3 % (0.0-3.0); LARGE UNSTAINED CELL # 0.3 K/mm3 (0.0-0.4); LARGE UNSTAINED CELL % 3.4 % (0.0-4.0); LYMPH # 1.9 K/mm3 (1.5-4.5); MEAN CORPUSCULAR HEMOGLOBIN 29.3 pg (27.0-33.0); MEAN CORPUSCULAR HGB CONC 33.6 g/dl (32.0-36.5); MEAN CORPUSCULAR VOLUME 87.3 fl (80.0-96.0); MONO # 0.5 K/mm3 (0.0-0.8); MONO % 5.7 % (0.0-5.0); NEUTROPHILS # 5.4 K/mm3 (1.8-7.7); NEUTROPHILS % 65.4 % (36.0-66.0); PLATELET COUNT, AUTOMATED 227 k/mm3 (150-450); RED CELL DISTRIBUTION WIDTH 15.8 % (11.5-14.5); WHITE BLOOD COUNT 8.2 K/mm3 (4.0-10.0)
[2016-08-07] MEDS ORDERED: ACETAMINOPHEN 325 MG TAB As Ordered ONE (16:48)
--- NOTE | 2016-08-07 17:19 | EDDOCDS ---
Physician Documentation [facility] Name: Clint Gresham Age: 81 yrs Sex: Male : 1935 Arrival Date: 08/07/2016 Time: 14:16 Bed 5 Private MD: [facility] Disposition: 08/07/16 16:58 Discharged to Home/Self Care. Impression: Edema, unspecified, Acute combined systolic (congestive) and diastolic (congestive) heart failure. - Condition is Stable. - Discharge Instructions: Heart Failure, Edema. - Medication Reconciliation, Local Pharmacy Hours form. - Follow up: [facility]; When: 2 - 3 days; Reason: Recheck today's complaints, Continuance of care. - Problem is an ongoing problem. - Symptoms have improved. Historical: - Allergies: no known allergies; - Home Meds: 1. aspirin 81 mg oral tab 2. atenolol 25 mg oral tab 1 tab once daily 3. atorvastatin 10 mg oral tab 1 tab once daily 4. citalopram 20 mg Oral tab 1 tab once daily 5. finasteride 5 mg oral tab 1 tab once daily 6. multivitamin Oral cap 1 tablet daily 7. tamsulosin 0.4 mg oral cp24 1 cap once daily 8. tramadol 50 mg Oral tab twice a day 9. ferrous sulfate 325 mg (65 mg iron) Oral cpER twice a day 10. Lasix 20 mg oral tab 2 times per day 11. mirtazapine 30 mg Oral tab once daily 12. nitroglycerin 0.4 mg SL subl 1 tab every 5 minutes - PMHx: bowel obstruction; Cancer, Colon; COPD; Hypercholesterolemia; Hypertension; ulcers; - PSHx: Cholecystectomy; back surgery; perforated ulcer; Colon Resection; - Social history: Smoking status: Patient states former smoker of tobacco. No barriers to communication noted, The patient speaks fluent Gabonese. - Family history: Not pertinent. - : The pt / caregiver states he / she is not on anticoagulants. Home medication list is obtained from the patient. - Exposure Risk Screening:: None identified. Vital Signs: 08/07 14:17 BP 143 / 68; Pulse 65; Resp 22; Temp 97.6(O); Pulse Ox 98% on R/A; elp 14:48 BP 124 / 58 (auto/); ttb 14:48 Pulse 58 MON; Resp 22; Pulse Ox 94% on R/A; Pain 0/10; ttb 15:55 Pulse 58 MON; Resp 20; Pulse Ox 95% on R/A; Pain 0/10; ttb 16:44 BP 114 / 69 (auto/); ttb 16:44 Pulse 58 MON; Pulse Ox 93% on R/A; ttb 16:52 Pulse 60 MON; Resp 18; Pulse Ox 98% on 2 lpm NC; Pain 3/10; ttb 16:55 Resp 18; ttb 17:07 BP 124 / 66 (auto/); ttb 17:07 Pulse 58 MON; Resp 18; Temp 98.1(TE); Pulse Ox 97% on R/A; Pain 2/10; ttb MDM: 15:13 -Blood Culture (Adults Only), peripheral from different site, or from device/port/PICC ke etc. if present ordered. 15:13 Weapons System Instrument Mechanic/Pulse Ox/q 15 min VS ordered. ke 15:13 IV Saline Lock ordered. ke 15:13 Oxygen at 4L/Min NC or Home dosage ordered. ke 15:13 Rhythm Strip to chart ordered. ke 15:13 Furosemide 60 mg IVP once ordered. ke 15:14 B-Type Natiuretic Peptide Ordered. EDMS 15:14 Basic Metabolic Profile Ordered. EDMS 15:14 CBC with Diff Ordered. EDMS 15:14 Cardiac Injury Profile Ordered. EDMS 15:14 Troponin Ordered. EDMS 15:15 Chest, 2 View (pa\E\lat) Ordered. EDMS 15:15 ECG WITH READING ER PHYS+CARDIAG ordered. EDMS 15:18 -Blood Culture (Adults Only), peripheral from different site, or from device/port/PICC deg etc. if present complete. 15:29 ETHYL ALCOHOL (ETHANOL) Ordered. EDMS 15:29 LIVER PROFILE Ordered. EDMS 16:24 B-Type Natiuretic Peptide Reviewed. ke 16:24 Basic Metabolic Profile Reviewed. ke 16:24 CBC with Diff Reviewed. ke 16:24 LIVER PROFILE Reviewed. ke 16:24 Cardiac Injury Profile Reviewed. ke 16:24 Troponin Reviewed. ke 16:24 ETHYL ALCOHOL (ETHANOL) Reviewed. ke 16:47 Acetaminophen Tablet 650 mg PO once ordered. ke 17:04 Financial registration complete. zo 17:10 [facility] Payment Agreement was scanned into [employer] and attached to record. zo Administered Medications: 15:57 Drug: Furosemide 60 mg [furosemide 10 mg/mL injection solution (6 mL)] Route: IVP; ttb Site: right antecubital; 16:55 Follow up: Resp 18 bpm; Response: No Adverse Reaction ttb 16:53 Drug: Acetaminophen 650 mg [acetaminophen 325 mg tablet (2 tabs)] Route: PO; ttb Signatures: Dispatcher [employer] EDMS Adriana Noyola, Wrapper Layer And Examiner Soft Work Unit deg Cooper Holden, BASE PLY HAND BASE PLY HAND Wilda Claire Rosemary,RN RN rs3 Shannon Hoskins, RN RN ttb The chart was reviewed and I authenticate all verbal orders and agree with the evaluation and treatment provided.Corrections: (The following items were deleted from the chart) 15:27 15:18 BLOOD CULTURES ordered. EDMS EDMS 15:29 15:26 ETHYL ALCOHOL (ETHANOL)+LAB ordered. EDMS EDMS 15:29 15:26 LIVER PROFILE+LAB ordered. EDMS EDMS Attachments: 17:10 [facility] Payment Agreement zo [id number]
--- NOTE | 2016-08-07 17:19 | EDDOCDS ---
Nurse's Notes [facility] Name: Clint Gresham Age: 81 yrs Sex: Male : 1935 Arrival Date: 08/07/2016 Time: 14:16 Bed 5 Private MD: DC [place] Diagnosis: Edema, unspecified;Acute combined systolic (congestive) and diastolic (congestive) heart failure Presentation: 08/07 14:22 Presenting complaint: son states that bilateral pedal edema. Lasix was increased from rs3 20 mg to 40 mg on the . noticed increased breathing difficulty and urinating less than usual. Adult Sepsis Screening: The patient does not have new or worsening altered mentation. Patient's respiratory rate is less than 22. Systolic blood pressure is greater than 100. Patient has a qSOFA score of 0- Negative Sepsis Screen. Suicide/Homicide risk assessment- the patient denies having any suicidal and/or homicidal ideations and does not present with any other emotional, behavioral or mental health complaints. 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 Transition of care: patient was not received from another setting of care. 14:22 Acuity: NADJA Level 3 rs3 14:22 Method Of Arrival: Walkin/Carried/Asstd rs3 Triage Assessment: 14:30 General: Appears in no apparent distress. Pain: Denies pain. Respiratory: Onset: The rs3 symptoms/episode began/occurred gradually. Historical: - Allergies: no known allergies; - Home Meds: 1. aspirin 81 mg oral tab 2. atenolol 25 mg oral tab 1 tab once daily 3. atorvastatin 10 mg oral tab 1 tab once daily 4. citalopram 20 mg Oral tab 1 tab once daily 5. finasteride 5 mg oral tab 1 tab once daily 6. multivitamin Oral cap 1 tablet daily 7. tamsulosin 0.4 mg oral cp24 1 cap once daily 8. tramadol 50 mg Oral tab twice a day 9. ferrous sulfate 325 mg (65 mg iron) Oral cpER twice a day 10. Lasix 20 mg oral tab 2 times per day 11. mirtazapine 30 mg Oral tab once daily 12. nitroglycerin 0.4 mg SL subl 1 tab every 5 minutes - PMHx: bowel obstruction; Cancer, Colon; COPD; Hypercholesterolemia; Hypertension; ulcers; - PSHx: Cholecystectomy; back surgery; perforated ulcer; Colon Resection; - Social history: Smoking status: Patient states former smoker of tobacco. No barriers to communication noted, The patient speaks fluent Zimbabwean. - Family history: Not pertinent. - : The pt / caregiver states he / she is not on anticoagulants. Home medication list is obtained from the patient. - Exposure Risk Screening:: None identified. Screenin:48 Screening information is obtained from the patient. Fall risk: No risks identified. ttb Assistance ADL's: requires no assistance with activities of daily living. Abuse/DV Screen: The patient / caregiver reports he/she is: not in a situation that causes fear, pain or injury. Nutritional screening: No deficits noted. Advance Directives: Currently, there is no health care proxy. home support is adequate. Assessment: 14:52 Adult Sepsis Screening: The patient does not have new or worsening altered mentation. ttb Patient has a respiratory rate of greater than or equal to 22 (1 point). Systolic blood pressure is greater than 100. Patient has a qSOFA score of 1- Negative Sepsis Screen. General: Behavior is appropriate for age, cooperative, pleasant. Pain: Denies pain. Neurological: Level of Consciousness is awake, alert. Cardiovascular: Heart tones S1 S2 present Chest pain is denied. Respiratory: Airway is patent Respiratory effort is even, unlabored, Respiratory pattern is regular, symmetrical, Breath sounds are clear in right posterior upper lobe and right posterior middle lobe Breath sounds with rhonchi in left posterior upper lobe and left posterior lower lobe Reports shortness of breath gradually worsening over past few days per son. NAD noted while pt sitting on stretcher. the patient has mild shortness of breath Denies cough. GI: Bowel sounds present X 4 quads. Denies constipation, diarrhea, nausea, vomiting, pain. Derm: Skin is normal. 15:57 General: Appears in no apparent distress, comfortable. Cardiovascular: Chest pain is ttb denied. Respiratory: Airway is patent Respiratory effort is even, unlabored. 16:53 Reassessment: Patient appears in no apparent distress at this time. Patient states ttb symptoms have improved. pt complains of "sinus headache". Tylenol give per orders.. General: Appears in no apparent distress, comfortable. Pain: Location: head. Neurological: Level of Consciousness is awake, alert. Respiratory: Airway is patent. 17:12 Adult Sepsis Screening: The patient does not have new or worsening altered mentation. ttb Patient's respiratory rate is less than 22. Systolic blood pressure is greater than 100. Patient has a qSOFA score of 0- Negative Sepsis Screen. General: Behavior is cooperative, pleasant. General: pt states he feels better since arrival. Large amt of urine out at this time. Headache improved.. Neurological: Level of Consciousness is awake, alert. Cardiovascular: Rhythm is sinus rhythm Chest pain is denied. Respiratory: Airway is patent Respiratory effort is even, unlabored, Denies cough, shortness of breath. Vital Signs: 14:17 BP 143 / 68; Pulse 65; Resp 22; Temp 97.6(O); Pulse Ox 98% on R/A; elp 14:48 BP 124 / 58 (auto/); ttb 14:48 Pulse 58 MON; Resp 22; Pulse Ox 94% on R/A; Pain 0/10; ttb 15:55 Pulse 58 MON; Resp 20; Pulse Ox 95% on R/A; Pain 0/10; ttb 16:44 BP 114 / 69 (auto/); ttb 16:44 Pulse 58 MON; Pulse Ox 93% on R/A; ttb 16:52 Pulse 60 MON; Resp 18; Pulse Ox 98% on 2 lpm NC; Pain 3/10; ttb 16:55 Resp 18; ttb 17:07 BP 124 / 66 (auto/); ttb 17:07 Pulse 58 MON; Resp 18; Temp 98.1(TE); Pulse Ox 97% on R/A; Pain 2/10; ttb Vitals: 14:17 Log In Time: August 07, 2016 at 14:15. [facility] ED Course: 14:17 Patient visited by Pastora Sparks PCA. elp 14:17 [facility] is Private Physician. elp 14:17 Patient moved to Waiting elp 14:18 Patient visited by Pastora Sparks PCA. elp 14:18 Patient moved to Pre E jjr 14:25 Triage Initiated rs3 14:35 Radha Chaudhry,RN is Primary Nurse. ms18 14:35 Patient moved to 5 ms18 14:48 The patient / caregiver is instructed regarding the plan of care and ED course. ttb Accompanied by Family Member, Patient has correct armband on for positive identification. Placed in gown. Bed in low position. Call light in reach. Side rails up X2. equipment monitor phototypesetting on. Pulse ox on. NIBP on. 14:55 Patient visited by Shannon Hoskins RN. ttb 14:59 Cooper Holden FNP [facility]. ke 14:59 Patient visited by Cooper Holden FNP. ke 14:59 Patient visited by Cooper Holden FNP. ke 15:25 Patient visited by Cooper Holden FNP. ke 15:37 EKG done. (by ED staff). Reviewed by Cooper GOINS. rn1 15:45 Inserted saline lock: 20 gauge in right antecubital area and blood collected. The kc3 patient tolerated the procedure well. Labs drawn. (by ED staff). Sent per order to lab. 15:46 LIVER PROFILE Sent. kc3 15:46 ETHYL ALCOHOL (ETHANOL) Sent. kc3 15:46 B-Type Natiuretic Peptide Sent. kc3 15:46 Basic Metabolic Profile Sent. kc3 15:46 CBC with Diff Sent. kc3 15:46 Cardiac Injury Profile Sent. kc3 15:46 Troponin Sent. kc3 15:50 Patient visited by Cooper Holden FNP. ke 15:55 No procedures done that require assistance. Labs drawn. (by ED staff). ttb 15:58 Primary Nurse role handed off by Radha Chaudhry RN deg 15:58 Patient visited by Shannon Hoskins RN. ttb 16:23 Patient visited by Cooper Holden FNP. ke 16:55 Patient visited by Shannon Hoskins RN. ttb 16:55 Patient visited by Shannon Hoskins RN. ttb 16:57 [facility] is Referral Physician. ke 17:07 Discontinued IV lock intact, bleeding controlled, pressure dressing applied, No ttb redness/swelling at site. 17:10 [facility] [place] Agreement was scanned into [employer] and attached to record. zo Administered Medications: 15:57 Drug: Furosemide 60 mg [furosemide 10 mg/mL injection solution (6 mL)] Route: IVP; ttb Site: right antecubital; 16:55 Follow up: Resp 18 bpm; Response: No Adverse Reaction ttb 16:53 Drug: Acetaminophen 650 mg [acetaminophen 325 mg tablet (2 tabs)] Route: PO; ttb Output: 16:55 Urine: 850.00ml (Voided); Total: 850.00ml. ttb 17:07 Urine: 800.00ml (Voided); Total: 1650.00ml. ttb Order Results: Lab Order: B-Type Natiuretic Peptide; SPEC'M 08/07/16 15:43 Test: BRAIN NATRIURETIC PEPTIDE; Value: 336; Range: <100; Abnormal: Above high normal; Units: PG/ML; Status: F Lab Order: Basic Metabolic Profile; SPEC' 08/07/16 15:43 Test: GLUCOSE, FASTING; Value: 98; Range: 83-110; Units: MG/DL; Status: F Test: BLOOD UREA NITROGEN; Value: 23; Range: 7-18; Abnormal: Above high normal; Units: MG/DL; Status: F Test: CREATININE FOR GFR; Value: 0.90; Range: 0.70-1.30; Units: MG/DL; Status: F Test: GLOMERULAR FILTRATION RATE; Value: > 60.0; Range: >35; Status: F Test: SODIUM LEVEL; Value: 141; Range: 136-145; Units: MEQ/L; Status: F Test: POTASSIUM SERUM; Value: 4.2; Range: 3.5-5.1; Units: MEQ/L; Status: F Test: CHLORIDE LEVEL; Value: 104; Range: 98-107; Units: MEQ/L; Status: F Test: CARBON DIOXIDE LEVEL; Value: 30; Range: 21-32; Units: MEQ/L; Status: F Test: ANION GAP; Value: 7; Range: 8-16; Abnormal: Below low normal; Units: MEQ/L; Status: F Test: CALCIUM LEVEL; Value: 8.2; Range: 8.8-10.2; Abnormal: Below low normal; Units: MG/DL; Status: F Test Note: ; Units are mL/min/1.73 m2 Chronic Kidney Disease Staging per NKF: Stage I & II GFR >=60 Normal to Mildly Decreased Stage III GFR 30-59 Moderately Decreased Stage IV GFR 15-29 Severely Decreased Stage V GFR <15 Very Little GFR Left ESRD GFR <15 on SHOP SERVICE TECHNICIAN Lab Order: CBC with Diff; SPEC'M 08/07/16 15:43 Test: WHITE BLOOD COUNT; Value: 8.2; Range: 4.0-10.0; Units: K/mm3; Status: F Test: RED BLOOD COUNT; Value: 3.29; Range: 4.30-6.10; Abnormal: Below low normal; Units: M/mm3; Status: F Test: HEMOGLOBIN; Value: 9.6; Range: 14.0-18.0; Abnormal: Below low normal; Units: g/dl; Status: F Test: HEMATOCRIT; Value: 28.7; Range: 42.0-52.0; Abnormal: Below low normal; Units: %; Status: F Test: MEAN CORPUSCULAR VOLUME; Value: 87.3; Range: 80.0-96.0; Units: fl; Status: F Test: MEAN CORPUSCULAR HEMOGLOBIN; Value: 29.3; Range: 27.0-33.0; Units: pg; Status: F Test: MEAN CORPUSCULAR HGB CONC; Value: 33.6; Range: 32.0-36.5; Units: g/dl; Status: F Test: RED CELL DISTRIBUTION WIDTH; Value: 15.8; Range: 11.5-14.5; Abnormal: Above high normal; Units: %; Status: F Test: PLATELET COUNT, AUTOMATED; Value: 227; Range: 150-450; Units: k/mm3; Status: F Test: NEUTROPHILS %; Value: 65.4; Range: 36.0-66.0; Units: %; Status: F Test: LYMPH %; Value: 23.0; Range: 24.0-44.0; Abnormal: Below low normal; Units: %; Status: F Test: MONO %; Value: 5.7; Range: 0.0-5.0; Abnormal: Above high normal; Units: %; Status: F Test: EOS %; Value: 2.3; Range: 0.0-3.0; Units: %; Status: F Test: BASO %; Value: 0.3; Range: 0.0-1.0; Units: %; Status: F Test: LARGE UNSTAINED CELL %; Value: 3.4; Range: 0.0-4.0; Units: %; Status: F Test: NEUTROPHILS #; Value: 5.4; Range: 1.8-7.7; Units: K/mm3; Status: F Test: LYMPH #; Value: 1.9; Range: 1.5-4.5; Units: K/mm3; Status: F Test: MONO #; Value: 0.5; Range: 0.0-0.8; Units: K/mm3; Status: F Test: EOS #; Value: 0.2; Range: 0.0-0.50; Units: K/mm3; Status: F Test: BASO #; Value: 0.0; Range: 0.0-0.2; Units: K/mm3; Status: F Test: LARGE UNSTAINED CELL #; Value: 0.3; Range: 0.0-0.4; Units: K/mm3; Status: F Lab Order: Cardiac Injury Profile; SPEC' 08/07/16 15:43 Test: CPK CREATINE PHOSPHOKINASE; Value: 63; Range: 39-308; Units: U/L; Status: F Test: CK-MB VALUE MASS; Value: 1.7; Range: 0.0-3.6; Units: NG/ML; Status: F Test: MB/CK RELATIVE INDEX; Value: 2.69; Range: < OR =4; Status: F Test Note: ; DIAGNOSIS CRITERIA MMB ng/ml Relative Index (RI) NON-AMI < or = 5 N/A BARBOZA ZONE > 5 < or = 4 AMI > 5 > 4 Lab Order: Troponin; SPEC' 08/07/16 15:43 Test: TROPONIN I; Value: < 0.02; Range: < 0.10; Units: NG/ML; Status: F Test Note: ; Troponin I Reference Interval for AirXpanders LOCI: 99th Percentile= 0.00-0.045 ng/ml Risk Stratification: <= 0.10 ng/ml Decreased Risk for Adverse Clinical Events. 0.10-1.50 ng/ml Increased Risk for Adverse Clinical Events. Evaluation of additional criterion and/or repeat testing in 2-6 hours is suggested to rule out myocardial damage. >= 1.50 ng/ml Indicative of Myocardial Injury. Lab Order: ETHYL ALCOHOL (ETHANOL); SPEC' 08/07/16 15:43 Test: ETHYL ALCOHOL (ETHANOL); Value: < 0.003; Range: 0.000-0.010; Units: %; Status: F Lab Order: LIVER PROFILE; SPEC'M 08/07/16 15:43 Test: AST/SGOT; Value: 17; Range: 15-37; Units: U/L; Status: F Test: ALT/SGPT; Value: 24; Range: 12-78; Units: U/L; Status: F Test: ALKALINE PHOSPHATASE; Value: 116; Range: 45-117; Units: U/L; Status: F Test: BILIRUBIN,TOTAL; Value: 0.3; Range: 0.2-1.0; Units: MG/DL; Status: F Test: BILIRUBIN,DIRECT; Value: 0.1; Range: 0.0-0.2; Units: MG/DL; Status: F Test: TOTAL PROTEIN; Value: 7.2; Range: 6.4-8.2; Units: GM/DL; Status: F Test: ALBUMIN; Value: 3.2; Range: 3.2-5.2; Units: GM/DL; Status: F Test: ALBUMIN/GLOBULIN RATIO; Value: 0.80; Range: 1.00-1.93; Abnormal: Below low normal; Status: F Outcome: 16:58 Discharge ordered by Provider. ke 17:07 Discharge Assessment: Patient awake and alert. patient administered narcotics - no. The ttb following High Risk Discharge criteria are identified: None. Discharged to home ambulatory, with family. Condition: good Condition: stable Condition: improved. Discharge instructions given to patient, family, Instructed on discharge instructions, follow up and referral plans. medication usage, diet, Demonstrated understanding of instructions, medications, Pt was receptive of discharge instructions/ teaching. No special radiology studies were completed. Property :Personal belongings accompany Pt. 17:18 Patient left the ED. ttb Signatures: Adriana Noyola, Communication Skills Instructor Unit deg Cooper Holden, MORTGAGE PROCESSOR MORTGAGE PROCESSOR Wilda Claire Jessica RN RN Shira Ellis RN RN rs3 Shannon Hoskins RN RN ttb Pastora Sparks, GREG PRINTED CIRCUIT BOARDS PLASMA ETCHER Dagmar Sinha RN RN ms18 Gurmeet, Pratik rn1 Josie Plascencia,JT RN kc3 MTDD
--- NOTE | 2016-08-08 11:24 | REP ---
PA and lateral chest: Comparison is 01/04/2013. Stable granulomas are noted in both the lung vega, unchanged. There are no acute infiltrates or effusions. Cardiac size is normal. Sternotomy wires are again noted. I suspect there has been interim enlargement of the right hilus. The patient had a recent chest CT dated 07/16/2016 that identified a 3 cm cavitary mass medially in the right upper lobe with encasement of the right upper lobe bronchus consistent with primary lung carcinoma. Recommend PET scan for further evaluation. Signed by Quoc Morris MD 08/07/2016 04:45 P
--- NOTE | 2016-08-08 20:33 | ECGEPIP ---
Stationary ECG Study [facility] - ED Test Date: 2016-08-07 Pat Name: KAREEN SHARMA Department: Room: - Gender: M Endocrinologist: rn : 1935 Requested By: SHOAIB GOINS Order Number: [id number] Reading MD: Valentine Suero Measurements Intervals [place] Rate: 57 P: 90 AK: 206 QRS: 4 QRSD: 90 T: 27 QT: 463 QTc: 452 Interpretive Statements SINUS BRADYCARDIA NSTTW ABNORMALITY DECREASED RATE 07/12/16 Electronically Signed On 08-08-2016 20:32:28 EST by Valentine Suero
--- NOTE | 2016-08-09 18:19 | EDDOCDS ---
Physician Documentation [facility] Name: Clint Gresham Age: 81 yrs Sex: Male : 1935 Arrival Date: 08/07/2016 Time: 14:16 Bed 5 Private MD: [facility] Disposition: 08/07/16 16:58 Discharged to Home/Self Care. Impression: Edema, unspecified, Acute combined systolic (congestive) and diastolic (congestive) heart failure. - Condition is Stable. - Discharge Instructions: Heart Failure, Edema. - Medication Reconciliation, Local Pharmacy Hours form. - Follow up: [facility]; When: 2 - 3 days; Reason: Recheck today's complaints, Continuance of care. - Problem is an ongoing problem. - Symptoms have improved. Historical: - Allergies: no known allergies; - Home Meds: 1. aspirin 81 mg oral tab 2. atenolol 25 mg oral tab 1 tab once daily 3. atorvastatin 10 mg oral tab 1 tab once daily 4. citalopram 20 mg Oral tab 1 tab once daily 5. finasteride 5 mg oral tab 1 tab once daily 6. multivitamin Oral cap 1 tablet daily 7. tamsulosin 0.4 mg oral cp24 1 cap once daily 8. tramadol 50 mg Oral tab twice a day 9. ferrous sulfate 325 mg (65 mg iron) Oral cpER twice a day 10. Lasix 20 mg oral tab 2 times per day 11. mirtazapine 30 mg Oral tab once daily 12. nitroglycerin 0.4 mg SL subl 1 tab every 5 minutes - PMHx: bowel obstruction; Cancer, Colon; COPD; Hypercholesterolemia; Hypertension; ulcers; - PSHx: Cholecystectomy; back surgery; perforated ulcer; Colon Resection; - Social history: Smoking status: Patient states former smoker of tobacco. No barriers to communication noted, The patient speaks fluent Swiss. - Family history: Not pertinent. - : The pt / caregiver states he / she is not on anticoagulants. Home medication list is obtained from the patient. - Exposure Risk Screening:: None identified. Vital Signs: 08/07 14:17 BP 143 / 68; Pulse 65; Resp 22; Temp 97.6(O); Pulse Ox 98% on R/A; elp 14:48 BP 124 / 58 (auto/); ttb 14:48 Pulse 58 MON; Resp 22; Pulse Ox 94% on R/A; Pain 0/10; ttb 15:55 Pulse 58 MON; Resp 20; Pulse Ox 95% on R/A; Pain 0/10; ttb 16:44 BP 114 / 69 (auto/); ttb 16:44 Pulse 58 MON; Pulse Ox 93% on R/A; ttb 16:52 Pulse 60 MON; Resp 18; Pulse Ox 98% on 2 lpm NC; Pain 3/10; ttb 16:55 Resp 18; ttb 17:07 BP 124 / 66 (auto/); ttb 17:07 Pulse 58 MON; Resp 18; Temp 98.1(TE); Pulse Ox 97% on R/A; Pain 2/10; ttb MDM: 15:13 -Blood Culture (Adults Only), peripheral from different site, or from device/port/PICC ke etc. if present ordered. 15:13 Tandem Operator/Pulse Ox/q 15 min VS ordered. ke 15:13 IV Saline Lock ordered. ke 15:13 Oxygen at 4L/Min NC or Home dosage ordered. ke 15:13 Rhythm Strip to chart ordered. ke 15:13 Furosemide 60 mg IVP once ordered. ke 15:14 B-Type Natiuretic Peptide Ordered. EDMS 15:14 Basic Metabolic Profile Ordered. EDMS 15:14 CBC with Diff Ordered. EDMS 15:14 Cardiac Injury Profile Ordered. EDMS 15:14 Troponin Ordered. EDMS 15:15 Chest, 2 View (pa\E\lat) Ordered. EDMS 15:15 ECG WITH READING ER PHYS+CARDIAG ordered. EDMS 15:18 -Blood Culture (Adults Only), peripheral from different site, or from device/port/PICC deg etc. if present complete. 15:29 ETHYL ALCOHOL (ETHANOL) Ordered. EDMS 15:29 LIVER PROFILE Ordered. EDMS 16:24 B-Type Natiuretic Peptide Reviewed. ke 16:24 Basic Metabolic Profile Reviewed. ke 16:24 CBC with Diff Reviewed. ke 16:24 LIVER PROFILE Reviewed. ke 16:24 Cardiac Injury Profile Reviewed. ke 16:24 Troponin Reviewed. ke 16:24 ETHYL ALCOHOL (ETHANOL) Reviewed. ke 16:47 Acetaminophen Tablet 650 mg PO once ordered. ke 17:04 Financial registration complete. zo 17:10 [facility] [place] Agreement was scanned into [employer] and attached to record. zo 22:07 T-Sheet-- Draft Copy was scanned into [employer] and attached to record. klr 08/08 12:21 ECG/EKG was scanned into [employer] and attached to record. gb 12:21 Trend VS was scanned into [employer] and attached to record. gb 13:22 ED course: [facility] faxed formal report of cxr. pt also sent certieid letter. needs fu ml mlg. Administered Medications: 08/07 15:57 Drug: Furosemide 60 mg [furosemide 10 mg/mL injection solution (6 mL)] Route: IVP; ttb Site: right antecubital; 16:55 Follow up: Resp 18 bpm; Response: No Adverse Reaction ttb 16:53 Drug: Acetaminophen 650 mg [acetaminophen 325 mg tablet (2 tabs)] Route: PO; ttb Signatures: Dispatcher [employer] EDMS Kristyn Valdivia MD MD ml Murray, Denise, Distribution System Operator Unit deg Maxwell, Massiel, Reg Reg gb Cooper Holden, PAPER COLORER PAPER COLORER Wilda Claire Rosemary,RN RN rs3 Shannon Hoskins RN RN ttb Shaniqua Scott The chart was reviewed and I authenticate all verbal orders and agree with the evaluation and treatment provided.Corrections: (The following items were deleted from the chart) 15:27 15:18 BLOOD CULTURES ordered. EDMS EDMS 15:29 15:26 ETHYL ALCOHOL (ETHANOL)+LAB ordered. EDMS EDMS 15:29 15:26 LIVER PROFILE+LAB ordered. EDMS EDMS Attachments: 17:10 [facility] Payment Agreement zo 22:07 T-Sheet-- Draft Copy r 08/08 12:21 ECG/EKG gb Chart Complete MTDD
--- NOTE | 2016-08-09 18:19 | EDDOCDS ---
Physician Documentation [facility] Name: Clint Gresham Age: 81 yrs Sex: Male : 1935 Arrival Date: 08/07/2016 Time: 14:16 Bed 5 Private MD: [facility] Disposition: 08/07/16 16:58 Discharged to Home/Self Care. Impression: Edema, unspecified, Acute combined systolic (congestive) and diastolic (congestive) heart failure. - Condition is Stable. - Discharge Instructions: Heart Failure, Edema. - Medication Reconciliation, Local Pharmacy Hours form. - Follow up: [facility]; When: 2 - 3 days; Reason: Recheck today's complaints, Continuance of care. - Problem is an ongoing problem. - Symptoms have improved. Historical: - Allergies: no known allergies; - Home Meds: 1. aspirin 81 mg oral tab 2. atenolol 25 mg oral tab 1 tab once daily 3. atorvastatin 10 mg oral tab 1 tab once daily 4. citalopram 20 mg Oral tab 1 tab once daily 5. finasteride 5 mg oral tab 1 tab once daily 6. multivitamin Oral cap 1 tablet daily 7. tamsulosin 0.4 mg oral cp24 1 cap once daily 8. tramadol 50 mg Oral tab twice a day 9. ferrous sulfate 325 mg (65 mg iron) Oral cpER twice a day 10. Lasix 20 mg oral tab 2 times per day 11. mirtazapine 30 mg Oral tab once daily 12. nitroglycerin 0.4 mg SL subl 1 tab every 5 minutes - PMHx: bowel obstruction; Cancer, Colon; COPD; Hypercholesterolemia; Hypertension; ulcers; - PSHx: Cholecystectomy; back surgery; perforated ulcer; Colon Resection; - Social history: Smoking status: Patient states former smoker of tobacco. No barriers to communication noted, The patient speaks fluent Jordanian. - Family history: Not pertinent. - : The pt / caregiver states he / she is not on anticoagulants. Home medication list is obtained from the patient. - Exposure Risk Screening:: None identified. Vital Signs: 08/07 14:17 BP 143 / 68; Pulse 65; Resp 22; Temp 97.6(O); Pulse Ox 98% on R/A; elp 14:48 BP 124 / 58 (auto/); ttb 14:48 Pulse 58 MON; Resp 22; Pulse Ox 94% on R/A; Pain 0/10; ttb 15:55 Pulse 58 MON; Resp 20; Pulse Ox 95% on R/A; Pain 0/10; ttb 16:44 BP 114 / 69 (auto/); ttb 16:44 Pulse 58 MON; Pulse Ox 93% on R/A; ttb 16:52 Pulse 60 MON; Resp 18; Pulse Ox 98% on 2 lpm NC; Pain 3/10; ttb 16:55 Resp 18; ttb 17:07 BP 124 / 66 (auto/); ttb 17:07 Pulse 58 MON; Resp 18; Temp 98.1(TE); Pulse Ox 97% on R/A; Pain 2/10; ttb MDM: 15:13 -Blood Culture (Adults Only), peripheral from different site, or from device/port/PICC ke etc. if present ordered. 15:13 Conditioner Tumbler Operator/Pulse Ox/q 15 min VS ordered. ke 15:13 IV Saline Lock ordered. ke 15:13 Oxygen at 4L/Min NC or Home dosage ordered. ke 15:13 Rhythm Strip to chart ordered. ke 15:13 Furosemide 60 mg IVP once ordered. ke 15:14 B-Type Natiuretic Peptide Ordered. EDMS 15:14 Basic Metabolic Profile Ordered. EDMS 15:14 CBC with Diff Ordered. EDMS 15:14 Cardiac Injury Profile Ordered. EDMS 15:14 Troponin Ordered. EDMS 15:15 Chest, 2 View (pa\E\lat) Ordered. EDMS 15:15 ECG WITH READING ER PHYS+CARDIAG ordered. EDMS 15:18 -Blood Culture (Adults Only), peripheral from different site, or from device/port/PICC deg etc. if present complete. 15:29 ETHYL ALCOHOL (ETHANOL) Ordered. EDMS 15:29 LIVER PROFILE Ordered. EDMS 16:24 B-Type Natiuretic Peptide Reviewed. ke 16:24 Basic Metabolic Profile Reviewed. ke 16:24 CBC with Diff Reviewed. ke 16:24 LIVER PROFILE Reviewed. ke 16:24 Cardiac Injury Profile Reviewed. ke 16:24 Troponin Reviewed. ke 16:24 ETHYL ALCOHOL (ETHANOL) Reviewed. ke 16:47 Acetaminophen Tablet 650 mg PO once ordered. ke 17:04 Financial registration complete. zo 17:10 [facility] [place] Agreement was scanned into [employer] and attached to record. zo 22:07 T-Sheet-- Draft Copy was scanned into [employer] and attached to record. klr 08/08 12:21 ECG/EKG was scanned into [employer] and attached to record. gb 12:21 Trend VS was scanned into [employer] and attached to record. gb 13:22 ED course: [facility] faxed formal report of cxr. pt also sent certieid letter. needs fu ml mlg. Administered Medications: 08/07 15:57 Drug: Furosemide 60 mg [furosemide 10 mg/mL injection solution (6 mL)] Route: IVP; ttb Site: right antecubital; 16:55 Follow up: Resp 18 bpm; Response: No Adverse Reaction ttb 16:53 Drug: Acetaminophen 650 mg [acetaminophen 325 mg tablet (2 tabs)] Route: PO; ttb Signatures: Dispatcher [employer] EDMS Kristyn Valdivia MD MD ml Murray, Denise, Spirits Model Unit deg Maxwell, Massiel, Reg Reg gb Cooper Holden, APPEALS COURT ASSOCIATE JUSTICE APPEALS COURT ASSOCIATE JUSTICE Wilda Claire Rosemary,RN RN rs3 Shannon Hoskins RN RN ttb Shaniqua Scott The chart was reviewed and I authenticate all verbal orders and agree with the evaluation and treatment provided.Corrections: (The following items were deleted from the chart) 15:27 15:18 BLOOD CULTURES ordered. EDMS EDMS 15:29 15:26 ETHYL ALCOHOL (ETHANOL)+LAB ordered. EDMS EDMS 15:29 15:26 LIVER PROFILE+LAB ordered. EDMS EDMS Attachments: 17:10 [facility] [place] Payment Agreement zo 22:07 T-Sheet-- Draft Copy r 08/08 12:21 ECG/EKG gb Chart Complete MTDD
--- NOTE | 2016-08-09 18:19 | EDDOCDS ---
Nurse's Notes [facility] Name: Kareen Gresham Age: 81 yrs Sex: Male : 1935 Arrival Date: 08/07/2016 Time: 14:16 Bed 5 Private MD: [place] Bijal Waverly Diagnosis: Edema, unspecified;Acute combined systolic (congestive) and diastolic (congestive) heart failure Presentation: 08/07 14:22 Presenting complaint: son states that bilateral pedal edema. Lasix was increased from rs3 20 mg to 40 mg on the . noticed increased breathing difficulty and urinating less than usual. Adult Sepsis Screening: The patient does not have new or worsening altered mentation. Patient's respiratory rate is less than 22. Systolic blood pressure is greater than 100. Patient has a qSOFA score of 0- Negative Sepsis Screen. Suicide/Homicide risk assessment- the patient denies having any suicidal and/or homicidal ideations and does not present with any other emotional, behavioral or mental health complaints. 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 Transition of care: patient was not received from another setting of care. 14:22 Acuity: NADJA Level 3 rs3 14:22 Method Of Arrival: Walkin/Carried/Asstd rs3 Triage Assessment: 14:30 General: Appears in no apparent distress. Pain: Denies pain. Respiratory: Onset: The rs3 symptoms/episode began/occurred gradually. Historical: - Allergies: no known allergies; - Home Meds: 1. aspirin 81 mg oral tab 2. atenolol 25 mg oral tab 1 tab once daily 3. atorvastatin 10 mg oral tab 1 tab once daily 4. citalopram 20 mg Oral tab 1 tab once daily 5. finasteride 5 mg oral tab 1 tab once daily 6. multivitamin Oral cap 1 tablet daily 7. tamsulosin 0.4 mg oral cp24 1 cap once daily 8. tramadol 50 mg Oral tab twice a day 9. ferrous sulfate 325 mg (65 mg iron) Oral cpER twice a day 10. Lasix 20 mg oral tab 2 times per day 11. mirtazapine 30 mg Oral tab once daily 12. nitroglycerin 0.4 mg SL subl 1 tab every 5 minutes - PMHx: bowel obstruction; Cancer, Colon; COPD; Hypercholesterolemia; Hypertension; ulcers; - PSHx: Cholecystectomy; back surgery; perforated ulcer; Colon Resection; - Social history: Smoking status: Patient states former smoker of tobacco. No barriers to communication noted, The patient speaks fluent Italian. - Family history: Not pertinent. - : The pt / caregiver states he / she is not on anticoagulants. Home medication list is obtained from the patient. - Exposure Risk Screening:: None identified. Screenin:48 Screening information is obtained from the patient. Fall risk: No risks identified. ttb Assistance ADL's: requires no assistance with activities of daily living. Abuse/DV Screen: The patient / caregiver reports he/she is: not in a situation that causes fear, pain or injury. Nutritional screening: No deficits noted. Advance Directives: Currently, there is no health care proxy. home support is adequate. Assessment: 14:52 Adult Sepsis Screening: The patient does not have new or worsening altered mentation. ttb Patient has a respiratory rate of greater than or equal to 22 (1 point). Systolic blood pressure is greater than 100. Patient has a qSOFA score of 1- Negative Sepsis Screen. General: Behavior is appropriate for age, cooperative, pleasant. Pain: Denies pain. Neurological: Level of Consciousness is awake, alert. Cardiovascular: Heart tones S1 S2 present Chest pain is denied. Respiratory: Airway is patent Respiratory effort is even, unlabored, Respiratory pattern is regular, symmetrical, Breath sounds are clear in right posterior upper lobe and right posterior middle lobe Breath sounds with rhonchi in left posterior upper lobe and left posterior lower lobe Reports shortness of breath gradually worsening over past few days per son. NAD noted while pt sitting on stretcher. the patient has mild shortness of breath Denies cough. GI: Bowel sounds present X 4 quads. Denies constipation, diarrhea, nausea, vomiting, pain. Derm: Skin is normal. 15:57 General: Appears in no apparent distress, comfortable. Cardiovascular: Chest pain is ttb denied. Respiratory: Airway is patent Respiratory effort is even, unlabored. 16:53 Reassessment: Patient appears in no apparent distress at this time. Patient states ttb symptoms have improved. pt complains of "sinus headache". Tylenol give per orders.. General: Appears in no apparent distress, comfortable. Pain: Location: head. Neurological: Level of Consciousness is awake, alert. Respiratory: Airway is patent. 17:12 Adult Sepsis Screening: The patient does not have new or worsening altered mentation. ttb Patient's respiratory rate is less than 22. Systolic blood pressure is greater than 100. Patient has a qSOFA score of 0- Negative Sepsis Screen. General: Behavior is cooperative, pleasant. General: pt states he feels better since arrival. Large amt of urine out at this time. Headache improved.. Neurological: Level of Consciousness is awake, alert. Cardiovascular: Rhythm is sinus rhythm Chest pain is denied. Respiratory: Airway is patent Respiratory effort is even, unlabored, Denies cough, shortness of breath. Vital Signs: 14:17 BP 143 / 68; Pulse 65; Resp 22; Temp 97.6(O); Pulse Ox 98% on R/A; elp 14:48 BP 124 / 58 (auto/); ttb 14:48 Pulse 58 MON; Resp 22; Pulse Ox 94% on R/A; Pain 0/10; ttb 15:55 Pulse 58 MON; Resp 20; Pulse Ox 95% on R/A; Pain 0/10; ttb 16:44 BP 114 / 69 (auto/); ttb 16:44 Pulse 58 MON; Pulse Ox 93% on R/A; ttb 16:52 Pulse 60 MON; Resp 18; Pulse Ox 98% on 2 lpm NC; Pain 3/10; ttb 16:55 Resp 18; ttb 17:07 BP 124 / 66 (auto/); ttb 17:07 Pulse 58 MON; Resp 18; Temp 98.1(TE); Pulse Ox 97% on R/A; Pain 2/10; ttb Vitals: 14:17 Log In Time: August 07, 2016 at 14:15. [facility] ED Course: 14:17 Patient visited by Pastora Sparks PCA. elp 14:17 [facility] is Private Physician. elp 14:17 Patient moved to Waiting elp 14:18 Patient visited by Pastora Sparks PCA. elp 14:18 Patient moved to Pre E jjr 14:25 Triage Initiated rs3 14:35 Radha Chaudhry,RN is Primary Nurse. ms18 14:35 Patient moved to 5 ms18 14:48 The patient / caregiver is instructed regarding the plan of care and ED course. ttb Accompanied by Family Member, Patient has correct armband on for positive identification. Placed in gown. Bed in low position. Call light in reach. Side rails up X2. floriculture professor on. Pulse ox on. NIBP on. 14:55 Patient visited by Shannon Hoskins RN. ttb 14:59 [facility]. ke 14:59 Patient visited by Cooper Holden FNP. ke 14:59 Patient visited by Cooper Holden FNP. ke 15:25 Patient visited by Cooper Holden FNP. ke 15:37 EKG done. (by ED staff). Reviewed by Cooper GOINS. rn1 15:45 Inserted saline lock: 20 gauge in right antecubital area and blood collected. The kc3 patient tolerated the procedure well. Labs drawn. (by ED staff). Sent per order to lab. 15:46 LIVER PROFILE Sent. kc3 15:46 ETHYL ALCOHOL (ETHANOL) Sent. kc3 15:46 B-Type Natiuretic Peptide Sent. kc3 15:46 Basic Metabolic Profile Sent. kc3 15:46 CBC with Diff Sent. kc3 15:46 Cardiac Injury Profile Sent. kc3 15:46 Troponin Sent. kc3 15:50 Patient visited by Cooper Holden FNP. ke 15:55 No procedures done that require assistance. Labs drawn. (by ED staff). ttb 15:58 Primary Nurse role handed off by Radha Chaudhry RN deg 15:58 Patient visited by Shannon Hoskins RN. ttb 16:23 Patient visited by Cooper Holden FNP. ke 16:55 Patient visited by Shannon Hoskins RN. ttb 16:55 Patient visited by Shannon Hoskins RN. ttb 16:57 [facility] is Referral Physician. ke 17:07 Discontinued IV lock intact, bleeding controlled, pressure dressing applied, No ttb redness/swelling at site. 17:10 [facility] [place] Agreement was scanned into [employer] and attached to record. zo 22:07 T-Sheet-- Draft Copy was scanned into [employer] and attached to record. klr 08/08 11:53 Chest, 2 View (pa\\E\\lat) Returned. EDMS 12:21 ECG/EKG was scanned into [employer] and attached to record. gb 12:21 Trend VS was scanned into [employer] and attached to record. gb 20:48 EKG-ADULT Returned. EDMS Administered Medications: 08/07 15:57 Drug: Furosemide 60 mg [furosemide 10 mg/mL injection solution (6 mL)] Route: IVP; ttb Site: right antecubital; 16:55 Follow up: Resp 18 bpm; Response: No Adverse Reaction ttb 16:53 Drug: Acetaminophen 650 mg [acetaminophen 325 mg tablet (2 tabs)] Route: PO; ttb Attachments: 12:21 Trend VS gb Output: 08/07 16:55 Urine: 850.00ml (Voided); Total: 850.00ml. ttb 17:07 Urine: 800.00ml (Voided); Total: 1650.00ml. ttb Order Results: Lab Order: B-Type Natiuretic Peptide; SPEC'M 08/07/16 15:43 Test: BRAIN NATRIURETIC PEPTIDE; Value: 336; Range: <100; Abnormal: Above high normal; Units: PG/ML; Status: F Lab Order: Basic Metabolic Profile; SPEC'M 08/07/16 15:43 Test: GLUCOSE, FASTING; Value: 98; Range: 83-110; Units: MG/DL; Status: F Test: BLOOD UREA NITROGEN; Value: 23; Range: 7-18; Abnormal: Above high normal; Units: MG/DL; Status: F Test: CREATININE FOR GFR; Value: 0.90; Range: 0.70-1.30; Units: MG/DL; Status: F Test: GLOMERULAR FILTRATION RATE; Value: > 60.0; Range: >35; Status: F Test: SODIUM LEVEL; Value: 141; Range: 136-145; Units: MEQ/L; Status: F Test: POTASSIUM SERUM; Value: 4.2; Range: 3.5-5.1; Units: MEQ/L; Status: F Test: CHLORIDE LEVEL; Value: 104; Range: 98-107; Units: MEQ/L; Status: F Test: CARBON DIOXIDE LEVEL; Value: 30; Range: 21-32; Units: MEQ/L; Status: F Test: ANION GAP; Value: 7; Range: 8-16; Abnormal: Below low normal; Units: MEQ/L; Status: F Test: CALCIUM LEVEL; Value: 8.2; Range: 8.8-10.2; Abnormal: Below low normal; Units: MG/DL; Status: F Test Note: ; Units are mL/min/1.73 m2 Chronic Kidney Disease Staging per NKF: Stage I & II GFR >=60 Normal to Mildly Decreased Stage III GFR 30-59 Moderately Decreased Stage IV GFR 15-29 Severely Decreased Stage V GFR <15 Very Little GFR Left ESRD GFR <15 on PHOTOGRAPHIC EQUIPMENT ASSEMBLER Lab Order: CBC with Diff; SPEC'M 08/07/16 15:43 Test: WHITE BLOOD COUNT; Value: 8.2; Range: 4.0-10.0; Units: K/mm3; Status: F Test: RED BLOOD COUNT; Value: 3.29; Range: 4.30-6.10; Abnormal: Below low normal; Units: M/mm3; Status: F Test: HEMOGLOBIN; Value: 9.6; Range: 14.0-18.0; Abnormal: Below low normal; Units: g/dl; Status: F Test: HEMATOCRIT; Value: 28.7; Range: 42.0-52.0; Abnormal: Below low normal; Units: %; Status: F Test: MEAN CORPUSCULAR VOLUME; Value: 87.3; Range: 80.0-96.0; Units: fl; Status: F Test: MEAN CORPUSCULAR HEMOGLOBIN; Value: 29.3; Range: 27.0-33.0; Units: pg; Status: F Test: MEAN CORPUSCULAR HGB CONC; Value: 33.6; Range: 32.0-36.5; Units: g/dl; Status: F Test: RED CELL DISTRIBUTION WIDTH; Value: 15.8; Range: 11.5-14.5; Abnormal: Above high normal; Units: %; Status: F Test: PLATELET COUNT, AUTOMATED; Value: 227; Range: 150-450; Units: k/mm3; Status: F Test: NEUTROPHILS %; Value: 65.4; Range: 36.0-66.0; Units: %; Status: F Test: LYMPH %; Value: 23.0; Range: 24.0-44.0; Abnormal: Below low normal; Units: %; Status: F Test: MONO %; Value: 5.7; Range: 0.0-5.0; Abnormal: Above high normal; Units: %; Status: F Test: EOS %; Value: 2.3; Range: 0.0-3.0; Units: %; Status: F Test: BASO %; Value: 0.3; Range: 0.0-1.0; Units: %; Status: F Test: LARGE UNSTAINED CELL %; Value: 3.4; Range: 0.0-4.0; Units: %; Status: F Test: NEUTROPHILS #; Value: 5.4; Range: 1.8-7.7; Units: K/mm3; Status: F Test: LYMPH #; Value: 1.9; Range: 1.5-4.5; Units: K/mm3; Status: F Test: MONO #; Value: 0.5; Range: 0.0-0.8; Units: K/mm3; Status: F Test: EOS #; Value: 0.2; Range: 0.0-0.50; Units: K/mm3; Status: F Test: BASO #; Value: 0.0; Range: 0.0-0.2; Units: K/mm3; Status: F Test: LARGE UNSTAINED CELL #; Value: 0.3; Range: 0.0-0.4; Units: K/mm3; Status: F Lab Order: Cardiac Injury Profile; SPEC'M 08/07/16 15:43 Test: CPK CREATINE PHOSPHOKINASE; Value: 63; Range: 39-308; Units: U/L; Status: F Test: CK-MB VALUE MASS; Value: 1.7; Range: 0.0-3.6; Units: NG/ML; Status: F Test: MB/CK RELATIVE INDEX; Value: 2.69; Range: < OR =4; Status: F Test Note: ; DIAGNOSIS CRITERIA MMB ng/ml Relative Index (RI) NON-AMI < or = 5 N/A BARBOZA ZONE > 5 < or = 4 AMI > 5 > 4 Lab Order: Troponin; SPEC'M 08/07/16 15:43 Test: TROPONIN I; Value: < 0.02; Range: < 0.10; Units: NG/ML; Status: F Test Note: ; Troponin I Reference Interval for Resonate LOCI: 99th Percentile= 0.00-0.045 ng/ml Risk Stratification: <= 0.10 ng/ml Decreased Risk for Adverse Clinical Events. 0.10-1.50 ng/ml Increased Risk for Adverse Clinical Events. Evaluation of additional criterion and/or repeat testing in 2-6 hours is suggested to rule out myocardial damage. >= 1.50 ng/ml Indicative of Myocardial Injury. Lab Order: ETHYL ALCOHOL (ETHANOL); SPEC'M 08/07/16 15:43 Test: ETHYL ALCOHOL (ETHANOL); Value: < 0.003; Range: 0.000-0.010; Units: %; Status: F Lab Order: LIVER PROFILE; SPEC'M 08/07/16 15:43 Test: AST/SGOT; Value: 17; Range: 15-37; Units: U/L; Status: F Test: ALT/SGPT; Value: 24; Range: 12-78; Units: U/L; Status: F Test: ALKALINE PHOSPHATASE; Value: 116; Range: 45-117; Units: U/L; Status: F Test: BILIRUBIN,TOTAL; Value: 0.3; Range: 0.2-1.0; Units: MG/DL; Status: F Test: BILIRUBIN,DIRECT; Value: 0.1; Range: 0.0-0.2; Units: MG/DL; Status: F Test: TOTAL PROTEIN; Value: 7.2; Range: 6.4-8.2; Units: GM/DL; Status: F Test: ALBUMIN; Value: 3.2; Range: 3.2-5.2; Units: GM/DL; Status: F Test: ALBUMIN/GLOBULIN RATIO; Value: 0.80; Range: 1.00-1.93; Abnormal: Below low normal; Status: F Radiology Order: Chest, 2 View (pa\\E\\lat) Test: Chest, 2 View (pa\\E\\lat) REASON FOR EXAMINATION: Shortness of Breath; PA and lateral chest:; ; Comparison is 01/04/2013.; ; Stable granulomas are noted in both the lung vega, unchanged.; ; There are no acute infiltrates or effusions.; ; Cardiac size is normal. Sternotomy wires are again noted.; ; I suspect there has been interim enlargement of the right hilus.; ; The patient had a recent chest CT dated 07/16/2016 that identified a 3 cm; cavitary mass medially in the right upper lobe with encasement of the right upper; lobe bronchus consistent with primary lung carcinoma.; ; Recommend PET scan for further evaluation.; ; ; Signed by; Quoc Morris MD 08/07/2016 04:45 P; Radiology Order: EKG-ADULT Test: EKG-ADULT REASON FOR EXAMINATION: Shortness of Breath; Stationary ECG Study; [facility] - ED; ; Test Date: 2016-08-07; Pat Name: KAREEN GRESHAM Department:; Room: -; Gender: M Animal Cruelty Investigator: rn; : 1935 Requested By: COOPER GOINS; Order Number: [id number] Reading MD: Valentine Suero; Measurements; Intervals [place]; Rate: 57 P: 90; NM: 206 QRS: 4; QRSD: 90 T: 27; QT: 463; QTc: 452; Interpretive Statements; SINUS BRADYCARDIA; NSTTW ABNORMALITY; DECREASED RATE 07/12/16; Electronically Signed On 08-08-2016 20:32:28 EST by Valentine Suero; Outcome: 16:58 Discharge ordered by Provider. ke 17:07 Discharge Assessment: Patient awake and alert. patient administered narcotics - no. The ttb following High Risk Discharge criteria are identified: None. Discharged to home ambulatory, with family. Condition: good Condition: stable Condition: improved. Discharge instructions given to patient, family, Instructed on discharge instructions, follow up and referral plans. medication usage, diet, Demonstrated understanding of instructions, medications, Pt was receptive of discharge instructions/ teaching. No special radiology studies were completed. Property :Personal belongings accompany Pt. 17:18 Patient left the ED. ttb Signatures: Dispatcher [employer] EDAdriana Nevarez, Arts And Crafts Instructor Unit deg Massiel Arreola, Reg Reg Cooper Hearn FNP FNP ke Olin, Zoeann zo Raymond, Jessica RN RN Shira Ellis RN RN rs3 Shannon Hoskins RN RN ttb Pastora Sparks, GREG CONCRETE SWIMMING POOL INSTALLER Dagmar Sinha RN RN ms18 Pratik Levi rn1 Josie Plascencia,JT RN [id number] Shaniqua Scott Chart Complete MTDD
== END 2016-08-07 17:18 | disposition home or self-care (01) ==
LOC: M ED 14:16
DX: I50.9 Heart failure, unspecified (principal); R60.0 Localized edema; I10 Essential (primary) hypertension; J44.9 Chronic obstructive pulmonary disease, unspecified; E78.00 Pure hypercholesterolemia, unspecified; Z85.038 Personal history of other malignant neoplasm of large intestine; Z79.899 Other long term (current) drug therapy; Z79.82 Long term (current) use of aspirin; Z87.891 Personal history of nicotine dependence
CPT/HCPCS: 36415; 71020; 80048; 80076; 82550; 82553; 83880; 84484; 85025; 93005; 93041; 96374; 99285; G0480; J1940

== ENCOUNTER → 2016-08-23 | Outpatient (CLI) | payer MEDICARE ==
[~2016-08-23] VITALS: Ht 172.7 cm; Wt 62.1 kg
[~2016-08-23] MED LIST changes: +ALBU83IN INH; +ALBUTEROL SULFATE 2.5 MG/0.5 ML INH NEB SOLN As Ordered ONE; +BENZ100C5 PO; +EPINEPHrine 1MG/10ML SYRINGE 1.5IN As Ordered ONE; +LIDOCAINE 1% MDV 20ML VIAL As Ordered ONE; +LIDOCAINE 4% INJ 5 ML AMP As Ordered ONE; +LIDOCAINE VISCOUS 2% SOLN 15ML UDC As Ordered ONE; +MIDAZOLAM INJ 2 MG/2 ML VIAL (J2250) As Ordered ONE; +fentaNYL 100 MCG/2 ML INJECTION (J3010) As Ordered ONE
--- NOTE | 2016-08-23 08:38 | RO ---
DATE OF PROCEDURE: 08/23/2016 PREOPERATIVE DIAGNOSES: Abnormal chest CT, right upper lobe lesion, right suprahilar mass. POSTOPERATIVE DIAGNOSES: Abnormal chest CT, right upper lobe lesion, right suprahilar mass. PROCEDURE: Bronchoscopy with endobronchial biopsies, endobronchial ultrasound with fine-needle aspiration (FNA) procedures. SURGEON: Andrew Siu DO MATRIX PLATER: No assistants. ANESTHESIA: 12 mcg IV Versed, 50 mcg IV fentanyl. and 360 of topical lidocaine. FINDINGS: Abnormal vocal cords, abnormal right upper lobe lesion and right suprahilar lesion on ultrasound. SPECIMENS OBTAINED: 1. Right upper lobe endobronchial biopsy. 2. Right upper lobe fine needle aspiration. ESTIMATED BLOOD LOSS: Approximately 5 mL, none replaced. No drains. No observed complications. DESCRIPTION OF PROCEDURE: After informed consent was reviewed with the patient, he was brought back to the OPP suite. Time-out was performed with two patient identifiers identifying correct site, correct procedure. Anesthetization of the airway was performed, first with 4% nebulized lidocaine, then direct application of 4% lidocaine. Conscious sedation was then initiated. The bite block was placed after adequate sedation and the P180 bronchoscope was introduced transorally. The posterior pharynx was abnormal due to the fact there was redundant tissue especially over the left vocal cord. The tissue appeared abnormal but not hypervascular. The vocal cords approximated normally. They were anesthetized with 1% lidocaine. Bronchoscope was then advanced through the airway. Trachea was normal. Nicci was sharp. All airways were anesthetized with 1% lidocaine. Right upper lobe was significantly abnormal. It was completely occluded by mass. Right bronchus intermedius and right middle lobe, lower lobe were normal. Right bronchus (RB) 4-10 was inspected without abnormalities. Left bronchus (LB) 1-10 was also inspected without abnormalities. There were no abnormalities of the left mainstem. Bronchoscope was then inserted into the right upper lobe area and endobronchial biopsies were taken of the right upper lobe lesion. Two biopsies were taken. However, the patient had significant bleeding from both and therefore, no further biopsies could be taken. I therefore converted to endobronchial ultrasound, removed P180 scope and inserted endobronchial ultrasound and viewed the right suprahilar area, which had a large mass greater than 4 cm. I took multiple fine needle aspirations of this area and there was enough tissue to sent for cell block. After adequate hemostasis, bronchoscope was removed and the patient is now recovering without any signs of complications. Post chest x-ray is pending.
[2016-08-23 09:42] VITALS: BP 157/69
--- NOTE | 2016-08-23 10:03 | REP ---
Clinical: Post procedure. Rule out pneumothorax. Comparison: 08/07/2016. Findings: Subtle right upper lobe and bibasilar atelectasis suggested along with underlying chronic changes. No pneumothorax. Mediastinum and cardiac silhouette stable. Skeletal structures intact. Impression: No pneumothorax. Chronic changes with superimposed right upper lobe opacity and atelectasis suggested. Signed by Delano Martinez MD 08/23/2016 09:54 A
== END | disposition home or self-care (01) ==
LOC: M OPP 06:57
PROVIDERS: ATTEND Internal Medicine Pulmonary Disease
DX: C34.90 Malignant neoplasm of unspecified part of unspecified bronchus or lung (principal); J47.9 Bronchiectasis, uncomplicated; Z87.891 Personal history of nicotine dependence; I25.10 Atherosclerotic heart disease of native coronary artery without angina pectoris; Z85.038 Personal history of other malignant neoplasm of large intestine; E03.9 Hypothyroidism, unspecified; F32.9 Major depressive disorder, single episode, unspecified; F41.9 Anxiety disorder, unspecified; I10 Essential (primary) hypertension; N40.0 Benign prostatic hyperplasia without lower urinary tract symptoms; K80.20 Calculus of gallbladder without cholecystitis without obstruction; Z79.899 Other long term (current) drug therapy
CPT/HCPCS: 31625; 31652; 71010; 88172; 88173; 88305; 88313; 94640; J2250; J3010

== ENCOUNTER → 2016-09-15 | Outpatient (CLI) | payer MEDICARE ==
[~2016-09-15] MED LIST changes: -ALBUTEROL SULFATE 2.5 MG/0.5 ML INH NEB SOLN As Ordered ONE; -EPINEPHrine 1MG/10ML SYRINGE 1.5IN As Ordered ONE; -LIDOCAINE 1% MDV 20ML VIAL As Ordered ONE; -LIDOCAINE 4% INJ 5 ML AMP As Ordered ONE; -LIDOCAINE VISCOUS 2% SOLN 15ML UDC As Ordered ONE; -MIDAZOLAM INJ 2 MG/2 ML VIAL (J2250) As Ordered ONE; -fentaNYL 100 MCG/2 ML INJECTION (J3010) As Ordered ONE
--- NOTE | 2016-09-17 13:51 | RADONC ---
RADIATION ONCOLOGY CONSULTATION: DATE OF SERVICE: 09/15/2016 DIAGNOSIS: Right lung cancer. STAGE: Stage III A. ECOG PERFORMANCE STATUS: 1 Mr. 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 HISTORY OF PRESENT ILLNESS: The patient was in his usual state of health until he was seen in on July [address] [facility] emergency room with hyponatremia and fatigue. A chest x-ray revealed some scarring in the left lower lobe. Subsequent CT scan done 07/16/2016 revealed a small cavitary mass in the right superior hilar area measuring 3.1 cm consistent with a lung primary. Followup PET done 08/03/2016 showed increased uptake in the right suprahilar cavity mass along with jeancarlos metastasis along the right mediastinum. On 08/23/2016, the patient underwent fine needle aspiration biopsy and pathology revealed a moderate to poorly differentiated squamous cell carcinoma. There was some PET avidity in the vocal cords but this was thought to not be malignant. The patient was subsequently referred to his medical oncologist, Dr. Montes De Oca and is now presenting to us today for discussion of possible definitive external beam radiation therapy with combination chemotherapy as a therapeutic option. PAST MEDICAL HISTORY: The patient's past medical history is positive for colon cancer and surgery 7 years ago. He had coronary artery disease and coronary artery bypass grafting in the past. The patient has a history of congestive heart failure. He has an infrarenal aortic aneurysm measuring 3.1 cm. The patient has had hypercholesterolemia and benign prostatic hypertrophy. He has COPD, depression as well as a history of a perforated ulcer and small intestinal obstruction. His past surgeries include partial colectomy, a post iliac artery stent, back surgery and he is status post gastrectomy. ALLERGIES: The patient has no known drug allergies. SOCIAL HISTORY: The patient has smoked two packs of cigarettes per day for over 65 years for over 130 pack-year smoking history. He drinks at least four alcoholic beverages a day. FAMILY HISTORY: The patient's family history is positive for a brother with some type of cancer. REVIEW OF SYSTEMS: The patient's review of systems is positive for shortness of breath as well as some headaches. It is otherwise noncontributory. He denies nausea, vomiting, fevers, chills, night sweats, diplopia, headaches, anxiety or depression, anorexia, weight loss, visual disturbances, chest pain, urinary or bowel difficulties, bone pain, or neurological problems. PHYSICAL EXAMINATION: The patient is an elderly white male in no acute distress. HEENT exam is normocephalic, atraumatic. Extraocular movements are intact. There is no palpable cervical, supraclavicular, infraclavicular, axillary, or inguinal lymphadenopathy present. Lungs are clear to auscultation and percussion. Heart has a regular rate and rhythm. Abdomen is benign with no hepatosplenomegaly, masses, or tenderness. Skeletal examination reveals no tenderness to pressure or percussion of the bony skeleton. Extremities reveal no clubbing, cyanosis, or edema. Neurologic exam is grossly intact, as is the remainder of the physical examination. ASSESSMENT: The patient is presenting to us today with what appears to be a stage III A, T2N2M0 poorly differentiated squamous cell carcinoma of the right upper lobe for consideration of definitive external beam radiation therapy. An MRI of the brain was done and the results are pending. I have reviewed the patient's pulmonary function tests and surprisingly his FEV-1 is 1.99. The patient does not, at this time, use oxygen. In light of this he may be a candidate for external beam radiation therapy and I have so informed him. I have discussed with the patient in detail the potential benefits as well as possible acute and chronic sequelae of external beam radiation therapy. We have discussed logistics of treatment planning, simulation and subsequent fractionated daily radiation treatments. I have scheduled the patient for a differential lung scan to further evaluate his breathing capacity. Pending that I have set him up with CT for simulation initiation of treatment planning. A dose volume histogram will be constructed to see whether or not overall he can tolerate the treatments. Final recommendations on whether or not we can give him concomitant therapy will of course, depend on the results of the differential lung scan and a dose volume histogram. Thank you for allowing us to participate in the care of this very pleasant gentleman. I will keep you informed as to any new developments as they occur. Once again final recommendations await the above mentioned studies. Thank you once again for allowing us to participate in this gentleman's care. As always in warm regards, cc: MD Andrew Linares, DO [facility] *Jamal Sy MD
== END ==
LOC: M ONCR 14:07
PROVIDERS: ATTEND Radiology Radiation Oncology
DX: C34.90 Malignant neoplasm of unspecified part of unspecified bronchus or lung (principal)

== ENCOUNTER → 2016-09-15 | Outpatient (CLI) | payer MEDICARE ==
[~2016-09-15] MED LIST changes: +ATEN50TA2 PO
--- NOTE | 2016-09-15 19:16 | REP ---
MR BRAIN WITHOUT AND WITH CONTRAST: HISTORY: Lung cancer. CONTRAST: ProHance 13 mL. Areas of increased signal intensity on T2 weighted images are present in the basal ganglia. There represent old lacunar infarctions. Areas of increased signal intensity on T2 weighted images are present in the periventricular and subcortical white matter and ramón. This represents small vessel ischemic disease. There is no intraparenchymal hemorrhage, acute infarct, mass or midline shift. There is no abnormal enhancement. The ventricular system and cortical sulci are dilated consistent with mild volume loss. There is no extracerebral collection. Mucosal thickening is present in the ethmoid maxillary and right sphenoid sinuses. IMPRESSION: 1. Old bilateral basal ganglia lacunar infarctions. 2. Small vessel ischemic disease. 3. Mild volume loss. Signed by Arvin Barclay MD 09/16/2016 08:31 A
== END ==
LOC: M RAD 15:27
PROVIDERS: ATTEND Internal Medicine Medical Oncology
DX: C34.90 Malignant neoplasm of unspecified part of unspecified bronchus or lung (principal)
CPT/HCPCS: 70553; A9576; G0463

== ENCOUNTER → 2016-09-19 | Outpatient (CLI) | payer MEDICARE ==
--- NOTE | 2016-09-19 14:24 | REP ---
PA and lateral chest: Comparison studies are the PA and lateral chest dated 08/07/2016 and 05/02/2016 and a remote PA and lateral chest dated 04/22/2008. The enlargement of the right hilus is again noted, unchanged from 08/07/2016 but not present prior to that. There are multiple lung nodules, unchanged from 04/22/2008, likely granulomas. There are no acute infiltrates or effusions. Cardiac size is normal. Sternotomy wires are again noted. Impression: Enlargement of the right hilus, not significantly changed from 08/07/2016. Multiple stable lung nodules compatible with granulomas. Signed by Quoc Morris MD 09/19/2016 02:15 P
--- NOTE | 2016-09-19 15:04 | REP ---
Radionuclide pulmonary ventilation and perfusion differential function scan: The study is performed with 1 mCi of technetium labeled MAA intravenously for the perfusion phase of the study followed by 2.0 mCi of technetium labeled DTPA aerosol for the ventilation phase of the study. 57% of total lung perfusion is from the left lung and 43% is from the right lung. 55% of total lung ventilation is from the left lung and 45% is from the right lung. Signed by Quoc Morris MD 09/19/2016 02:56 P
== END ==
LOC: M RAD 12:39
PROVIDERS: ATTEND Radiology Radiation Oncology
DX: C34.90 Malignant neoplasm of unspecified part of unspecified bronchus or lung (principal)
CPT/HCPCS: 71020; 78598; A9540; A9567

== ENCOUNTER 2016-09-22 14:55 | Outpatient (RCR) | payer OTHER, MEDICARE ==
[~2016-09-22 14:55] MED LIST changes: -ATEN50TA2 PO
[2016-09-22] MEDS ORDERED: ATEN50TA2 PO (15:58)
[2016-09-22] MEDS ORDERED: FINA5TAB2 PO (15:58)
[2016-09-22] MEDS ORDERED: FOLI1TAB2 PO (15:58)
--- NOTE | 2016-09-27 08:53 | RADONC ---
RADIATION ONCOLOGY SIMULATION NOTE DATE: 09/22/2016 CHART NUMBER: SIMULATION NOTE: Mr. Gresham was taken to the CT scan for CT simulation of his lung field. CT was accomplished without difficulty or discomfort. Radiation treatment planning is underway and radiation treatments will begin subsequently. An immobilization device was created without difficulty or discomfort. It will also be used throughout the course of treatment. I was physically present throughout the course of CT simulation.
== END 2016-10-07 ==
LOC: M ONCR 14:55
PROVIDERS: ATTEND Radiology Radiation Oncology
DX: C34.11 Malignant neoplasm of upper lobe, right bronchus or lung (principal)

== ENCOUNTER → 2016-09-22 | Outpatient (CLI) | payer MEDICARE, OTHER | LOC: M RAD 13:58 | PROVIDERS: ATTEND Radiology Radiation Oncology | DX: C34.90 Malignant neoplasm of unspecified part of unspecified bronchus or lung (principal) ==

== ENCOUNTER 2016-09-27 07:05 | Day surgery (SDC) | payer MEDICARE ==
[~2016-09-27] VITALS: Ht 172.7 cm; Wt 65.8 kg
[~2016-09-27 07:05] MED LIST changes: +ATEN50TA2 PO; +LR 1,000 ML IV SCH
[2016-09-27] MEDS ORDERED: LIDOCAINE 2% INJ 100 MG/5 ML SDV (FOR ANES.) As Ordered ONE ×2 (07:08→08:19)
[2016-09-27] MEDS ORDERED: PROPOFOL 200 MG/20 ML VIAL As Ordered ONE ×2 (07:08→07:25)
[2016-09-27] MEDS ORDERED: MIDAZOLAM INJ 2 MG/2 ML VIAL (J2250) As Ordered ONE (07:08)
[2016-09-27] MEDS ORDERED: ONDANSETRON 4MG/2ML VIAL (J2405) As Ordered ONE (07:08)
[2016-09-27] MEDS ORDERED: ROCURONIUM BROMIDE 50 MG/5 ML VIAL As Ordered ONE (07:08)
[2016-09-27] MEDS ORDERED: fentaNYL 100 MCG/2 ML INJECTION (J3010) As Ordered ONE (07:09)
[2016-09-27] MEDS ORDERED: LEVALBUTEROL 1.25 MG/0.5 ML CONCENTRATE NEB As Ordered ONE (07:15)
[2016-09-27] MEDS ORDERED: CETACAINE SPRAY 20GM (FLOOR STOCK) As Ordered ONE (07:22)
[2016-09-27] MEDS ORDERED: LEVALBUTEROL 1.25 MG/0.5 ML CONCENTRATE NEB INH ONE (08:00)
[2016-09-27] MEDS ORDERED: dexameTHASONE 10 MG/1 ML VIAL PRES.FREE (J1100) As Ordered ONE (08:10)
[2016-09-27] MEDS ORDERED: METOCLOPRAMIDE INJ 10MG/2ML VIAL (J2765) IV PRN (08:30)
[2016-09-27] MEDS ORDERED: ONDANSETRON 4MG/2ML VIAL (J2405) IV PRN (08:30)
[2016-09-27] MEDS ORDERED: LR 1,000 ML IV SCH ×2 (08:30)
[2016-09-27] MEDS ORDERED: fentaNYL 100 MCG/2 ML INJECTION (J3010) IV PRN (08:30)
[2016-09-27] MEDS ORDERED: dexameTHASONE 4 MG/ML 1ML VIAL (J1100) IV ONE (09:00)
[2016-09-27] MEDS ORDERED: HYDROcodone/APAP LIQUID 7.5-325MG 15ML UDC (LORTAB ELIXIR) As Ordered ONE (09:10)
[2016-09-27] MEDS ORDERED: HYDROcodone/APAP LIQUID 7.5-325MG 15ML UDC (LORTAB ELIXIR) PO PRN (09:30)
--- NOTE | 2016-09-27 10:20 | RO ---
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 OPERATIVE PROCEDURE: Direct laryngoscopy and biopsy. SURGEON: Joaquín Marcos MD JEWISH HISTORY PROFESSOR: ANESTHESIA: FINDINGS: There was a tumor, which was on the glottic surface of the epiglottis, did not go past the midline, did not go to the arytenoid area. It was approximately 11.5 cm in diameter, did go into the false cord, did not involve the true cords or the vallecula. Did not involve the aryepiglottic fold. Did not involve the ventricle. Did not involve the vallecula. Did not involve the piriformis fossa or the postcricoid area. DESCRIPTION OF PROCEDURE: Under general anesthesia with the patient intubated, the patient was prepped and draped in the usual manner. Once the patient was asleep, the laryngoscope was inserted. I did use a dental guard, although the patient was edentulous. I passed the scope through the mouth and into the oropharynx, hypopharynx, and into the larynx area. Along the way, the oral cavity was examined. The base of the tongue, posterior pharyngeal wall, lateral pharyngeal wall, epiglottis and the larynx itself, the above findings were seen. I sprayed the cords with Cetacaine. I then took three biopsies of the tumor. The patient tolerated the procedure well. The patient was transferred to the recovery room in excellent condition.
[2016-09-27 10:30] VITALS: BP 127/60
== END 2016-09-27 11:30 | disposition home or self-care (01) ==
LOC: M SDC 07:05
PROVIDERS: ATTEND Otolaryngology
DX: C32.1 Malignant neoplasm of supraglottis (principal); I25.10 Atherosclerotic heart disease of native coronary artery without angina pectoris; I25.2 Old myocardial infarction; I50.9 Heart failure, unspecified; I10 Essential (primary) hypertension; F32.9 Major depressive disorder, single episode, unspecified; F41.9 Anxiety disorder, unspecified; Z87.891 Personal history of nicotine dependence; E78.5 Hyperlipidemia, unspecified; I73.9 Peripheral vascular disease, unspecified; Z79.82 Long term (current) use of aspirin; Z85.038 Personal history of other malignant neoplasm of large intestine; Z86.73 Personal history of transient ischemic attack (TIA), and cerebral infarction without residual deficits
CPT/HCPCS: 31535; 88305; J1100; J2250; J3010

== ENCOUNTER → 2016-09-29 | Outpatient (REF) | payer MEDICARE ==
[~2016-09-29] MED LIST changes: -LR 1,000 ML IV SCH
== END ==
LOC: M LAB REF 12:00
PROVIDERS: ATTEND Internal Medicine Medical Oncology
DX: C34.90 Malignant neoplasm of unspecified part of unspecified bronchus or lung (principal)

== ENCOUNTER 2016-10-10 09:12 | Outpatient (RCR) | payer MEDICARE, OTHER ==
--- NOTE | 2016-10-11 09:10 | RADONC ---
RADIATION ONCOLOGY PROGRESS NOTE DATE: 10/10/2016 CHART NUMBER: [id number] Mr. Gresham had been scheduled to initiate his radiation today. Unfortunately due to machine breakdown we could not start treatment. He is therefore scheduled to initiate radiation tomorrow.
--- NOTE | 2016-10-18 06:23 | RADONC ---
RADIATION ONCOLOGY PROGRESS NOTE: DATE: 10/17/2016 CHART NUMBER: [id number]. PROGRESS NOTE: Mr. Gresham is thus far at a dose of 720 cGy to his right lung and was last treated on 10/14/2016. The patient reports today that he is doing quite well with no complaints at this time related to his radiation therapy or disease. He continues to have pain over various parts of his body. His pain medications are being controlled by the [facility]. REVIEW OF SYSTEMS: The patient's review of systems is positive for bone pain in multiple sites but is otherwise noncontributory. Denies nausea, vomiting, fevers, chills, night sweats, diplopia, headaches, anxiety or depression, anorexia, weight loss, visual disturbances, chest pain, urinary or bowel difficulties, bone pain, or neurological problems. PHYSICAL EXAMINATION: The patient's skin is in good condition with no evidence of radiation change present. There is no moist or dry desquamation. The remainder of his physical exam remains unchanged. Mr. Gresham is tolerating treatments quite well and radiation will continue as scheduled.
--- NOTE | 2016-10-24 13:49 | RADONC ---
RADIATION ONCOLOGY PROGRESS NOTE DATE: 10/24/2016 CHART NUMBER: [id number] Mr. Gresham is presently at a dose of 1800 cGy to his right lung and is tolerating treatments quite well at this point with no complaints related to his radiation therapy. He is having no increased difficulty swallowing or breathing. The patient's review of systems is positive for some continued shortness of breath but is otherwise noncontributory. He denies nausea, vomiting, fevers, chills, night sweats, diplopia, headaches, anxiety or depression, anorexia, weight loss, visual disturbances, chest pain, urinary or bowel difficulties, bone pain, or neurological problems. PHYSICAL EXAMINATION: The patient's skin is in good condition with no evidence of radiation change present. There is no moist or dry desquamation. The remainder of his physical exam remains unchanged. Mr. Gresham is tolerating treatments quite well, and radiation will continue as scheduled.
[2016-10-25] MEDS ORDERED: FURO20TA2 PO (23:34)
[2016-10-26] MEDS ORDERED: NITR4TASL SL (06:29)
[2016-10-26] MEDS ORDERED: AMLO5TAB2 PO (06:29)
[2016-10-26] MEDS ORDERED: FERR325T PO (06:29)
[2016-10-26] MEDS ORDERED: FOLI1TAB2 PO (06:29)
[2016-10-26] MEDS ORDERED: PROC10TA PO (06:32)
[2016-10-26] MEDS ORDERED: ONDA4TAB6 PO (06:32)
[2016-10-30] MEDS ORDERED: AVEL1TAB PO (06:42)
[2016-10-30] MEDS ORDERED: BACITAB3 PO (06:42)
--- NOTE | 2016-11-01 07:42 | RADONC ---
RADIATION ONCOLOGY PROGRESS NOTE DATE: 10/31/2016 CHART NUMBER: [id number] Mr. Gresham is presently at a dose of 2160 cGy to his right lung mass and is tolerating treatments quite well at this point with no complaints related to his radiation therapy. He is having no increased difficulty breathing or difficulty swallowing. REVIEW OF SYSTEMS: The patient's review of systems is noncontributory. Denies nausea, vomiting, fevers, chills, night sweats, diplopia, headaches, anxiety or depression, anorexia, weight loss, visual disturbances, chest pain, urinary or bowel difficulties, bone pain, or neurological problems. PHYSICAL EXAMINATION: The patient's skin is in good condition with no evidence of radiation change present. There is no moist or dry desquamation. The remainder of his physical exam remains unchanged. Mr. Gresham is tolerating treatments quite well and radiation will continue as scheduled.
--- NOTE | 2016-12-14 09:42 | RADONC ---
RADIATION ONCOLOGY PROGRESS NOTE DATE: 12/13/2016 CHART NUMBER: [id number] Mr. Gresham is presently and thus far at a dose of 5400 cGy to his right lung and was last treated on 11/25/2016. He was subsequently admitted to the [facility]. We have contacted him and his family and they said they would call us when he is discharged for reevaluation and possible resumption of treatment. The patient will let us know when he is ready to resume, we will keep his chart active at this time.
--- NOTE | 2016-12-15 14:09 | RADONC ---
RADIATION ONCOLOGY PROGRESS NOTE DATE: 12/15/2016 CHART NUMBER: [id number] I put a phone call in to Mr. Gresham' son and spoke with him at length today. The patient is slowly recovering and is staying with his family down in the [place] area. He is presently still on oxygen and quite weak. The son does not believe he is ready to consider reinitiation of any treatments at this point. The family let me know they would get back to me when the patient is sufficiently recovered to consider any further radiation.
== END 2016-11-06 ==
LOC: M ONCR 09:12
PROVIDERS: ATTEND Radiology Radiation Oncology
DX: C34.11 Malignant neoplasm of upper lobe, right bronchus or lung (principal)

== ENCOUNTER 2016-10-25 23:15 | Inpatient (IN) | payer MEDICARE, OTHER ==
[~2016-10-25] VITALS: Ht 172.7 cm; Wt 71.2 kg
[2016-10-25] MEDS ORDERED: FURO20TA2 PO (23:34)
[2016-10-26] MEDS ORDERED: LORazepam 2 MG/ML VIAL (J2060) IV STA (00:53)
[2016-10-26 01:10] LABS: BASO % 0.2 % (0.0-1.0); EOS % 0.6 % (0.0-3.0); LARGE UNSTAINED CELL # 0.1 K/mm3 (0.0-0.4); LARGE UNSTAINED CELL % 1.4 % (0.0-4.0); LYMPH # 0.2 K/mm3 (1.5-4.5); MEAN CORPUSCULAR HEMOGLOBIN 31.2 pg (27.0-33.0); MEAN CORPUSCULAR HGB CONC 34.1 g/dl (32.0-36.5); MEAN CORPUSCULAR VOLUME 91.4 fl (80.0-96.0); MONO # 0.1 K/mm3 (0.0-0.8); MONO % 3.1 % (0.0-5.0); NEUTROPHILS # 3.5 K/mm3 (1.8-7.7); NEUTROPHILS % 89.7 % (36.0-66.0); PLATELET COUNT, AUTOMATED 198 k/mm3 (150-450); WHITE BLOOD COUNT 3.9 K/mm3 (4.0-10.0)
[2016-10-26 01:11] LABS: ANION GAP 5 MEQ/L (8-16); BLOOD UREA NITROGEN 25 MG/DL (7-18); CALCIUM LEVEL 8.9 MG/DL (8.8-10.2); CARBON DIOXIDE LEVEL 31 MEQ/L (21-32); CHLORIDE LEVEL 104 MEQ/L (98-107); CREATININE FOR GFR 1.06 MG/DL (0.70-1.30); GLOMERULAR FILTRATION RATE > 60.0 (>35); GLUCOSE, FASTING 143 MG/DL (83-110); POTASSIUM SERUM 4.3 MEQ/L (3.5-5.1); SODIUM LEVEL 140 MEQ/L (136-145)
[2016-10-26] MEDS: IPRATROPIUM 0.5MG/ALBUTEROL 2.5MG INH SOL UD 3ML (DUONEB)(J7620) NEB PRN ×3 (01:30→02:05)
[2016-10-26 01:31] LABS: ABG BASE EXCESS 0.6 (-2.0-2.0); ABG HCO3 24.2 MEQ/L (22.0-26.0); ABG PARTIAL PRESSURE CO2 34.6 mmHg (35.0-45.0); ABG PARTIAL PRESSURE O2 74.5 mmHg (75.0-100.0); ABG TOTAL CO2 25.2 MEQ/L (23.0-31.0); ABG pH (ARTERIAL) 7.462 UNITS (7.350-7.450)
[2016-10-26] MEDS ORDERED: MORPHINE 4 MG/ML 1ML SYRINGE IV ONE (03:45)
[2016-10-26] MEDS ORDERED: ACETAMINOPHEN TAB 650MG DOSE (2X325MG) PO ONE (03:45)
[2016-10-26] MEDS ORDERED: ISOVUE-370 76% 100ML VIAL (Q9967) As Ordered ONE (04:05)
--- NOTE | 2016-10-26 05:20 | REPUSA ---
CLINICAL HISTORY: Dyspnea, exclude PE. TECHNIQUE: Multiple incremental axial, coronal and oblique images are obtained from the thoracic inle t to the upper abdomen. Intravenous contrast material was administered as per pulmonary embolism prot ocol. COMMENTS: 3.7x4.2 cm cavitating right hilar mass. Enlarged mediastinal and right hilar lymph nodes. Minimal bilateral pleural effusions. Passive atelectatic airspace disease of the lower lobes. Paraseptal pulmonary emphysema. Bilateral calcified pulmonary granulomas. Groundglass densities of the lower lobes more prominent on the left side. There is excellent opacification of pulmonary arterial system without evidence for pulmonary embolism . Aorta is of normal caliber without evidence for dissection or aneurysm. There is no evidence of pleural or parenchymal mass. The heart and great vessels are within normal l imits. Images of the upper abdomen demonstrate no evidence of adrenal mass. The bony structures are free of lytic or blastic lesions. Multilevel degenerative changes are seen in volving the visualized thoracolumbar spine. Scattered calcifications are seen involving the aorta and major branches compatible with atherosclero sis. IMPRESSION: No evidence for pulmonary embolism. Cavitating right hilar mass suggestive of neoplastic pathology. Mediastinal and hilar lymphadenopathy. Bilateral lower lobes ground glass density suggestive of multifocal pneumonia. Findings are more prom inent in the left lower lobe. Minimal pleural effusions. Thank you for your kind referral of this patient.
[2016-10-26] MEDS ORDERED: PIPERACILLIN/TAZOBACTAM SOD 3.375 GM in D5W MINI-BAG PLUS 50 ML IV ONE (05:30)
--- NOTE | 2016-10-26 05:30 | REPUSA ---
CLINICAL HISTORY: Neck pain. TECHNIQUE: Multiple axial images were obtained through the cervical spine. Images were also reconstru cted in coronal and sagittal planes. The study was performed without IV contrast. COMMENTS: There is no fracture. The paraspinal soft tissues are unremarkable. There are no lytic or blastic les ions. Straightening of cervical lordosis is seen, suggesting muscular spasm. There is evidence of moderate multilevel disk disease, demonstrated by moderate osteophytosis and endplate sclerosis. Moderate multilevel degenerative disc disease. Grade 1 anterolisthesis of C5 on C6. IMPRESSION: No acute bone pathology. Spondylosis. Multilevel degenerative disc disease. Thank you for your kind referral of this patient.
--- NOTE | 2016-10-26 05:40 | REPUSA ---
CLINICAL HISTORY: Back pain. TECHNIQUE: Multiple axial images were obtained through the L1-L2, L2-L3, L3-L4, L4-L5 and L5-S1 inter spaces. Images were also reconstructed in coronal and sagittal planes. COMMENTS: 3.5 mm retrolisthesis of L2 on L3. Mild chronic compression deformity of L4 vertebral body. There is no acute fracture visualized. The paraspinal soft tissues are unremarkable. There are no lyt ic or blastic lesions. Straightening of lumbar lordosis is seen, suggesting muscular spasm. There is evidence of multilevel disk disease, demonstrated by osteophytosis ad endplate sclerosis. Evaluation of individual levels reveals the following: At L2-L3, L3-L4 L4-L5 and L5-S1, broad-based disk protrusion in conjunction with hypertrophic facet d isease results in moderate bilateral foraminal narrowing. Canal is mildly stenotic. Aneurysmal infrarenal aorta with associated calcified atheromatous plaques. IMPRESSION: Spondylosis. Multilevel degenerative disc disease. Multilevel spinal canal or foramina narrowing. Mild chronic compression fracture of L4. Minimal chronic compression fractures of T11, T12 and L1 vertebral bodies. Thank you for your kind referral of this patient.
[2016-10-26] MEDS ORDERED: FERR325T PO (06:29)
[2016-10-26] MEDS ORDERED: NITR4TASL SL (06:29)
[2016-10-26] MEDS ORDERED: AMLO5TAB2 PO (06:29)
[2016-10-26] MEDS ORDERED: FOLI1TAB2 PO (06:29)
[2016-10-26] MEDS ORDERED: IPRATROPIUM 0.02% SOLN 0.5MG/2.5 ML NEB INH PRN (06:30)
[2016-10-26] MEDS ORDERED: LEVALBUTEROL 1.25 MG/0.5 ML CONCENTRATE NEB INH PRN (06:30)
[2016-10-26] MEDS ORDERED: ONDANSETRON 4MG/2ML VIAL (J2405) IV PRN (06:30)
[2016-10-26] MEDS ORDERED: ACETAMINOPHEN TAB 650MG DOSE (2X325MG) PO PRN (06:30)
[2016-10-26] MEDS ORDERED: ONDA4TAB6 PO (06:32)
[2016-10-26] MEDS ORDERED: PROC10TA PO (06:32)
[2016-10-26] MEDS ORDERED: PROCHLORPERAZINE 5 MG TAB (S0183) PO PRN (07:00)
[2016-10-26] MEDS ORDERED: NITROGLYCERIN 0.4 MG SUBL TABLET SL PRN (07:00)
--- NOTE | 2016-10-26 07:19 | HPEPDOC ---
General Date of Admission 10/26/16 Other Providers PCP: OR clinic Attending Physician: CALLUM SOLIS MD Chief Complaint The patient is a 81-year-old male admitted with a reason for visit of Flu/Cold Symptoms. History of Present Illness 81 Y/O M with PMH of COPD, CAD s/p CABG, PAD s/p B/L Iliac Stents, HTN, Dyslipidemia, and recent diagnosis of Squamos Cell Ca of the Right Lung diagnosed in August 2016 s/p Chemotherapy x 3 rounds, and Radiation x 2 rounds over the last few weeks presents to the ER with the chief complaint of cough productive of yellowish sputum since last night. The patient also notes a fever of 103 at home. He denies any chest pain, palpitations, abdominal pain, or any nausea/vomiting/diarrhea. The patient denies any other acute complaints. In the ER, a CTA of the Chest revealed no PE, but did show multifocal pneumonia. The patient will be admitted under the service of Dr. Solis for further evaluation and management. Home Medications Scheduled Amlodipine Besylate (Amlodipine Besylate) 5 Mg Tab 5 MG PO DAILY (Reported) Aspirin (Aspirin 81) 81 Mg Tab 81 MG PO DAILY (Reported) Atenolol (Atenolol) 50 Mg Tab 50 MG PO DAILY (Reported) Atorvastatin Calcium (Atorvastatin Calcium) 10 Mg Tab 10 MG PO DAILY (Reported ) Citalopram Hydrobromide (Citalopram Hydrobromide) 20 Mg Tab 20 MG PO DAILY ( Reported) Ferrous Sulfate (Ferrous Sulfate) 325 Mg Tab 325 MG PO DAILY (Reported) Finasteride (Finasteride) 5 Mg Tab 5 MG PO DAILY (Reported) Folic Acid (Folic Acid) 1 Mg Tab 1 MG PO DAILY (Reported) Furosemide (Furosemide) 20 Mg Tab 20 MG PO BID (Reported) Multivitamins *[facility]* (Thera M Plus *[facility]*) 1 Tab Tab 1 TAB PO DAILY (Reported) Tamsulosin Hydrochloride (Flomax) 0.4 Mg Cap 0.4 MG PO DAILY (Reported) Tramadol HCl (Tramadol HCl) 50 Mg Tab 50 MG PO BID (Reported) Scheduled PRN Albuterol Sulfate (Albuterol Sulfate) 2.5 Mg/3 Ml Nebu 2.5 MG INH Q4H PRN PRN SHORTNESS OF BREATH (Reported) Mirtazapine (Mirtazapine) 30 Mg Tab 30 MG PO QHS PRN PRN SLEEP (Reported) Nitroglycerin (Nitrostat) 0.4 Mg Subl 0.4 MG SL NITRO PRN PRN ANGINA (Reported) Ondansetron (Ondansetron Odt) 4 Mg Tab 4 MG PO Q6H PRN PRN NAUSEA (Reported) Prochlorperazine Maleate (Prochlorperazine Maleate) 10 Mg Tab 10 MG PO Q8H PRN PRN NAUSEA (Reported) Allergies Coded Allergies: Menthol (Unverified Allergy, Unknown, 10/26/16) Past Medical History Medical History As noted in HPI Surgical History 1. Status post partial gastrectomy. 2. Partial colectomy. 3. Status post iliac artery stent. 4. Coronary artery bypass. 5. Back surgery. Family History Patient had four brothers and one sister who have . Patient's father at age 64 due to unknown cause. Patient's mother at age 78 due to cancer. CAD and DM runs in family. Social History * Smoker: other (Smoked 1 PPD for 70+ years) Alcohol: occationally Drugs: denies Review of Symptoms Other systems 10 point ROS negative unless otherwise specified in the HPI Physical Examination General Exam: Positive: Alert, Cooperative, No Acute Distress ENT Exam: Positive: Atraumatic, Mucous membr. moist/pink Neck Exam: Negative: JVD Chest Exam: Positive: Diminished, Rhonchi, Wheezing, Negative: Rales Heart Exam: Positive: Normal S1, Normal S2, Rate Normal Abdomen Exam: Positive: Soft, Negative: Tenderness Extremity Exam: Negative: Swelling, Tenderness Psych Exam: Positive: Oriented x 3 Vital Signs Vital Signs Date Time Temp Pulse Resp B/P Pulse Ox O2 Delivery O2 Flow Rate FiO2 10/26/16 06:29 68 115/56 96 10/26/16 05:28 98.7 18 Nasal Cannula 3 Laboratory Data Labs 24H Laboratory Tests 2 10/26/16 00:28: Anion Gap 5L, White Blood Count 3.9L, Red Blood Count 3.10L, Hemoglobin 9.7L, Hematocrit 28.4L, Mean Corpuscular Volume 91.4, Mean Corpuscular Hemoglobin 31.2 , Mean Corpuscular Hemoglobin Concent 34.1, Red Cell Distribution Width 16.0H, Platelet Count 198, Neutrophils (%) (Auto) 89.7H, Lymphocytes (%) (Auto) 5.0L, Monocytes (%) (Auto) 3.1, Eosinophils (%) (Auto) 0.6, Basophils (%) (Auto) 0.2, Neutrophils # (Auto) 3.5, Lymphocytes # (Auto) 0.2L, Monocytes # (Auto) 0.1, Eosinophils # (Auto) 0.0, Basophils # (Auto) 0.0, Blood Urea Nitrogen 25H, Creatinine 1.06, Sodium Level 140, Potassium Level 4.3, Chloride Level 104, Carbon Dioxide Level 31, Calcium Level 8.9, Total Creatine Kinase 61, Creatine Kinase MB 1.3, Creatine Kinase MB Relative Index 2.13, Glomerular Filtration Rate > 60.0, Large Unclassified Cells # 0.1, Large Unclassified Cells % 1.4, Troponin I < 0.02 10/26/16 01:09: Arterial Blood pH 7.462H, Arterial Blood Partial Pressure CO2 34.6L, Arterial Blood Partial Pressure O2 74.5L, Arterial Blood Total CO2 25.2, Arterial Blood HCO3 24.2, Arterial Blood Base Excess 0.6, Arterial Blood Oxygen Saturation 95.0 , Blood Gas Bicarbonate Standard 25.0 CBC/BMP Laboratory Tests 10/26/16 00:28 Calcium Level 8.9, Total Creatine Kinase 61, Red Blood Count 3.10 L, Mean Corpuscular Volume 91.4, Mean Corpuscular Hemoglobin 31.2, Mean Corpuscular Hemoglobin Concent 34.1, Red Cell Distribution Width 16.0 H, Neutrophils (%) ( Auto) 89.7 H, Lymphocytes (%) (Auto) 5.0 L, Monocytes (%) (Auto) 3.1, Eosinophils (%) (Auto) 0.6, Basophils (%) (Auto) 0.2, Neutrophils # (Auto) 3.5, Lymphocytes # (Auto) 0.2 L, Monocytes # (Auto) 0.1, Eosinophils # (Auto) 0.0, Basophils # (Auto) 0.0 Microbiology Microbiology 10/26/16 Blood Culture, Received Pending 10/26/16 Blood Culture, Received Pending 10/26/16 Influenza Virus Type A Antigen - Final, Complete 10/26/16 Influenza Virus Type B Antigen - Final, Complete Plan / VTE VTE Prophylaxis Ordered?: Yes Plan Plan Multifocal Pneumonia with Underlying Squamos Cell Ca of the Right Lung CTA of the Chest noted Blood Cultures, sputum culture ordered Respiratory Panel Vanco and Zosyn started Lactic Acid level ordered We will cont to down-titrate supplemental oxygen as tolerated Squamos Cell Ca of the Right Lung s/p Chemo + Radiation Follows with Dr. Montes De Oca and Dr. Olivera of Onc, and Rad Onc respectively with most recent sessions being last week COPD Cont Nebs as ordered CAD s/p CABG, PAD s/p B/L Iliac Stents No active chest pain at this time Cont ASA, Statin, Atenolol Cont Lasix HTN, stable Cont current regimen Dyslipidemia Cont statin BPH Cont Flomax, Finasteride DVT prophylaxis- Heparin SC The patient will be admitted under the service of Dr. Solis, who will begin to follow the patient on 10/26/16 @ 7am JACQUELINE MCKOY MD Oct 26, 2016 07:19
[2016-10-26] MEDS: VANCOMYCIN HCL 1,000 MG, VIAL MATE ADAPTER 1 EACH in D5W 250 ML IV SCH ×2 (07:45→20:56)
--- NOTE | 2016-10-26 07:46 | PHACANCOPD ---
PHARMACY VANCOMYCIN DOSING Pt Demographics Demographics Patient Age:81 , Weight: , Gender: male Adjusted Body Weight Date: 10/26/16, Adjusted Body Weight: Kg Events Past 24 Hours Events Past 24 Hours: YES: Fever, Other (10/26/16 CT SCAN REVEALED BILATERAL LOBES GROUND GLASS DENSITY) Vancomycin Vancomycin indication: HCAP Vancomycin Target Ranges: 15-20 mcg/ml Vancomycin Load Y/N: Yes Load Dose Date Time Vancomycin Load Dose: 1500mg Date: 10/26/16 Time: 0800 Vancomycin Dose Date: 10/26/16. Current Vancomycin Dose: [1g IV Q12H] Intermittent Dosing?: No Labs Labs Item Value Date Time White Blood Count 3.9 K/mm3 L 10/26/16 0028 Creatinine 1.06 MG/DL 10/26/16 0028 Blood Urea Nitrogen 25 MG/DL H 10/26/16 0028 Micro Microbiology 10/26/16 Blood Culture, Received Pending 10/26/16 Blood Culture, Received Pending 10/26/16 Influenza Virus Type A Antigen - Final, Complete 10/26/16 Influenza Virus Type B Antigen - Final, Complete Creatinine Clearance Date:10/26/16. Estimated Creatinine Clearance: [~52 ml/min]. Pending Labs Vancomycin trough scheduled 10/27/16@1900, prior to the 4th dose Assessment and Plan Maintaining Current Dose?: Yes Reason for dose change: No Dose Change Pharmacist Note Pharmacist Note Date: 10/26/16. Pharmacist note: Day #1 empiric vancomycin tx initiated with a 1500mg loading dose, 10/26/16@0800, followed by a maintenance regimen of 1g IV Q12H for the treatment of HCAP to be given with empiric zosyn - aiming for a goal trough of 15-20mcg/ml. The patient has a PMH of COPD and squamous cell cancer of the right lung diagnosed 08/2016 s/p x3 rounds of chemo and x2 rounds of radiation. WBC is low s/p chemo, and the patient has been febrile within the past 24 hours. 10/26/16 CT scan showed "bilateral lower lobes ground glass densities suggestive of multifocal PNA more prominent in the LLL." No PMH of MRSA or vanco use here at [facility]. A vancomycin trough has been scheduled 10/27/16 @ 1900, prior to the 4th dose. We will continue to monitor and make adjustments as needed. DAYANNA HAYNES [facility]ARMAC[facility] Oct 26, 2016 07:46
[2016-10-26 08:00] VITALS: BP 107/57
[2016-10-26] MEDS: LEVALBUTEROL 1.25 MG/0.5 ML CONCENTRATE NEB INH SCH ×5 (08:16→23:35)
[2016-10-26] MEDS: IPRATROPIUM 0.02% SOLN 0.5MG/2.5 ML NEB INH SCH ×5 (08:16→23:35)
--- NOTE | 2016-10-26 08:37 | REP ---
Chest x-ray: Two views. History: Dyspnea and cough. Comparison study: September 19, 2016. Findings: Patient is status post prior median sternotomy. There are surgical clips in the left upper quadrant and right upper quadrant of the abdomen as well. There are scattered granulomatous calcifications in the lung vega bilaterally as before. The heart is not enlarged. There is a hazy interstitial opacity in the left base on today's radiographs consistent with left lower lobe pneumonia. No pleural effusion is seen. Lung vega are otherwise unchanged. EKG monitoring electrodes and oxygen delivery tubing are seen. Impression: New infiltrate left lower lobe compatible with pneumonia. Signed by Arpit Prabhakar MD 10/26/2016 01:37 P
[2016-10-26] MEDS ORDERED: VANCOMYCIN HCL 500 MG in D5W MINI-BAG PLUS 100 ML IV ONE (09:00)
[2016-10-26 10:14] LABS: MEAN CORPUSCULAR HEMOGLOBIN 31.3 pg (27.0-33.0); MEAN CORPUSCULAR HGB CONC 34.2 g/dl (32.0-36.5); MEAN CORPUSCULAR VOLUME 91.3 fl (80.0-96.0); RED CELL DISTRIBUTION WIDTH 16.5 % (11.5-14.5); WHITE BLOOD COUNT 5.7 K/mm3 (4.0-10.0)
[2016-10-26 10:24] LABS: ANION GAP 7 MEQ/L (8-16); BLOOD UREA NITROGEN 24 MG/DL (7-18); CALCIUM LEVEL 8.1 MG/DL (8.8-10.2); CARBON DIOXIDE LEVEL 28 MEQ/L (21-32); CHLORIDE LEVEL 101 MEQ/L (98-107); CREATININE FOR GFR 0.95 MG/DL (0.70-1.30); GLOMERULAR FILTRATION RATE > 60.0 (>35); GLUCOSE, FASTING 131 MG/DL (83-110); MAGNESIUM LEVEL 1.9 MG/DL (1.8-2.4); POTASSIUM SERUM 4.2 MEQ/L (3.5-5.1); SODIUM LEVEL 136 MEQ/L (136-145)
[2016-10-26] MEDS: CitaloPRAM (CeleXA) 20 MG TAB PO SCH (10:57)
[2016-10-26] MEDS: TAMSULOSIN 0.4 MG CAP PO SCH (10:57)
[2016-10-26] MEDS: HEPARIN SOD (PORCINE) 5000 UNITS/ML VIAL SC SCH ×3 (10:57→21:02)
[2016-10-26] MEDS: MULTIVITAMINS/MINERALS THERAP 1 TAB PO SCH (10:57)
[2016-10-26] MEDS: traMADol 50 MG TAB PO SCH ×2 (10:58→20:57)
[2016-10-26] MEDS: ASPIRIN 81 MG ENTERIC TAB PO SCH (10:58)
[2016-10-26] MEDS: ATENOLOL 50 MG TAB PO SCH (10:58)
[2016-10-26] MEDS: amLODIPine 5 MG TAB PO SCH (10:59)
[2016-10-26] MEDS: FOLIC ACID 1 MG TAB PO SCH (10:59)
[2016-10-26] MEDS: FUROSEMIDE 20 MG TAB PO SCH ×2 (10:59→17:19)
[2016-10-26] MEDS: ATORVASTATIN 10 MG TAB PO SCH (12:25)
[2016-10-26] MEDS: FINASTERIDE 5 MG TAB PO SCH (12:25)
[2016-10-26] MEDS: PIPERACILLIN/TAZOBACTAM SOD 3.375 GM in D5W MINI-BAG PLUS 50 ML IV SCH ×2 (12:25→17:19)
[2016-10-26] MEDS: FERROUS SULFATE 325MG TAB PO SCH (12:25)
[2016-10-26 15:20] VITALS: BP 129/61
[2016-10-26] MEDS ORDERED: PERCOCET 5MG/325MG TAB PO PRN (16:00)
[2016-10-26] MEDS: LIDOCAINE 5% (LIDODERM) PATCH TD SCH (17:19)
--- NOTE | 2016-10-26 20:57 | ECGEPIP ---
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
[2016-10-26] MEDS: **NOTE PATIENT COMMENT** MISC XX SCH (20:58)
[2016-10-26] MEDS: MIRTAZAPINE 15 MG TAB PO PRN (21:10)
[2016-10-26 22:00] VITALS: BP 111/56
[2016-10-27] MEDS: PIPERACILLIN/TAZOBACTAM SOD 3.375 GM in D5W MINI-BAG PLUS 50 ML IV SCH ×5 (00:12→23:07)
[2016-10-27] MEDS: LEVALBUTEROL 1.25 MG/0.5 ML CONCENTRATE NEB INH SCH ×6 (04:15→23:02)
[2016-10-27] MEDS: IPRATROPIUM 0.02% SOLN 0.5MG/2.5 ML NEB INH SCH ×6 (04:15→23:02)
[2016-10-27 05:32] LABS: BASO % 0.1 % (0.0-1.0); LARGE UNSTAINED CELL # 0.1 K/mm3 (0.0-0.4); LARGE UNSTAINED CELL % 1.3 % (0.0-4.0); LYMPH # 0.5 K/mm3 (1.5-4.5); LYMPH % 9.4 % (24.0-44.0); MEAN CORPUSCULAR HEMOGLOBIN 30.8 pg (27.0-33.0); MEAN CORPUSCULAR HGB CONC 33.1 g/dl (32.0-36.5); MEAN CORPUSCULAR VOLUME 93.1 fl (80.0-96.0); MONO # 0.2 K/mm3 (0.0-0.8); MONO % 3.2 % (0.0-5.0); NEUTROPHILS # 4.7 K/mm3 (1.8-7.7); PLATELET COUNT, AUTOMATED 140 k/mm3 (150-450); RED CELL DISTRIBUTION WIDTH 16.2 % (11.5-14.5); WHITE BLOOD COUNT 5.5 K/mm3 (4.0-10.0)
[2016-10-27] MEDS: HEPARIN SOD (PORCINE) 5000 UNITS/ML VIAL SC SCH ×3 (05:53→22:07)
[2016-10-27 05:58] LABS: ANION GAP 7 MEQ/L (8-16); BLOOD UREA NITROGEN 19 MG/DL (7-18); CALCIUM LEVEL 7.6 MG/DL (8.8-10.2); CARBON DIOXIDE LEVEL 26 MEQ/L (21-32); CHLORIDE LEVEL 101 MEQ/L (98-107); CREATININE FOR GFR 0.88 MG/DL (0.70-1.30); GLOMERULAR FILTRATION RATE > 60.0 (>35); GLUCOSE, FASTING 143 MG/DL (83-110); POTASSIUM SERUM 3.8 MEQ/L (3.5-5.1); SODIUM LEVEL 134 MEQ/L (136-145)
[2016-10-27 06:00] VITALS: BP 130/59
[2016-10-27] MEDS: VANCOMYCIN HCL 1,000 MG, VIAL MATE ADAPTER 1 EACH in D5W 250 ML IV SCH ×2 (08:29→20:11)
[2016-10-27] MEDS: FOLIC ACID 1 MG TAB PO SCH (08:30)
[2016-10-27] MEDS: FINASTERIDE 5 MG TAB PO SCH (08:30)
[2016-10-27] MEDS: TAMSULOSIN 0.4 MG CAP PO SCH (08:30)
[2016-10-27] MEDS: traMADol 50 MG TAB PO SCH ×2 (08:30→20:12)
[2016-10-27] MEDS: ASPIRIN 81 MG ENTERIC TAB PO SCH (08:31)
[2016-10-27] MEDS: CitaloPRAM (CeleXA) 20 MG TAB PO SCH (08:31)
[2016-10-27] MEDS: FUROSEMIDE 20 MG TAB PO SCH ×2 (08:31→17:08)
[2016-10-27] MEDS: FERROUS SULFATE 325MG TAB PO SCH (08:31)
[2016-10-27] MEDS: MULTIVITAMINS/MINERALS THERAP 1 TAB PO SCH (08:31)
[2016-10-27] MEDS: amLODIPine 5 MG TAB PO SCH (08:31)
[2016-10-27] MEDS: ATORVASTATIN 10 MG TAB PO SCH (08:31)
[2016-10-27] MEDS: ATENOLOL 50 MG TAB PO SCH (08:32)
[2016-10-27] MEDS: LIDOCAINE 5% (LIDODERM) PATCH TD SCH (08:32)
--- NOTE | 2016-10-27 10:04 | IPNPDOC ---
Subjective Date Seen The patient was seen on 10/27/16. Subjective Chief Complaint/HPI The patient is a 81-year-old male admitted with a reason for visit of HCAP. General: Denies: Chills Eyes: Denies: Conjunctivae inflammation, Eyelid inflammation, Pain, Vision change Skin: Denies: Lesions, Rash Pulmonary: Reports: Cough, Denies: Dyspnea Cardiovascular: Denies: Chest Pain, Palpitations Gastrointestinal: Denies: Abdominal Pain, Constipation, Diarrhea, Nausea, Vomiting Neurological: Denies: Weakness Psych: Reports: Mood Normal Objective Physical Examination General Exam: Positive: Alert, Cooperative, No Acute Distress ENT Exam: Positive: Atraumatic, Mucous membr. moist/pink Neck Exam: Negative: JVD Chest Exam: Positive: Diminished, Rhonchi, Wheezing Heart Exam: Positive: Normal S1, Normal S2, Rate Normal Abdomen Exam: Positive: Normal bowel sounds, Soft, Negative: BS Hyperactive, BS Hypoactive, Tenderness Extremity Exam: Negative: Swelling, Tenderness Skin Exam: Positive: Nl turgor and temperature Psych Exam: Positive: Oriented x 3 Assessment /Plan Problems (1) COPD (chronic obstructive pulmonary disease) Status: Chronic Response to Treatment: Stable Problem Text: Oxygen orders 95% on 2L duoneb therapy continue to monitor (2) Hypoxia Status: Acute Response to Treatment: Stable Problem Text: 95% on 2 L Oxygen therapy orders continue to monitor (3) Pneumonia Status: Acute Response to Treatment: Stable Problem Text: zosyn/vanc antibiotic therapy 98.3 F wbc 5.5 resp panel negative sputum culture pending gram + cocci in pairs blood cx neg 24 hrs (4) HTN (hypertension) Status: Chronic Response to Treatment: Stable Problem Text: 130/59 c/w norvasc, atenolol and atorvastatin continue to monitor (5) Lung cancer Status: Chronic Response to Treatment: Stable Problem Text: s/p chemo and radiation treatment, follows with local oncology and radiology doctor in [facility] continue to monitor (6) DVT prophylaxis Status: Acute Plan/VTE VTE Prophylaxis Ordered?: Yes VS, I&O, 24H, Fishbone Vital Signs/I&O Vital Signs Date Time Temp Pulse Resp B/P Pulse Ox O2 Delivery O2 Flow Rate FiO2 10/27/16 08:31 81 130/59 10/27/16 08:30 18 Nasal Cannula 2.0 10/27/16 06:00 98.3 95 I&O- Last 24 Hours up to 6 AM 10/27/16 05:59 Intake Total 1220 ml Output Total 2100 ml Balance -880 ml Laboratory Data 24H LABS Laboratory Tests 2 10/26/16 09:58: Anion Gap 7L, Blood Urea Nitrogen 24H, Creatinine 0.95, Sodium Level 136, Potassium Level 4.2, Chloride Level 101, Carbon Dioxide Level 28, Calcium Level 8.1L, Glomerular Filtration Rate > 60.0, Lactic Acid Level 1.8, Magnesium Level 1.9 10/27/16 04:54: Anion Gap 7L, Blood Urea Nitrogen 19H, Creatinine 0.88, Sodium Level 134L, Potassium Level 3.8, Chloride Level 101, Carbon Dioxide Level 26, Calcium Level 7.6L, Glomerular Filtration Rate > 60.0, White Blood Count 5.5, Red Blood Count 2.63L, Hemoglobin 8.1L, Hematocrit 24.5L, Mean Corpuscular Volume 93.1, Mean Corpuscular Hemoglobin 30.8, Mean Corpuscular Hemoglobin Concent 33.1, Red Cell Distribution Width 16.2H, Platelet Count 140L, Neutrophils (%) (Auto) 85.0H, Lymphocytes (%) (Auto) 9.4L, Monocytes (%) (Auto) 3.2, Eosinophils (%) (Auto) 1.0, Basophils (%) (Auto) 0.1, Neutrophils # (Auto) 4.7, Lymphocytes # (Auto) 0.5L, Monocytes # (Auto) 0.2, Eosinophils # (Auto) 0.0, Basophils # (Auto) 0.0, Large Unclassified Cells # 0.1, Large Unclassified Cells % 1.3 CBC/BMP Laboratory Tests 10/26/16 09:58 Calcium Level 8.1 L, Red Blood Count 2.62 L, Mean Corpuscular Volume 91.3, Mean Corpuscular Hemoglobin 31.3, Mean Corpuscular Hemoglobin Concent 34.2, Red Cell Distribution Width 16.5 H 10/27/16 04:54 Calcium Level 7.6 L, Red Blood Count 2.63 L, Mean Corpuscular Volume 93.1, Mean Corpuscular Hemoglobin 30.8, Mean Corpuscular Hemoglobin Concent 33.1, Red Cell Distribution Width 16.2 H, Neutrophils (%) (Auto) 85.0 H, Lymphocytes (%) (Auto ) 9.4 L, Monocytes (%) (Auto) 3.2, Eosinophils (%) (Auto) 1.0, Basophils (%) ( Auto) 0.1, Neutrophils # (Auto) 4.7, Lymphocytes # (Auto) 0.5 L, Monocytes # ( Auto) 0.2, Eosinophils # (Auto) 0.0, Basophils # (Auto) 0.0 Microbiology Microbiology 10/26/16 Blood Culture - Preliminary, Resulted No growth after 24 hours . All specim... 10/26/16 Blood Culture - Preliminary, Resulted No growth after 24 hours . All specim... 10/26/16 Respiratory Virus Panel (PCR) ([facility]) - Final, Complete 10/26/16 Gram Stain - Final, Resulted 10/26/16 Sputum Culture, Resulted Pending 10/26/16 Influenza Virus Type A Antigen - Final, Complete 10/26/16 Influenza Virus Type B Antigen - Final, Complete GME ATTESTATION GME ATTESTATION My preceptor for this patient encounter was physically present in the building during the encounter and was fully available. As needed, all aspects of the patient interview, examination, medical decision making process, and medical care plan development were reviewed and approved by the preceptor. Preceptor is aware and concurs with the plan as stated in the body of this note and will attest to such by his/her cosignature. DAVE HARO DO Oct 27, 2016 10:03
[2016-10-27] MEDS ORDERED: PERCOCET 5MG/325MG TAB PO PRN (11:00)
[2016-10-27] MEDS: PERCOCET 5MG/325MG TAB PO PRN ×2 (11:28→22:07)
[2016-10-27 14:00] VITALS: BP 112/56
[2016-10-27 19:16] VITALS: O2SAT 97
[2016-10-27] MEDS: **NOTE PATIENT COMMENT** MISC XX SCH (20:11)
[2016-10-27 20:40] VITALS: BP 154/69
[2016-10-27] MEDS: MIRTAZAPINE 15 MG TAB PO PRN (22:07)
[2016-10-28] MEDS: IPRATROPIUM 0.02% SOLN 0.5MG/2.5 ML NEB INH SCH ×6 (03:42→23:36)
[2016-10-28] MEDS: LEVALBUTEROL 1.25 MG/0.5 ML CONCENTRATE NEB INH SCH ×6 (03:42→23:37)
[2016-10-28 05:05] VITALS: BP 152/68
[2016-10-28] MEDS: HEPARIN SOD (PORCINE) 5000 UNITS/ML VIAL SC SCH ×3 (05:15→22:19)
[2016-10-28] MEDS: PIPERACILLIN/TAZOBACTAM SOD 3.375 GM in D5W MINI-BAG PLUS 50 ML IV SCH ×4 (05:15→23:46)
[2016-10-28 06:31] LABS: BASO % 0.2 % (0.0-1.0); EOS % 1.4 % (0.0-3.0); LYMPH # 0.4 K/mm3 (1.5-4.5); LYMPH % 9.5 % (24.0-44.0); MEAN CORPUSCULAR HEMOGLOBIN 30.8 pg (27.0-33.0); MEAN CORPUSCULAR HGB CONC 33.5 g/dl (32.0-36.5); MEAN CORPUSCULAR VOLUME 91.8 fl (80.0-96.0); MONO # 0.2 K/mm3 (0.0-0.8); MONO % 4.6 % (0.0-5.0); NEUTROPHILS # 3.2 K/mm3 (1.8-7.7); NEUTROPHILS % 83.3 % (36.0-66.0); PLATELET COUNT, AUTOMATED 141 k/mm3 (150-450); RED CELL DISTRIBUTION WIDTH 16.3 % (11.5-14.5); WHITE BLOOD COUNT 3.9 K/mm3 (4.0-10.0)
[2016-10-28 06:58] LABS: ANION GAP 5 MEQ/L (8-16); BLOOD UREA NITROGEN 15 MG/DL (7-18); CALCIUM LEVEL 8.5 MG/DL (8.8-10.2); CARBON DIOXIDE LEVEL 32 MEQ/L (21-32); CHLORIDE LEVEL 100 MEQ/L (98-107); CREATININE FOR GFR 0.92 MG/DL (0.70-1.30); GLOMERULAR FILTRATION RATE > 60.0 (>35); GLUCOSE, FASTING 120 MG/DL (83-110); POTASSIUM SERUM 3.8 MEQ/L (3.5-5.1); SODIUM LEVEL 137 MEQ/L (136-145)
--- NOTE | 2016-10-28 07:57 | IPNPDOC ---
Subjective Date Seen The patient was seen on 10/28/16. Subjective Chief Complaint/HPI The patient is a 81-year-old male admitted with a reason for visit of HCAP. General: Denies: Chills Constitutional: Denies: Chills Eyes: Denies: Conjunctivae inflammation, Eyelid inflammation, Pain, Vision change Pulmonary: Reports: Cough, Dyspnea (with ambulation, states a bit better from day prior) Cardiovascular: Denies: Chest Pain, Edema, Orthopnea, Palpitations Gastrointestinal: Denies: Abdominal Pain, Constipation, Diarrhea, Nausea, Vomiting Neurological: Denies: Numbness, Weakness Psych: Reports: Mood Normal Objective Physical Examination General Exam: Positive: Alert, Cooperative, No Acute Distress ENT Exam: Positive: Atraumatic, Mucous membr. moist/pink Neck Exam: Negative: JVD Chest Exam: Positive: Diminished, Rhonchi, Wheezing Heart Exam: Positive: Normal S1, Normal S2, Rate Normal Abdomen Exam: Positive: Normal bowel sounds, Soft, Negative: BS Hyperactive, BS Hypoactive, Tenderness Extremity Exam: Negative: Swelling, Tenderness Skin Exam: Positive: Nl turgor and temperature Psych Exam: Positive: Oriented x 3 Assessment /Plan Problems (1) COPD (chronic obstructive pulmonary disease) Status: Chronic Response to Treatment: Stable Problem Text: Oxygen orders 97% on 2L duoneb therapy continue to monitor (2) Hypoxia Status: Acute Response to Treatment: Stable Problem Text: 95% on 2 L Oxygen therapy orders continue to monitor (3) Pneumonia Status: Acute Response to Treatment: Stable Problem Text: zosyn/vanc antibiotic therapy 98.2 F wbc 3.9 resp panel negative sputum culture pending gram + cocci in pairs blood cx. neg 48 hrs (4) HTN (hypertension) Status: Chronic Response to Treatment: Stable Problem Text: 152/68 c/w norvasc, atenolol and atorvastatin continue to monitor (5) Lung cancer Status: Chronic Response to Treatment: Stable Problem Text: s/p chemo and radiation treatment, follows with local oncology and radiology doctor in town continue to monitor (6) DVT prophylaxis Status: Acute Response to Treatment: Stable Problem Text: SCD TEDS Plan/VTE VTE Prophylaxis Ordered?: Yes VS, I&O, 24H, Fishbone Vital Signs/I&O Vital Signs Date Time Temp Pulse Resp B/P Pulse Ox O2 Delivery O2 Flow Rate FiO2 10/28/16 05:05 98.2 64 18 152/68 97 Nasal Cannula 2.0 I&O- Last 24 Hours up to 6 AM 10/28/16 06:00 Intake Total 2180 ml Output Total 2350 ml Balance -170 ml Laboratory Data 24H LABS Laboratory Tests 2 10/27/16 18:57: Vancomycin Level Trough 16.3 10/28/16 05:26: Anion Gap 5L, White Blood Count 3.9L, Red Blood Count 2.63L, Hemoglobin 8.1L, Hematocrit 24.1L, Mean Corpuscular Volume 91.8, Mean Corpuscular Hemoglobin 30.8 , Mean Corpuscular Hemoglobin Concent 33.5, Red Cell Distribution Width 16.3H, Platelet Count 141L, Neutrophils (%) (Auto) 83.3H, Lymphocytes (%) (Auto) 9.5L, Monocytes (%) (Auto) 4.6, Eosinophils (%) (Auto) 1.4, Basophils (%) (Auto) 0.2, Neutrophils # (Auto) 3.2, Lymphocytes # (Auto) 0.4L, Monocytes # (Auto) 0.2, Eosinophils # (Auto) 0.0, Basophils # (Auto) 0.0, Blood Urea Nitrogen 15, Creatinine 0.92, Sodium Level 137, Potassium Level 3.8, Chloride Level 100, Carbon Dioxide Level 32, Calcium Level 8.5L, Glomerular Filtration Rate > 60.0, Large Unclassified Cells # 0.0, Large Unclassified Cells % 1.0 CBC/BMP Laboratory Tests 10/28/16 05:26 Calcium Level 8.5 L, Red Blood Count 2.63 L, Mean Corpuscular Volume 91.8, Mean Corpuscular Hemoglobin 30.8, Mean Corpuscular Hemoglobin Concent 33.5, Red Cell Distribution Width 16.3 H, Neutrophils (%) (Auto) 83.3 H, Lymphocytes (%) (Auto ) 9.5 L, Monocytes (%) (Auto) 4.6, Eosinophils (%) (Auto) 1.4, Basophils (%) ( Auto) 0.2, Neutrophils # (Auto) 3.2, Lymphocytes # (Auto) 0.4 L, Monocytes # ( Auto) 0.2, Eosinophils # (Auto) 0.0, Basophils # (Auto) 0.0 Microbiology Microbiology 10/26/16 Blood Culture - Preliminary, Resulted No Growth after 48 hours. All Specime... 10/26/16 Blood Culture - Preliminary, Resulted No Growth after 48 hours. All Specime... 10/26/16 Respiratory Virus Panel (PCR) ([facility]) - Final, Complete 10/26/16 Gram Stain - Final, Resulted 10/26/16 Sputum Culture - Preliminary, Resulted Escherichia Coli#2 10/26/16 Influenza Virus Type A Antigen - Final, Complete 10/26/16 Influenza Virus Type B Antigen - Final, Complete GME ATTESTATION GME ATTESTATION My preceptor for this patient encounter was physically present in the building during the encounter and was fully available. As needed, all aspects of the patient interview, examination, medical decision making process, and medical care plan development were reviewed and approved by the preceptor. Preceptor is aware and concurs with the plan as stated in the body of this note and will attest to such by his/her cosignature. DAVE HARO DO Oct 28, 2016 07:57
[2016-10-28] MEDS: VANCOMYCIN HCL 1,000 MG, VIAL MATE ADAPTER 1 EACH in D5W 250 ML IV SCH ×2 (08:00→20:09)
[2016-10-28] MEDS: traMADol 50 MG TAB PO SCH ×2 (08:01→20:10)
[2016-10-28] MEDS: MULTIVITAMINS/MINERALS THERAP 1 TAB PO SCH (08:01)
[2016-10-28] MEDS: FUROSEMIDE 20 MG TAB PO SCH ×2 (08:01→17:15)
[2016-10-28] MEDS: amLODIPine 5 MG TAB PO SCH (08:01)
[2016-10-28] MEDS: FERROUS SULFATE 325MG TAB PO SCH (08:02)
[2016-10-28] MEDS: ATENOLOL 50 MG TAB PO SCH (08:02)
[2016-10-28] MEDS: CitaloPRAM (CeleXA) 20 MG TAB PO SCH (08:02)
[2016-10-28] MEDS: FINASTERIDE 5 MG TAB PO SCH (08:02)
[2016-10-28] MEDS: TAMSULOSIN 0.4 MG CAP PO SCH (08:02)
[2016-10-28] MEDS: FOLIC ACID 1 MG TAB PO SCH (08:02)
[2016-10-28] MEDS: ATORVASTATIN 10 MG TAB PO SCH (08:02)
[2016-10-28] MEDS: ASPIRIN 81 MG ENTERIC TAB PO SCH (08:02)
[2016-10-28] MEDS: LIDOCAINE 5% (LIDODERM) PATCH TD SCH (08:06)
[2016-10-28 14:00] VITALS: BP 173/75
[2016-10-28] MEDS: PERCOCET 5MG/325MG TAB PO PRN (14:44)
[2016-10-28] MEDS: **NOTE PATIENT COMMENT** MISC XX SCH (20:10)
[2016-10-28 20:55] VITALS: BP 151/69
[2016-10-28] MEDS: MIRTAZAPINE 15 MG TAB PO PRN (22:19)
[2016-10-29] MEDS: LEVALBUTEROL 1.25 MG/0.5 ML CONCENTRATE NEB INH SCH ×6 (03:07→23:25)
[2016-10-29] MEDS: IPRATROPIUM 0.02% SOLN 0.5MG/2.5 ML NEB INH SCH ×6 (03:07→23:25)
[2016-10-29] MEDS: PIPERACILLIN/TAZOBACTAM SOD 3.375 GM in D5W MINI-BAG PLUS 50 ML IV SCH ×3 (05:51→17:57)
[2016-10-29] MEDS: HEPARIN SOD (PORCINE) 5000 UNITS/ML VIAL SC SCH ×3 (05:51→21:38)
[2016-10-29 06:04] LABS: BASO % 0.2 % (0.0-1.0); EOS % 1.2 % (0.0-3.0); LARGE UNSTAINED CELL # 0.1 K/mm3 (0.0-0.4); LARGE UNSTAINED CELL % 1.8 % (0.0-4.0); LYMPH # 0.5 K/mm3 (1.5-4.5); LYMPH % 12.2 % (24.0-44.0); MEAN CORPUSCULAR HEMOGLOBIN 31.3 pg (27.0-33.0); MEAN CORPUSCULAR HGB CONC 33.6 g/dl (32.0-36.5); MEAN CORPUSCULAR VOLUME 93.2 fl (80.0-96.0); MONO # 0.2 K/mm3 (0.0-0.8); MONO % 4.8 % (0.0-5.0); NEUTROPHILS # 3.2 K/mm3 (1.8-7.7); NEUTROPHILS % 79.7 % (36.0-66.0); PLATELET COUNT, AUTOMATED 152 k/mm3 (150-450); RED CELL DISTRIBUTION WIDTH 16.2 % (11.5-14.5)
[2016-10-29 06:31] LABS: ANION GAP 5 MEQ/L (8-16); BLOOD UREA NITROGEN 12 MG/DL (7-18); CALCIUM LEVEL 8.7 MG/DL (8.8-10.2); CARBON DIOXIDE LEVEL 34 MEQ/L (21-32); CHLORIDE LEVEL 99 MEQ/L (98-107); GLOMERULAR FILTRATION RATE > 60.0 (>35); GLUCOSE, FASTING 121 MG/DL (83-110); SODIUM LEVEL 138 MEQ/L (136-145)
[2016-10-29 06:40] VITALS: BP 117/57
[2016-10-29 06:41] LABS: POTASSIUM SERUM 4.9 MEQ/L (3.5-5.1)
--- NOTE | 2016-10-29 08:58 | IPNPDOC ---
Subjective Date Seen The patient was seen on 10/29/16. Subjective Chief Complaint/HPI The patient is a 81-year-old male admitted with a reason for visit of HCAP. General: Denies: Chills Constitutional: Denies: Chills Eyes: Denies: Conjunctivae inflammation, Eyelid inflammation, Vision change Skin: Denies: Lesions, Rash Pulmonary: Reports: Cough (pt states cough is getting better), Dyspnea (pt states SOB is improving, present w/ ambulation which is baseline) Cardiovascular: Denies: Chest Pain, Palpitations Gastrointestinal: Denies: Abdominal Pain, Nausea, Vomiting Neurological: Denies: Weakness Psych: Reports: Mood Normal Objective Physical Examination General Exam: Positive: Alert, Cooperative, No Acute Distress ENT Exam: Positive: Atraumatic, Mucous membr. moist/pink Neck Exam: Negative: JVD Chest Exam: Positive: Diminished, Rhonchi, Wheezing Heart Exam: Positive: Normal S1, Normal S2, Rate Normal Abdomen Exam: Positive: Normal bowel sounds, Soft, Negative: BS Hyperactive, BS Hypoactive, Tenderness Extremity Exam: Negative: Swelling, Tenderness Skin Exam: Positive: Nl turgor and temperature Psych Exam: Positive: Oriented x 3 Assessment /Plan Problems (1) COPD (chronic obstructive pulmonary disease) Status: Chronic Response to Treatment: Stable Problem Text: pt was sitting upright in bed, with O2 off, stated he was doing well and not SOB 97% on room air Oxygen orders 97% on 2L duoneb therapy continue to monitor (2) Hypoxia Status: Acute Response to Treatment: Stable Problem Text: pt doing well today, sitting upright in bed, not distressed, not SOB or labored, has O2 off of him. 97% on room air was 95% on 2 L Oxygen therapy orders continue to monitor (3) Pneumonia Status: Acute Response to Treatment: Stable Problem Text: sputum + E.coli c/w zosyn d/c vanc antibiotic therapy 99.0 F wbc 4.0 resp panel negative sputum culture + e. coli d/c vanco, c/w zosyn for above coverage gram + cocci in pairs blood cx. neg 72 hrs (4) HTN (hypertension) Status: Chronic Response to Treatment: Stable Problem Text: 117/57 c/w norvasc, atenolol and atorvastatin continue to monitor (5) Lung cancer Status: Chronic Response to Treatment: Stable Problem Text: s/p chemo and radiation treatment, follows with local oncology and radiology doctor in town continue to monitor (6) DVT prophylaxis Status: Acute Response to Treatment: Stable Problem Text: SCD TEDS Plan/VTE VTE Prophylaxis Ordered?: Yes VS, [facility]O Vital Signs Date Time Temp Pulse Resp B/P Pulse Ox O2 Delivery O2 Flow Rate FiO2 10/29/16 06:40 99.0 76 17 117/57 97 Room Air 10/28/16 20:55 2.0 I&O- Last 24 Hours up to 6 AM 10/29/16 06:00 Intake Total 3790 ml Output Total 4200 ml Balance -410 ml Laboratory Data 24H LABS Laboratory Tests 2 10/29/16 05:12: Anion Gap 5L, White Blood Count 4.0, Red Blood Count 2.90L, Hemoglobin 9.1L, Hematocrit 27.0L, Mean Corpuscular Volume 93.2, Mean Corpuscular Hemoglobin 31.3 , Mean Corpuscular Hemoglobin Concent 33.6, Red Cell Distribution Width 16.2H, Platelet Count 152, Neutrophils (%) (Auto) 79.7H, Lymphocytes (%) (Auto) 12.2L, Monocytes (%) (Auto) 4.8, Eosinophils (%) (Auto) 1.2, Basophils (%) (Auto) 0.2, Neutrophils # (Auto) 3.2, Lymphocytes # (Auto) 0.5L, Monocytes # (Auto) 0.2, Eosinophils # (Auto) 0.0, Basophils # (Auto) 0.0, Blood Urea Nitrogen 12, Creatinine 1.00, Sodium Level 138, Potassium Level 4.9#, Chloride Level 99, Carbon Dioxide Level 34H, Calcium Level 8.7L, Glomerular Filtration Rate > 60.0 , Large Unclassified Cells # 0.1, Large Unclassified Cells % 1.8 CBC/BMP Laboratory Tests 10/29/16 05:12 Calcium Level 8.7 L, Red Blood Count 2.90 L, Mean Corpuscular Volume 93.2, Mean Corpuscular Hemoglobin 31.3, Mean Corpuscular Hemoglobin Concent 33.6, Red Cell Distribution Width 16.2 H, Neutrophils (%) (Auto) 79.7 H, Lymphocytes (%) (Auto ) 12.2 L, Monocytes (%) (Auto) 4.8, Eosinophils (%) (Auto) 1.2, Basophils (%) ( Auto) 0.2, Neutrophils # (Auto) 3.2, Lymphocytes # (Auto) 0.5 L, Monocytes # ( Auto) 0.2, Eosinophils # (Auto) 0.0, Basophils # (Auto) 0.0 Microbiology Microbiology 10/26/16 Blood Culture - Preliminary, Resulted No Growth after 72 hours. All specime... 10/26/16 Blood Culture - Preliminary, Resulted No Growth after 72 hours. All specime... 10/26/16 Respiratory Virus Panel (PCR) ([facility]) - Final, Complete 10/26/16 Gram Stain - Final, Complete 10/26/16 Sputum Culture - Final, Complete Escherichia Coli#2 Enterobacter Cloacae Complex 10/26/16 Influenza Virus Type A Antigen - Final, Complete 10/26/16 Influenza Virus Type B Antigen - Final, Complete GME ATTESTATION GME ATTESTATION My preceptor for this patient encounter was physically present in the building during the encounter and was fully available. As needed, all aspects of the patient interview, examination, medical decision making process, and medical care plan development were reviewed and approved by the preceptor. Preceptor is aware and concurs with the plan as stated in the body of this note and will attest to such by his/her cosignature. DAVE HARO DO Oct 29, 2016 08:58
[2016-10-29 10:00] VITALS: BP 150/79
[2016-10-29] MEDS: CitaloPRAM (CeleXA) 20 MG TAB PO SCH (11:44)
[2016-10-29] MEDS: ASPIRIN 81 MG ENTERIC TAB PO SCH (11:45)
[2016-10-29] MEDS: FINASTERIDE 5 MG TAB PO SCH (11:45)
[2016-10-29] MEDS: MULTIVITAMINS/MINERALS THERAP 1 TAB PO SCH (11:45)
[2016-10-29] MEDS: FOLIC ACID 1 MG TAB PO SCH (11:45)
[2016-10-29] MEDS: ATORVASTATIN 10 MG TAB PO SCH (11:46)
[2016-10-29] MEDS: TAMSULOSIN 0.4 MG CAP PO SCH (11:46)
[2016-10-29] MEDS: amLODIPine 5 MG TAB PO SCH (11:46)
[2016-10-29 11:47] VITALS: BP 150/79
[2016-10-29] MEDS: ATENOLOL 50 MG TAB PO SCH (11:47)
[2016-10-29] MEDS: FUROSEMIDE 20 MG TAB PO SCH ×2 (11:47→16:42)
[2016-10-29] MEDS: FERROUS SULFATE 325MG TAB PO SCH (11:47)
[2016-10-29] MEDS: LIDOCAINE 5% (LIDODERM) PATCH TD SCH (11:49)
[2016-10-29] MEDS: traMADol 50 MG TAB PO SCH ×2 (12:09→20:33)
[2016-10-29 14:18] VITALS: BP 118/63
[2016-10-29] MEDS: **NOTE PATIENT COMMENT** MISC XX SCH (20:33)
[2016-10-29] MEDS: MIRTAZAPINE 15 MG TAB PO PRN (20:33)
[2016-10-29 20:55] VITALS: BP 134/60
[2016-10-29] MEDS: zolPIDEM TARTRATE 5 MG TAB PO SCH (21:38)
[2016-10-30] MEDS: PIPERACILLIN/TAZOBACTAM SOD 3.375 GM in D5W MINI-BAG PLUS 50 ML IV SCH ×4 (00:48→17:40)
[2016-10-30] MEDS: IPRATROPIUM 0.02% SOLN 0.5MG/2.5 ML NEB INH SCH ×5 (04:00→19:34)
[2016-10-30] MEDS: LEVALBUTEROL 1.25 MG/0.5 ML CONCENTRATE NEB INH SCH ×5 (04:00→19:35)
[2016-10-30] MEDS: HEPARIN SOD (PORCINE) 5000 UNITS/ML VIAL SC SCH ×3 (05:14→20:37)
[2016-10-30 05:38] LABS: BASO % 0.2 % (0.0-1.0); EOS # 0.1 K/mm3 (0.0-0.50); EOS % 1.6 % (0.0-3.0); LARGE UNSTAINED CELL # 0.1 K/mm3 (0.0-0.4); LARGE UNSTAINED CELL % 3.2 % (0.0-4.0); LYMPH # 0.5 K/mm3 (1.5-4.5); LYMPH % 13.4 % (24.0-44.0); MEAN CORPUSCULAR HEMOGLOBIN 31.7 pg (27.0-33.0); MEAN CORPUSCULAR HGB CONC 34.6 g/dl (32.0-36.5); MEAN CORPUSCULAR VOLUME 91.8 fl (80.0-96.0); MONO # 0.2 K/mm3 (0.0-0.8); MONO % 6.2 % (0.0-5.0); NEUTROPHILS # 2.8 K/mm3 (1.8-7.7); NEUTROPHILS % 75.4 % (36.0-66.0); PLATELET COUNT, AUTOMATED 146 k/mm3 (150-450); RED CELL DISTRIBUTION WIDTH 16.3 % (11.5-14.5); WHITE BLOOD COUNT 3.7 K/mm3 (4.0-10.0)
[2016-10-30 05:54] LABS: BLOOD UREA NITROGEN 13 MG/DL (7-18); CALCIUM LEVEL 8.4 MG/DL (8.8-10.2); CARBON DIOXIDE LEVEL 31 MEQ/L (21-32); CHLORIDE LEVEL 98 MEQ/L (98-107); CREATININE FOR GFR 1.01 MG/DL (0.70-1.30); GLOMERULAR FILTRATION RATE > 60.0 (>35); GLUCOSE, FASTING 130 MG/DL (83-110)
[2016-10-30 05:55] VITALS: BP 155/67
[2016-10-30 06:01] LABS: ANION GAP 7 MEQ/L (8-16); SODIUM LEVEL 136 MEQ/L (136-145)
[2016-10-30 06:02] LABS: POTASSIUM SERUM 3.7 MEQ/L (3.5-5.1)
[2016-10-30] MEDS ORDERED: AVEL1TAB PO (06:42)
[2016-10-30] MEDS ORDERED: BACITAB3 PO (06:42)
--- NOTE | 2016-10-30 08:57 | IPN ---
DATE: 10/30/2016 The patient is seen and examined at the bedside. Chart has been reviewed. This morning has no new complaints. No fever, chills, nausea, vomiting, cough, shortness of breath. The patient passed a home safety evaluation and has been afebrile. No other issues per nursing. Temperature 98.8, pulse 65, respiratory rate 17, blood pressure 155/67, 98% on room air. GENERAL: Awake, alert, oriented times three. Answering questions appropriately. Anicteric sclerae. No jaundice. No use of respiratory accessory muscles. Able to speak in full sentences. No jugular venous distention (JVD) or thyromegaly. LUNGS: Diminished breath sounds. Bilateral rhonchi with expiratory wheezing. HEART: S1, S2. Sinus rhythm. ABDOMEN: Soft, nontender, nondistended. Positive bowel sounds. EXTREMITIES: No pitting edema. LABORATORY DATA: White count 3.7, hemoglobin 8.9, hematocrit 25, platelet count 146, admission platelet count 157. Sodium 136, potassium 3.7, chloride 98, bicarbonate 31, BUN 13, creatinine 1, glucose 130. Microbiology: in sputum culture, final. 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 Sputum culture grew out Escherichia (E) coli and Enterobacter, both sensitive to Zosyn. Vancomycin has since been discontinued. The patient has remained afebrile with some mild leukopenia, 3.7 white count. CURRENT ISSUES: 1. Pneumonia, healthcare associated, currently on Zosyn and responding well. No fever or chills. White count improved. Continue with Avelox as an outpatient. 2. 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 Patient is to followup with his medical oncologist and radiation oncologist. 3. Hypoxic respiratory failure. Still on 2 liters nasal cannula. Secondary to lung cancer and pneumonia. 4. Chronic obstructive pulmonary disease (COPD). 5. History of coronary artery disease and coronary artery bypass graft (CABG). 6. Peripheral arterial disease. 7. Bilateral iliac stents. No active ischemic symptoms. Continue aspirin, statin, atenolol, and Lasix. 8. Hypertension. Continue current regimen. 9. Dyslipidemia. On statin. 10. Benign prostatic hypertrophy (BPH). On Flomax and finasteride. 11. Deep vein thrombosis (DVT) prophylaxis. Subcutaneous heparin. DISCHARGE PLAN: 10/31/2016 with outpatient followup with his medical oncologist and radiation oncologist.
[2016-10-30] MEDS ORDERED: MOM 30ML SUSPENSION UDC PO PRN (09:00)
[2016-10-30] MEDS: amLODIPine 5 MG TAB PO SCH (09:16)
[2016-10-30] MEDS: MULTIVITAMINS/MINERALS THERAP 1 TAB PO SCH (09:17)
[2016-10-30] MEDS: SENNA 8.6 MG TAB (SENOKOT) PO SCH ×2 (09:17→20:38)
[2016-10-30] MEDS: CitaloPRAM (CeleXA) 20 MG TAB PO SCH (09:17)
[2016-10-30] MEDS: traMADol 50 MG TAB PO SCH ×2 (09:17→20:39)
[2016-10-30] MEDS: FERROUS SULFATE 325MG TAB PO SCH (09:17)
[2016-10-30] MEDS: FOLIC ACID 1 MG TAB PO SCH (09:17)
[2016-10-30] MEDS: ATENOLOL 50 MG TAB PO SCH (09:17)
[2016-10-30] MEDS: TAMSULOSIN 0.4 MG CAP PO SCH (09:17)
[2016-10-30] MEDS: LIDOCAINE 5% (LIDODERM) PATCH TD SCH (09:18)
[2016-10-30] MEDS: FINASTERIDE 5 MG TAB PO SCH (09:18)
[2016-10-30] MEDS: ASPIRIN 81 MG ENTERIC TAB PO SCH (09:18)
[2016-10-30] MEDS: ATORVASTATIN 10 MG TAB PO SCH (09:18)
[2016-10-30] MEDS: FUROSEMIDE 20 MG TAB PO SCH ×2 (09:18→17:40)
[2016-10-30 14:00] VITALS: BP 159/67
[2016-10-30] MEDS: **NOTE PATIENT COMMENT** MISC XX SCH (20:39)
[2016-10-30 22:00] VITALS: BP 145/64
[2016-10-30] MEDS: zolPIDEM TARTRATE 5 MG TAB PO SCH (22:26)
[2016-10-31] MEDS: PIPERACILLIN/TAZOBACTAM SOD 3.375 GM in D5W MINI-BAG PLUS 50 ML IV SCH ×2 (02:06→05:19)
[2016-10-31] MEDS: IPRATROPIUM 0.02% SOLN 0.5MG/2.5 ML NEB INH SCH ×4 (04:00→12:00)
[2016-10-31] MEDS: LEVALBUTEROL 1.25 MG/0.5 ML CONCENTRATE NEB INH SCH ×4 (04:00→12:00)
[2016-10-31 05:58] LABS: BASO % 0.2 % (0.0-1.0); EOS % 1.5 % (0.0-3.0); LARGE UNSTAINED CELL # 0.1 K/mm3 (0.0-0.4); LARGE UNSTAINED CELL % 3.6 % (0.0-4.0); LYMPH # 0.7 K/mm3 (1.5-4.5); LYMPH % 18.7 % (24.0-44.0); MEAN CORPUSCULAR HEMOGLOBIN 31.1 pg (27.0-33.0); MEAN CORPUSCULAR HGB CONC 33.6 g/dl (32.0-36.5); MEAN CORPUSCULAR VOLUME 92.6 fl (80.0-96.0); MONO # 0.3 K/mm3 (0.0-0.8); MONO % 8.3 % (0.0-5.0); NEUTROPHILS # 2.1 K/mm3 (1.8-7.7); NEUTROPHILS % 67.6 % (36.0-66.0); PLATELET COUNT, AUTOMATED 148 k/mm3 (150-450); WHITE BLOOD COUNT 3.1 K/mm3 (4.0-10.0)
[2016-10-31 06:00] VITALS: BP 130/78
[2016-10-31] MEDS: HEPARIN SOD (PORCINE) 5000 UNITS/ML VIAL SC SCH (06:00)
[2016-10-31 06:10] LABS: ANION GAP 7 MEQ/L (8-16); BLOOD UREA NITROGEN 11 MG/DL (7-18); CALCIUM LEVEL 8.4 MG/DL (8.8-10.2); CARBON DIOXIDE LEVEL 29 MEQ/L (21-32); CHLORIDE LEVEL 98 MEQ/L (98-107); CREATININE FOR GFR 1.03 MG/DL (0.70-1.30); GLOMERULAR FILTRATION RATE > 60.0 (>35); GLUCOSE, FASTING 106 MG/DL (83-110); POTASSIUM SERUM 3.8 MEQ/L (3.5-5.1); SODIUM LEVEL 134 MEQ/L (136-145)
[2016-10-31] MEDS: LIDOCAINE 5% (LIDODERM) PATCH TD SCH ×2 (09:00→09:34)
[2016-10-31] MEDS: ASPIRIN 81 MG ENTERIC TAB PO SCH (09:32)
[2016-10-31] MEDS: FUROSEMIDE 20 MG TAB PO SCH (09:32)
[2016-10-31] MEDS: ATORVASTATIN 10 MG TAB PO SCH (09:32)
[2016-10-31] MEDS: SENNA 8.6 MG TAB (SENOKOT) PO SCH (09:32)
[2016-10-31] MEDS: FOLIC ACID 1 MG TAB PO SCH (09:32)
[2016-10-31] MEDS: FERROUS SULFATE 325MG TAB PO SCH (09:32)
[2016-10-31] MEDS: FINASTERIDE 5 MG TAB PO SCH (09:33)
[2016-10-31] MEDS: ATENOLOL 50 MG TAB PO SCH (09:33)
[2016-10-31] MEDS: amLODIPine 5 MG TAB PO SCH (09:33)
[2016-10-31] MEDS: MULTIVITAMINS/MINERALS THERAP 1 TAB PO SCH (09:33)
[2016-10-31] MEDS: TAMSULOSIN 0.4 MG CAP PO SCH (09:33)
[2016-10-31] MEDS: CitaloPRAM (CeleXA) 20 MG TAB PO SCH (09:34)
[2016-10-31] MEDS: traMADol 50 MG TAB PO SCH (09:34)
[2016-10-31] MEDS: **NOTE PATIENT COMMENT** MISC XX SCH (09:37)
[2016-10-31] MEDS ORDERED: E-Z-PAQUE 96% w/w SUSP 176GM BTL As Ordered ONE (09:39)
[2016-10-31] MEDS ORDERED: VARIBAR PUDDING 40% w/v 230ML TUBE As Ordered ONE (09:39)
[2016-10-31] MEDS ORDERED: VARIBAR NECTAR 40% w/v 240ML SUSP BTL As Ordered ONE (09:39)
[2016-10-31 14:00] VITALS: BP 136/82
--- NOTE | 2016-11-01 09:04 | REP ---
COOKIES SWALLOW: The procedure was performed under the direct supervision of Dr. Ferrari. The procedure was performed with Chio Carbajal from speech pathology present. 5 mL aliquots of nectar, pudding and thin consistency barium was administered. With thin consistency barium, there is penetration. A detailed report of this examination will be provided by speech pathology. 27 seconds of fluoroscopy time was utilized for this procedure. Reviewed by TABBY Meier 11/01/2016 05:18 PEdited and Signed by Quoc Ferrari MD 11/01/2016 05:20 P
--- NOTE | 2016-11-23 22:30 | DSES ---
DATE OF ADMISSION: 10/26/2016 DATE OF DISCHARGE: 10/31/2016 DISCHARGE DIAGNOSES: 1. Healthcare-associated pneumonia. 2. 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 3. Hypoxic respiratory failure secondary to lung cancer and pneumonia. 4. Chronic obstructive pulmonary disease (COPD). 5. History of coronary artery disease (CAD), coronary artery bypass graft (CABG) . 6. Peripheral arterial disease with bilateral iliac stents. 7. Hypertension. 8. Dyslipidemia. 9. Benign prostatic hypertrophy (BPH). DISCHARGE MEDICATIONS: - Bacid one tablet by mouth twice a day - Avelox 400 mg daily - albuterol every four as needed for shortness of breath - Norvasc 5 mg daily - aspirin 81 daily - atenolol 50 daily - atorvastatin 10 daily - citalopram 20 daily - ferrous sulfate 325 daily - finasteride 5 mg daily - folic acid 1 mg daily - Lasix 20 mg twice a day - mirtazapine 30 mg at bedtime as needed - multivitamin one tablet daily - nitroglycerin 0.4 as needed - Zofran 4 mg every six as needed - prochlorperazine 10 mg every eight as needed - Flomax 0.4 daily - tramadol 50 mg twice a day HOSPITAL COURSE: This is an 81-year-old male with a history of COPD, CAD, CABG, peripheral arterial disease with bilateral iliac stents, hypertension, dyslipidemia, right lung squamous-cell cancer diagnosed in August, status post chemotherapy times three, radiation times 11, who presented with cough productive of sputum, fever 103, admitted for healthcare-associated pneumonia and started on vancomycin and Zosyn. Sputum culture grew out Escherichia (E.) coli and enterobacter, both sensitive to Zosyn. Vancomycin had been discontinued. The patient has remained afebrile with some leukopenia 3.7 white count. The patient continued to improve clinically and was saturating 91-95% on room air. White count was leukopenic at 3.1. Microbiology grew out E. coli and enterobacter, both sensitive to Zosyn and Levaquin. The patient remained afebrile from 10/26 to 10/31 and was safely discharged home in stable condition to followup with his oncologist as outpatient. LABORATORY DATA: White count 3.1, hemoglobin 8.7, hematocrit 25, platelet count 148. Sodium 134, potassium 3.8, chloride 98, bicarbonate 29, BUN 11, creatinine 1.03, glucose of 106. MICROBIOLOGY: Two sets of blood culture 10/26/2016: No growth. Influenza A and B 10/26 negative. Sputum culture E. coli and enterobacter sensitive to Levaquin and Zosyn. Respiratory panel negative. Hemoccult blood 10/30 negative. IMAGING: CT chest 10/26 shows no evidence of pulmonary embolism (PE), cavitating right hilar mass suggestive of neoplasm, mediastinal hilar lymphadenopathy, multifocal pneumonia more prominent in left lower lobe. Minimal pleural effusion. Cervical spine CT: No acute bone pathology. Spondylolysis, multiple degenerative disc disease. Lumbar spine CT: Degenerative disc disease, spinal canal and foraminal narrowing. Mild chronic compression fracture of L4. Minimal chronic compression fracture of T12, T11, and L1. Cookie swallow: Due to complaints of dysphagia with nectar pudding and thin consistency was administered with thin consistent was administered and was inconsistent penetrations. TIME SPENT ON DISCHARGE: 30 minutes. MTDD
== END 2016-10-31 15:15 | disposition home or self-care (01) | DRG 190 ==
LOC: M ED 10-26 00:36 → M ED INP 10-26 06:56 → M MSPAV 10-26 15:18
PROVIDERS: ADMIT General Practice; ATTEND General Practice
DX: J44.0 Chronic obstructive pulmonary disease with (acute) lower respiratory infection (principal); J18.9 Pneumonia, unspecified organism; J96.91 Respiratory failure, unspecified with hypoxia; C34.91 Malignant neoplasm of unspecified part of right bronchus or lung; I25.10 Atherosclerotic heart disease of native coronary artery without angina pectoris; I73.9 Peripheral vascular disease, unspecified; I10 Essential (primary) hypertension; E78.5 Hyperlipidemia, unspecified; N40.0 Benign prostatic hyperplasia without lower urinary tract symptoms; Z79.82 Long term (current) use of aspirin; Z79.899 Other long term (current) drug therapy; F17.200 Nicotine dependence, unspecified, uncomplicated

== ENCOUNTER 2016-11-07 13:34 | Outpatient (RCR) | payer MEDICARE, OTHER ==
--- NOTE | 2016-11-07 14:16 | RADONC ---
RADIATION ONCOLOGY PROGRESS NOTE: DATE: 11/07/2016 CHART NO: [id number] Mr. Gresham is presently at a dose of 2880 cGy to his right lung and is tolerating treatments quite well at this point with no significant difficulties related to his radiation therapy. He is having no significant esophagitis or increased difficulty breathing. REVIEW OF SYSTEMS: The patient's review of systems is noncontributory. Denies nausea, vomiting, fevers, chills, night sweats, diplopia, headaches, anxiety or depression, anorexia, weight loss, visual disturbances, chest pain, urinary or bowel difficulties, bone pain, or neurological problems. PHYSICAL EXAMINATION: The patient's skin is in good condition with no evidence of radiation change present. There is no moist or dry desquamation. The remainder of his physical exam remains unchanged. Mr. Gresham is tolerating treatments quite well and radiation will continue as scheduled.
--- NOTE | 2016-11-15 07:09 | RADONC ---
RADIATION ONCOLOGY PROGRESS NOTE DATE: 11/14/2016 CHART NUMBER: [id number] Mr. Gresham is presently at a dose of 3780 cGy to his lung and is tolerating treatments quite well at this point with no complaints related to his radiation therapy. He is having no difficulty swallowing or increased shortness of breath. REVIEW OF SYSTEMS: The patient's review of systems is noncontributory. Denies nausea, vomiting, fevers, chills, night sweats, diplopia, headaches, anxiety or depression, anorexia, weight loss, visual disturbances, chest pain, urinary or bowel difficulties, bone pain, or neurological problems. PHYSICAL EXAMINATION: The patient's skin is in good condition with no evidence of radiation change present. There is no moist or dry desquamation. The remainder of his physical exam remains unchanged. Mr. Gresham is tolerating treatments quite well and radiation will continue as scheduled.
--- NOTE | 2016-11-22 08:39 | RADONC ---
RADIATION ONCOLOGY PROGRESS NOTE DATE: 11/21/2016 CHART NUMBER: [id number]. PROGRESS NOTE: Mr. Gresham is presently at a dose of 4680 cGy to his right lung and is tolerating treatments quite well at this point with no significant difficulties related to his radiation therapy. He is having no increased shortness of breath or difficulty swallowing. The triple mix is helping. REVIEW OF SYSTEMS: The patient's review of systems is positive for some esophagitis, which is alleviated with triple mix. It is otherwise largely noncontributory. Denies nausea, vomiting, fevers, chills, night sweats, diplopia, headaches, anxiety or depression, anorexia, weight loss, visual disturbances, chest pain, urinary or bowel difficulties, bone pain, or neurological problems. PHYSICAL EXAMINATION: The patient's skin is in good condition with no evidence of moist or dry desquamation. The remainder of his physical exam remains unchanged. Mr. Marga luna is tolerating treatments quite well and radiation will continue as scheduled.
--- NOTE | 2016-11-28 15:54 | RADONC ---
RADIATION ONCOLOGY PROGRESS NOTE DATE: 11/28/2016 CHART NUMBER: [id number] Mr. Gresham is thus far at a dose of 5400 cGy and was last treated on Saturday 11/25. The patient came in today with a temperature of overall 101 degrees. He reported that he began spiking fevers over the weekend. He also noted a productive cough of clear sputum as well as shortness of breath. He says overall he just does not feel well. The patient's review of systems is positive for a cough, some shortness of breath and fevers. He does not generally feel well. It is otherwise noncontributory. He denies nausea, vomiting, neurological problems, bone pain, urinary or bowel difficulties. PHYSICAL EXAMINATION: The patient's temperature today is 101.4. His skin is in good condition with no evidence of moist or dry desquamation. His lungs have some rhonchi bilaterally. The remainder of his physical exam remains unchanged. I have referred the patient to the emergency room for evaluation. He was recently hospitalized with pneumonia and feels that his symptoms are recurring.
[2016-11-28] MEDS ORDERED: CHERSYP3 PO (17:43)
[2016-11-28] MEDS ORDERED: TESS100C PO (17:43)
[2016-11-28] MEDS ORDERED: AMOX875T2 PO (17:43)
--- NOTE | 2016-11-29 09:09 | RADONC ---
RADIATION ONCOLOGY PROGRESS NOTE: DATE: 11/29/2016 CHART NUMBER: [id number]. PROGRESS NOTE: Mr. Gresham was sent by me to the ER yesterday for what appeared to me to be pneumonia. The ER did a chest x-ray and indeed, he did appear to have pneumonia. They started him on antibiotics. I called the patient at home this morning and asked him to take off at least today and tomorrow and get some rest. I also instructed him to continue his antibiotic therapy. I let the patient know that we are available to him and should he have any problems whatsoever to feel free to call or come in at anytime.
--- NOTE | 2016-12-07 07:08 | RADONC ---
RADIATION ONCOLOGY PROGRESS NOTE: DATE: 12/06/2016 CHART NO: [id number] Mr. Gresham is thus far at a dose of 5400 cGy to his right lung and was last treated on 11/25/2016. The patient developed pneumonia and was admitted at the [facility]. He therefore was unable to come in for treatment today. We will continue to follow this patient and reinitiate treatments once his condition stabilizes.
== END 2016-12-07 ==
LOC: M ONCR 13:34
PROVIDERS: ATTEND Radiology Radiation Oncology
DX: C34.11 Malignant neoplasm of upper lobe, right bronchus or lung (principal)

== ENCOUNTER → 2016-11-07 | Outpatient (REF) | payer MEDICARE, OTHER ==
[~2016-11-07] MED LIST changes: +AVEL1TAB PO; +BACITAB3 PO; +NITR4TASL SL; +ONDA4TAB6 PO; +PROC10TA PO
== END ==
LOC: M LAB REF 12:02
PROVIDERS: ATTEND Internal Medicine Medical Oncology
DX: D64.9 Anemia, unspecified (principal)

== ENCOUNTER 2016-11-08 11:12 | Outpatient (CLI) | payer MEDICARE, OTHER ==
[~2016-11-08] VITALS: Ht 172.7 cm; Wt 71.2 kg
[2016-11-08] MEDS ORDERED: ACETAMINOPHEN TAB 650MG DOSE (2X325MG) PO ONE (11:30)
[2016-11-08] MEDS ORDERED: diphenhydrAMINE 25 MG CAP PO ONE (11:30)
== END 2016-11-08 16:15 | disposition home or self-care (01) ==
LOC: M INFU 11:12
PROVIDERS: ATTEND Internal Medicine Medical Oncology
DX: D64.9 Anemia, unspecified (principal); I10 Essential (primary) hypertension; E78.5 Hyperlipidemia, unspecified; I20.9 Angina pectoris, unspecified; Z85.038 Personal history of other malignant neoplasm of large intestine; Z85.118 Personal history of other malignant neoplasm of bronchus and lung; Z87.891 Personal history of nicotine dependence; Z79.82 Long term (current) use of aspirin; Z79.899 Other long term (current) drug therapy; Z88.8 Allergy status to other drugs, medicaments and biological substances
CPT/HCPCS: 36430; P9016

== ENCOUNTER 2016-11-28 15:12 | Emergency (ER) | payer MEDICARE, OTHER ==
[~2016-11-28] VITALS: Ht 172.7 cm; Wt 65.8 kg
[2016-11-28] MEDS ORDERED: IPRATROPIUM 0.5MG/ALBUTEROL 2.5MG INH SOL UD 3ML (DUONEB)(J7620) NEB ONE (17:30)
[2016-11-28] MEDS ORDERED: NORCO, ANEXSIA 5/325MG TABLET (HYDROcodone/ACETAMINOPHEN) PO ONE (17:30)
[2016-11-28] MEDS ORDERED: TESS100C PO (17:43)
[2016-11-28] MEDS ORDERED: CHERSYP3 PO (17:43)
[2016-11-28] MEDS ORDERED: AMOX875T2 PO (17:43)
[2016-11-28 17:47] LABS: BASO % 0.2 % (0.0-1.0); EOS % 1.2 % (0.0-3.0); LARGE UNSTAINED CELL # 0.2 K/mm3 (0.0-0.4); LARGE UNSTAINED CELL % 3.9 % (0.0-4.0); LYMPH # 0.3 K/mm3 (1.5-4.5); LYMPH % 7.7 % (24.0-44.0); MEAN CORPUSCULAR HEMOGLOBIN 34.1 pg (27.0-33.0); MEAN CORPUSCULAR HGB CONC 36.2 g/dl (32.0-36.5); MEAN CORPUSCULAR VOLUME 94.1 fl (80.0-96.0); MONO # 0.3 K/mm3 (0.0-0.8); MONO % 6.2 % (0.0-5.0); NEUTROPHILS # 3.6 K/mm3 (1.8-7.7); NEUTROPHILS % 80.8 % (36.0-66.0); PLATELET COUNT, AUTOMATED 148 k/mm3 (150-450); RED CELL DISTRIBUTION WIDTH 18.8 % (11.5-14.5); WHITE BLOOD COUNT 4.5 K/mm3 (4.0-10.0)
[2016-11-28] MEDS ORDERED: AUGMENTIN 875 MG TAB PO ONE (18:15)
--- NOTE | 2016-11-28 18:19 | REP ---
Clinical: Chest pain and flu-like symptoms. Technique: PA and lateral. Comparison: 10/26/2016. Findings: Mediastinum and cardiac silhouette are stable. Chronic fibrosis and interstitial changes are appreciated bilaterally. Right upper lobe infiltrate and possible left lower lobe atelectasis are identified. No effusion. No pneumothorax. Skeletal structures demonstrate osteopenia and degenerative change. Impression: New right upper lobe infiltrate suggesting pneumonia and suspected superimposed left basilar atelectasis. Signed by Delano Martinez MD 11/28/2016 06:11 P
[2016-11-28 18:37] VITALS: BP 119/55
[2016-12-01 00:08] LABS: Lyme Disease IgG/IgM Antibodie <0.91 ISR (0.00-0.90); Lyme Disease IgM Ab Quantitati <0.80 index (0.00-0.79)
== END 2016-11-28 18:40 | disposition home or self-care (01) ==
LOC: M ED 17:26
DX: J18.9 Pneumonia, unspecified organism (principal); I10 Essential (primary) hypertension; E78.5 Hyperlipidemia, unspecified; Z95.5 Presence of coronary angioplasty implant and graft; Z79.899 Other long term (current) drug therapy; Z79.82 Long term (current) use of aspirin